=== PATIENT | female | born 1970 | race Caucasian/White ===

== ENCOUNTER 2019-06-10 09:57 | Emergency (ER) | payer OTHER, SELFPAY ==
[2019-06-10 10:10] VITALS: BP 113/77; PULSE 101; RESP 20; O2SAT 99
[2019-06-10 10:11] VITALS: BP 113/77; PULSE 92; RESP 18; TEMP 36.6; O2SAT 100; BMI 25.8
--- NOTE | 2019-06-10 10:29 | ED_ITS ---
HPI - Nausea/Vomiting/Diarrhea General: Chief complaint: Nausea/Vomiting/Diarrhea Stated complaint: Diabetic needs fluids Time Seen by Provider: 06/10/19 10:10 Source: patient Mode of arrival: ambulatory Limitations: no limitations History of Present Illness: HPI Narrative: 48-year-old female has a history of type I diabetic and states she has had a vomiting and diarrhea for last day starting roughly 8 hours ago. She had some abdominal cramping as well. She was concerned as her sugar was at 300 wanted to be seen to make sure she does not go into DKA. She denies any fevers. Patient is not tachycardic. MD elicited complaint: nausea and vomiting Onset (ago): hour(s) Description of vomiting: food contents Associated nausea: Yes Associated abdominal pain: Yes Location of pain: Diffuse Pain consistency: intermittent Severity: mild Quality: cramping Exacerbating factors: none Relieving factors: none Associated symtoms: Reports nausea; Denies change in vision, chest pain or headache(s) Review of Systems Const: Denies: fever or chills Eyes: Denies: change in vision ENMT: Denies: throat pain or mouth pain Card: Denies: chest pain Resp: Denies: shortness of breath GI: Reports: abdominal pain, nausea and vomiting; Denies: diarrhea : Denies: difficulty urinating Musc: Denies: back pain or joint pain Skin/Breast: Denies: rash Neuro: Denies: headache or behavioral changes Psych: Denies: depression Endo: Denies: excessive urination Murali/Lymph: Denies: easy bruising All/Imm: Denies: hives PFSH ED PFSH: Statuses (acute, chronic, etc) shown below reflect problem list status as previously entered and may not be historically accurate Social History Smoking and tobacco status: never smoked Physical Exam Const: COMMON NORMALS: no apparent distress and healthy appearing HENMT: COMMON NORMALS: normocephalic and external nose normal HEAD & SCALP: normocephalic NOSE: external nose normal and no nasal discharge (nasal dischage) Eye: COMMON NORMALS: PERRL PUPIL: Yes PERRL Neck/C-Spine: COMMON NORMALS: full ROM and no lymphadenopathy Chest: COMMONS NORMALS: inspection of chest normal Resp: COMMON NORMALS: normal respiratory effort and clear to auscultation bilaterally AUSCULTATION: clear to auscultation bilaterally Cardio: COMMON NORMALS: regular rate and regular rhythm RATE: regular rate RHYTHM: regular rhythm GI: COMMON NORMALS: soft to palpation PALPATION: Yes soft Extremity: COMMON NORMALS: normal to inspection, full ROM and normal capillary refill Psych: COMMON NORMALS: mental status grossly normal and cooperative Skin: COMMON NORMALS: no rashes or lesions noted GENERAL SKIN EXAM: no rashes or lesions noted Course Vital Signs: Vital signs: Vital Signs Temperature 97.8 F 06/10/19 10:11 Pulse Rate 82 06/10/19 12:50 Respiratory Rate 18 06/10/19 12:50 Blood Pressure 142/72 06/10/19 12:50 Pulse Oximetry 97 06/10/19 12:50 MDM - Nausea/Vomiting/Diarrhea MDM Narrative: Medical decision making narrative: Patient presents here with vomiting along with dehydration. Patient has hyperglycemia without DKA. Patient's blood sugars improving with IV fluids here and she feels improved. She does have Zofran at home and is stable for discharge. She is to follow-up with her primary care doctor in 2 to 5 days and return if worsening. Lab Data: Labs: Lab Results 06/10/19 06/10/19 06/10/19 Range/Units 10:37 10:37 11:11 WBC 6.6 (4.0-10.0) 10^3/ uL RBC 5.00 (4.1-5.3) 10^6/u L Hgb 13.7 (11.5-15.3) g/dL Hct 42.1 (37.0-47.0) % MCV 84.2 (81-99) fL MCH 27.4 L (28.0-34.0) pg MCHC 32.5 (30.0-36.0) g/dL RDW 13.3 (12.1-15.1) % Plt Count 236 (130-400) 10^3/c mm MPV 9.8 (7.4-10.4) fL Neut % (Auto) 83.2 % Lymph % (Auto) 12.7 % [place] % (Auto) 3.2 % Eos % (Auto) 0.3 % Baso % (Auto) 0.3 % Neut # (Auto) 5.5 (1.8-7.7) 10^3/u L Lymph # (Auto) 0.8 (0.8-4.8) 10^3/u L [place] # (Auto) 0.2 (0.2-0.9) 10^3/u L Eos # (Auto) 0.0 (0.0-0.8) 10^3/u L Baso # (Auto) 0.0 (0.0-0.1) 10^3/u L Nucleated RBC % (a uto) 0 % Nucleated RBCs # 0.0 /100WBC Sodium 137 (136-145) mmol/L Potassium 3.8 (3.5-5.1) mmol/L Chloride 99 (98-107) mmol/L Carbon Dioxide 24 (22-29) mmol/L Anion Gap 17.8 (5-19) BUN 18 (6-20) mg/dL Creatinine 0.6 (0.5-0.9) mg/dL GFR Calculation 107.6 (90-130) mL/min Glucose 324 H (74-109) mg/dL Calcium 10.0 (8.6-10.0) mg/Dl Total Bilirubin 0.4 (0.15-1.2) mg/dL AST 20 (0-32) U/L ALT 22 (0-33) U/L Alkaline Phosphata se 66 (35-105) IU/L Total Protein 7.1 (6.6-8.7) g/dL Albumin 5.1 (3.5-5.2) g/dL Globulin 2.0 (1.3-4.6) g/dL Lipase 10 L (13-60) U/L Urine Color Yellow (Yellow) Urine Appearance Clear (CLEAR) Urine pH 5 (5-7) Ur Specific Gravit y 1.020 (1.005-1.030) Urine Protein Neg (Negative) Urine Glucose (UA) 4+ H (Normal) Urine Ketones 2+ H (Negative) Urine Occult Blood Neg (Negative) Urine Nitrate Negative (Negative) Urine Bilirubin Neg (NEGATIVE) Urine Urobilinogen Norm (Negative) mg/dL Ur Leukocyte Qi ase Negative (Negative) Urine RBC None (0-2) /hpf Urine WBC Rare (0-5) /hpf Ur Squamous Epith Cells 0-4 H (0-5) Urine Bacteria None (NONE) Urine Mucus 1+ Urine Yeast Trace Discharge Plan Discharge Patient Disposition: Home, Self-Care Clinical Impression: Acute hyperglycemia Vomiting Qualifiers: Vomiting type: unspecified Vomiting Intractability: non-intractable Nausea presence: with nausea Qualified Code(s): R11.2 - Nausea with vomiting, unspecified Condition: Stable Prescriptions: No Action Novolog Mix 70-30 U-100 Insuln 100 unit/mL (70-30) Solution 0 sliding scale dose SUBCUT PRN RF: 0 Toujeo SoloStar U-300 Insulin 300 unit/mL (1.5 mL) Insulin Pen 30 unit SUBCUT DAILY RF: 0 gabapentin 100 mg Capsule 100 mg PO BID RF: 0 Discharge Orders: Discharge Order (Routine); Ordered 06/10/19 Ordered By: Dom Smith Referrals: Steve Lerma MD [Family Provider] - Discharge Diet: Advance as tolerated Discharge Activity: Resume usual activity Patient Instructions: Vomiting - Adult Discharge Date/Time: 06/10/19 12:55 Coding Level of Care Code ED Newborn Hearing Screener for Nabil Manzo Exam Problem Focused
[2019-06-10 10:43] LABS: Basophils % 0.3 %; Eosinophils % 0.3 %; Hematocrit 42.1 % (37.0-47.0); Hemoglobin 13.7 g/dL (11.5-15.3); Lymphocytes # 0.8 10^3/uL (0.8-4.8); Lymphocytes % 12.7 %; Mean Corpuscular HGB Conc 32.5 g/dL (30.0-36.0); Mean Corpuscular Hemoglobin 27.4 pg (28.0-34.0); Mean Corpuscular Volume 84.2 fL (81-99); Mean Platelet Volume 9.8 fL (7.4-10.4); Monocytes # 0.2 10^3/uL (0.2-0.9); Monocytes % 3.2 %; Neutrophils # 5.5 10^3/uL (1.8-7.7); Neutrophils % 83.2 %; Nucleated Red Blood Cells % 0 %; Platelet Count 236 10^3/cmm (130-400); Red Cell Distribution Width 13.3 % (12.1-15.1); White Blood Count 6.6 10^3/uL (4.0-10.0)
[2019-06-10 10:58] LABS: Alanine Aminotransferase 22 U/L (0-33); Albumin Level 5.1 g/dL (3.5-5.2); Alkaline Phosphatase 66 IU/L (35-105); Anion Gap 17.8 (5-19); Aspartate Amino Transferase 20 U/L (0-32); Blood Urea Nitrogen 18 mg/dL (6-20); Carbon Dioxide 24 mmol/L (22-29); Chloride 99 mmol/L (98-107); Glomerular Filtration Rate 107.6 mL/min (90-130); Glucose 324 mg/dL (74-109); Lipase 10 U/L (13-60); Potassium 3.8 mmol/L (3.5-5.1); Sodium 137 mmol/L (136-145); Total Bilirubin 0.4 mg/dL (0.15-1.2); Total Protein 7.1 g/dL (6.6-8.7)
[2019-06-10 11:00] VITALS: BP 113/79; PULSE 87; RESP 15; O2SAT 98
[2019-06-10] MEDS: sodium chloride 0.9% 1,000 ML 999 ML IV (11:00)
[2019-06-10] MEDS: ondansetron 2 mg/ML SDV 2 mL 4 MG IVP (11:00)
[2019-06-10 11:30] VITALS: BP 108/70; PULSE 84; RESP 15; O2SAT 100
[2019-06-10 11:40] LABS: Glucose Urine UA 4+ (Normal); Protein Urine Neg (Negative); Urine Appearance Clear (CLEAR); Urine Color Yellow (Yellow); pH Urine 5 (5-7)
[2019-06-10 11:41] LABS: Bilirubin Urine Neg (NEGATIVE); Blood Urine Neg (Negative); Ketones Urine 2+ (Negative); Leukocyte Esterase Urine Negative (Negative); Nitrate Urine Negative (Negative); Urobilinogen Urine Norm (Negative)
[2019-06-10 11:43] LABS: Add Urine Culture? No; Squamous Epithelial Cell Urine 0-4 (0-5)
[2019-06-10 11:44] LABS: Mucus Urine 1+; WBC Urine RARE /hpf (0-5)
[2019-06-10 11:55] VITALS: BP 114/69; PULSE 91; RESP 21; O2SAT 99
--- NOTE | 2019-06-10 11:55 | PC.NURSE ---
doctor in room
[2019-06-10] MEDS: ketorolac 30 mg/mL INJ IVP (12:29)
[2019-06-10 12:50] VITALS: BP 142/72; PULSE 82; RESP 18; O2SAT 97
== END 2019-06-10 12:55 | disposition home or self-care (01) ==
PROVIDERS: Emergency Provider Emergency Medicine; Family Provider Internal Medicine
DX: R73.9 Hyperglycemia, unspecified (principal); Z79.4 Long term (current) use of insulin
CPT/HCPCS: 36415; 80053; 81001; 83690; 85025; 96360; 96361; 96374; 99282; J1885; J2405; J7030

== ENCOUNTER → 2020-03-12 16:09 | Outpatient (BNVA) | payer OTHER, SELFPAY | PROVIDERS: Family Provider Internal Medicine; Visit Provider Internal Medicine | DX: E10.21 Type 1 diabetes mellitus with diabetic nephropathy (principal); E10.40 Type 1 diabetes mellitus with diabetic neuropathy, unspecified; Z79.4 Long term (current) use of insulin; E78.5 Hyperlipidemia, unspecified | CPT/HCPCS: 99204 ==

== ENCOUNTER → 2020-04-08 09:22 | Outpatient (BNVA) | payer OTHER, SELFPAY | PROVIDERS: Family Provider Internal Medicine; Visit Provider Internal Medicine | DX: E10.21 Type 1 diabetes mellitus with diabetic nephropathy (principal); E10.40 Type 1 diabetes mellitus with diabetic neuropathy, unspecified; Z79.4 Long term (current) use of insulin; E78.5 Hyperlipidemia, unspecified | CPT/HCPCS: 99214 ==

== ENCOUNTER → 2020-06-30 16:00 | Outpatient (BNVA) | payer OTHER, SELFPAY | PROVIDERS: Family Provider Internal Medicine; Visit Provider Nurse Practitioner Family | DX: Z20.828 Contact with and (suspected) exposure to other viral communicable diseases (principal); J06.9 Acute upper respiratory infection, unspecified | CPT/HCPCS: 87635 ==

== ENCOUNTER 2020-07-03 08:45 | Outpatient (CLI) | payer OTHER, SELFPAY ==
--- NOTE | 2020-07-03 09:08 | A.OFFVIS_ITS ---
Patient Information [facility] COVID test results: Nasal/Oral Coronavirus 2019 PCR Detected H 06/30/20 16:00 06/30/20 Criteria/Plan Inclusion/Exclusion Criteria weight >/= 40kg has diabetes not requiring hospitalization and not requiring oxygen (if not chronically on oxygen) Patient education patient/caregiver received/reviewed fact sheet, Emergency Use Authorization/unapproved drug status discussed with patient/caregiver, alternatives to this treatment discussed with patient/caregiver, risks and benefits of medication reviewed with patient/caregiver, patient/caregiver given opportunity for questions, which were answered and patient/caregiver consents to receiving Monoclonal Antibody Treatment Plan for treatment Meets criteria for Monoclonal Antibody infusion Ordering Monoclonal Antibody infusion for today
[2020-07-03 09:09] VITALS: BP 106/68; PULSE 78; RESP 17; O2SAT 99
[2020-07-03 09:19] VITALS: BMI 27.4
[2020-07-03 09:20] VITALS: BP 119/76; PULSE 89; RESP 17; O2SAT 99
[2020-07-03 10:21] VITALS: BP 100/77; PULSE 79; RESP 16; O2SAT 99
[2020-07-03 10:48] VITALS: BP 103/76; PULSE 79; RESP 18; O2SAT 99
[2020-07-03 11:35] VITALS: BP 106/73; PULSE 77; RESP 17; O2SAT 98
[2020-07-03 11:42] VITALS: BP 106/73; PULSE 77; RESP 17; O2SAT 98
--- NOTE | 2020-07-10 16:05 | DCPLANNER ---
Addendum entered by Julia Bryant 07/17/20 16:15: manager strategic marketing called to check on patient after getting the BAM infusion. manager strategic marketing spoke with patient, she stated that she was doing really good, she is having a hard time getting rid of a cough that she has but other than that feeling really good. Patient also stated that she has not been admitted to hospital anywhere. Original Note: manager strategic marketing had message that patient received the BAM infusion. manager strategic marketing called to check on patient after getting the infusion. Patient stated that before the infusion she had every symptom, she had a fever, body aches, her bones hurt, she had a sore throat, she felt exhausted. Patient stated that after the infusion she is feeling much better, she still has a sore throat, and cough.
== END 2020-07-03 11:43 | disposition home or self-care (01) ==
LOC: OPS 08:46
PROVIDERS: Referring Provider Nurse Practitioner Family; Visit Provider Internal Medicine
DX: U07.1 COVID-19 (principal)

== ENCOUNTER 2021-01-12 11:49 | Inpatient (IN) | payer OTHER, SELFPAY ==
--- NOTE | 2021-01-12 12:03 | ECG_ITS ---
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 Measurements Intervals [place] Rate: 107 P: 76 ME: 136 QRS: 93 QRSD: 89 T: 46 QT: 323 QTc: 432 Interpretive Statements SINUS TACHYCARDIA BORDERLINE RIGHT AXIS DEVIATION [QRS AXIS > 90] ABNORMAL RHYTHM ECG Compared to ECG 01/07/2018 10:08:46 Short [place] interval no longer present Electronically Signed On 01-15-2021 7:46:08 CDT by Divya Woodward M.D. [id number]
[2021-01-12 13:03] VITALS: BP 105/71; PULSE 108; RESP 19; TEMP 36.9; O2SAT 98
--- NOTE | 2021-01-12 13:24 | XRR_ITS ---
PROCEDURE INFORMATION: Exam: XR Right Toe(s) Exam date and time: 01/12/2021 1:24 PM Age: 50 years old Clinical indication: Condition or disease; Other: Infection; Additional info: Great toe infection TECHNIQUE: Imaging protocol: XR Right toes. Views: Minimum 2 views. COMPARISON: No relevant prior studies available. FINDINGS: Bones/joints: There is no evidence for acute fracture or malalignment. No radiographic evidence for osteomyelitis. The joint space is intact. Soft tissues: There is soft tissue swelling of the right 1st digit. XR/XR toe RT min 2V 38006 IMPRESSION: No radiographic evidence for osteomyelitis.
[2021-01-12 14:02] LABS: Basophils # 0.1 10^3/uL (0.0-0.1); Basophils % 0.5 %; Eosinophils % 0.3 %; Hematocrit 45.6 % (37.0-47.0); Hemoglobin 14.6 g/dL (11.5-15.3); Lymphocytes # 1.1 10^3/uL (0.8-4.8); Lymphocytes % 10.5 %; Mean Corpuscular Hemoglobin 27.8 pg (28.0-34.0); Mean Corpuscular Volume 86.7 fL (81-99); Mean Platelet Volume 10.1 fL (7.4-10.4); Monocytes # 0.4 10^3/uL (0.2-0.9); Monocytes % 3.8 %; Neutrophils # 8.79 10^3/uL (1.8-7.7); Neutrophils % 84.4 %; Nucleated Red Blood Cells % 0 %; Platelet Count 221 10^3/cmm (130-400); Red Blood Count 5.26 10^6/uL (4.1-5.3); Red Cell Distribution Width 12.9 % (12.1-15.1); White Blood Count 10.4 10^3/uL (4.0-10.0)
--- NOTE | 2021-01-12 14:03 | ECG_ITS ---
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 Measurements Intervals [place] Rate: 120 P: 72 KS: 112 QRS: 67 QRSD: 90 T: 46 QT: 316 QTc: 448 Interpretive Statements SINUS TACHYCARDIA WITH SHORT [place] INTERVAL ABNORMAL RHYTHM ECG Compared to ECG 01/12/2021 20:54:33 Short [place] interval now present Electronically Signed On 01-15-2021 10:05:29 CDT by Divya Woodward M.D. [id number]
[2021-01-12 14:32] LABS: Troponin(5th) Baseline 8 ng/L (0-10)
[2021-01-12 14:33] LABS: Ketone (Acetest) Serum Positive (Negative)
[2021-01-12 15:19] LABS: Alanine Aminotransferase 54 U/L (0-33); Albumin Level 4.7 g/dL (3.5-5.2); Alkaline Phosphatase 93 IU/L (35-105); Anion Gap 29.8 (5-19); Aspartate Amino Transferase 29 U/L (0-32); Blood Urea Nitrogen 16 mg/dL (6-20); C Reactive Protein 12.7 mg/L (0.0-4.9); Calcium 9.6 mg/dL (8.5-10.5); Carbon Dioxide 14 mmol/L (22-29); Chloride 96 mmol/L (98-107); Globulin 3.5 g/dL (1.3-4.6); Glomerular Filtration Rate 89.3 mL/min (90-130); Glucose 349 mg/dL (65-115); Osmolality Calculated 295 mOsm/kg (285-295); Potassium 4.8 mmol/L (3.5-5.1); Sodium 135 mmol/L (136-145); Total Bilirubin 0.4 mg/dL (0.15-1.2); Total Protein 8.2 g/dL (6.6-8.7)
--- NOTE | 2021-01-12 18:03 | ECG_ITS ---
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 Measurements Intervals [place] Rate: 121 P: 66 VA: 118 QRS: 68 QRSD: 89 T: 56 QT: 351 QTc: 499 Interpretive Statements SINUS TACHYCARDIA WITH SHORT [place] INTERVAL NONSPECIFIC T-WAVE ABNORMALITY ABNORMAL RHYTHM ECG Compared to ECG 01/12/2021 23:40:23 T-wave abnormality now present Electronically Signed On 01-15-2021 10:04:55 CDT by Divya Woodward M.D. [id number]
[2021-01-12 18:04] LABS: Lactic Sepsis W/Reflex 1.7 mmol/L (0.5-2.2)
[2021-01-12 18:22] LABS: Glucose Point of Care 380 mg/dL (70-110)
[2021-01-12 20:02] LABS: ABG PCO2 21.3 mmHg (35-45); Arterial Blood Gas Hematocrit 43.6 % (37-47); Base Excess ABG -18.4 mmol/L (-2.0-2.0); Blood Gas Allen Test Pos; Blood Gas Sample Site Radial, left; Blood Gas Sample Type Arterial; Oxygen Device ROOM AIR
[2021-01-12 20:03] LABS: ABG PH Result 7.18 (7.35-7.45)
[2021-01-12 20:46] LABS: Troponin 5 6HR 6.95 ng/L (0-10)
[2021-01-12 20:47] LABS: Troponin 5 6HR Delta -1.05 ng/L (0-12)
--- NOTE | 2021-01-12 21:02 | ED_ITS ---
HPI - General Adult General: Chief complaint: General Medical Stated complaint: DIARRHEA/WEAKNESS/BURNING IN CHEST Time Seen by Provider: 01/12/21 20:52 Source: patient Mode of arrival: ambulatory Limitations: no limitations History of Present Illness: HPI narrative: 42-year-old female has history of type 1 diabetes. States that she thinks she may be in DKA she been feeling sick all day and tachycardic. Her blood sugars been running in the 3 and 400s as well. She states she has had slight redness to her right great toe. Denies any vomiting or diarrhea. Denies any fevers. Associated symptoms: Deny chest pain, dyspnea, headache(s), nausea, rash or vomiting Review of Systems Const: Denies: fever(s), chills, body aches or change in appetite Eyes: Denies: blurry vision or eye discomfort ENMT: Denies: throat pain or dental pain Card: Denies: chest pain Resp: Denies: dyspnea GI: Denies: abdominal pain, nausea, vomiting or diarrhea : Denies: dysuria Musc: Denies: neck pain or back pain Skin/Breast: Denies: rash Neuro: Denies: headache(s) Psych: Denies: depression Murali/Lymph: Denies: easy bruising All/Imm: Denies: urticaria PFSH ED PFSH: Medical History (Updated 01/13/21 @ 02:07 by Dom Smith MD) FH: cholecystectomy Type 1 diabetes Surgical History History of partial hysterectomy Social History Smoking and tobacco status: never smoked Alcohol intake: never Physical Exam Const: COMMON NORMALS: no acute distress, patient oriented x3 and healthy appearing HENMT: COMMON NORMALS: normocephalic and atraumatic HEAD & SCALP: normocephalic and atraumatic Eye: COMMON NORMALS: Equal, round and reactive pupils present and EOMs intact bilaterally PUPIL: Yes Equal, round and reactive pupils present Neck/C-Spine: COMMON NORMALS: full ROM and supple Chest: COMMONS NORMALS: normal inspection of the chest and normal palpation of entire chest wall Resp: COMMON NORMALS: normal respiratory effort, No retractions, No use of accessory muscles and clear to auscultation bilaterally AUSCULTATION: clear to auscultation bilaterally Cardio: COMMON NORMALS: regular rhythm and No murmurs present (Cardio) RATE: tachycardic RHYTHM: regular rhythm GI: COMMON NORMALS: Normal to inspection, nondistended, normoactive bowel sounds present, Soft to palpation, non-tender and no masses PALPATION: Yes Soft to palpation Extremity: COMMON NORMALS: normal to inspection and full ROM Neuro: COMMON NORMALS: patient oriented x3, moves all extremities and no focal motor deficits Psych: COMMON NORMALS: mental status grossly normal, Normal thought process present and cooperative THOUGHT PROCESS: Normal thought process present Skin: COMMON NORMALS: no rashes or lesions noted and no wounds GENERAL SKIN EXAM: no rashes or lesions noted Course Vital Signs: Vital signs: Vital Signs Temperature 98.4 F 01/12/21 13:03 Pulse Rate 119 H 01/13/21 01:08 Respiratory Rate 16 01/13/21 01:08 Blood Pressure 97/48 01/13/21 01:08 Pulse Oximetry 100 01/13/21 01:08 MDM - General Adult MDM Narrative: Medical decision making narrative: Patient presents here in DKA. I spoke to Dr. Chavez at 2100 and she placed orders in and will plan on being an ICU admission and hold in the ER till an ICU bed is available. Lab Data: Labs: Lab Results 01/12/21 01/12/21 01/12/21 Range/Units 13:02 13:48 13:48 WBC 10.4 H (4.0-10.0) 10^3/ uL RBC 5.26 (4.1-5.3) 10^6/u L Hgb 14.6 (11.5-15.3) g/dL Hct 45.6 (37.0-47.0) % MCV 86.7 (81-99) fL MCH 27.8 L (28.0-34.0) pg MCHC 32.0 (30.0-36.0) g/dL RDW 12.9 (12.1-15.1) % Plt Count 221 (130-400) 10^3/c mm MPV 10.1 (7.4-10.4) fL Neut % (Auto) 84.4 % Lymph % (Auto) 10.5 % [place] % (Auto) 3.8 % Eos % (Auto) 0.3 % Baso % (Auto) 0.5 % Neut # (Auto) 8.79 H (1.8-7.7) 10^3/u L Lymph # (Auto) 1.1 (0.8-4.8) 10^3/u L [place] # (Auto) 0.4 (0.2-0.9) 10^3/u L Eos # (Auto) 0.0 (0.0-0.8) 10^3/u L Baso # (Auto) 0.1 (0.0-0.1) 10^3/u L Nucleated RBC % (a uto) 0 % Nucleated RBCs # 0.0 /100WBC Specimen Type Sample Site ABG pH (7.35-7.45) ABG pCO2 (35-45) mmHg ABG pO2 (80.0-100.0) mmH g ABG HCO3 (22-26) mmol/L ABG Base Excess (-2.0-2.0) mmol/ L Genaro Test Hematocrit (37-47) % O2 Delivery Device Map Clerk ID Sodium 135 L (136-145) mmol/L Potassium 4.8 (3.5-5.1) mmol/L Chloride 96 L (98-107) mmol/L Carbon Dioxide 14 L (22-29) mmol/L Anion Gap 29.8 H (5-19) BUN 16 (6-20) mg/dL Creatinine 0.7 (0.5-0.9) mg/dL GFR Calculation 89.3 L (90-130) mL/min Glucose 349 H (65-115) mg/dL POC Glucose 380 H (70-110) mg/dL Calculated Osmolal ity 295 (285-295) mOsm/k g Lactic Acid (0.5-2.2) mmol/L Calcium 9.6 (8.5-10.5) mg/dL Total Bilirubin 0.4 (0.15-1.2) mg/dL AST 29 (0-32) U/L ALT 54 H (0-33) U/L Alkaline Phosphata se 93 (35-105) IU/L Troponin T Baselin e (0-10) ng/L Troponin T 120 Min [place] (0-10) ng/L Delta Troponin T (0-10) ABS# Troponin T Hi Sens 6Hr (0-10) ng/L Troponin T Hi Sens 6Hr Delta (0-12) ng/L C-Reactive Protein 12.7 H (0.0-4.9) mg/L Total Protein 8.2 (6.6-8.7) g/dL Albumin 4.7 (3.5-5.2) g/dL Globulin 3.5 (1.3-4.6) g/dL Urine Color (Yellow) Urine Appearance (CLEAR) Urine pH (5-7) Ur Specific Gravit y (1.005-1.030) Urine Protein (Negative) Urine Glucose (UA) (Normal) Urine Ketones (Negative) Urine Blood (Negative) Urine Nitrate (Negative) Urine Bilirubin (Negative) Urine Urobilinogen (Negative) mg/dL Ur Leukocyte Qi ase (Negative) Serum Ketones (Negative) 01/12/21 01/12/21 01/12/21 Range/Units 13:48 13:48 17:20 WBC (4.0-10.0) 10^3/ uL RBC (4.1-5.3) 10^6/u L Hgb (11.5-15.3) g/dL Hct (37.0-47.0) % MCV (81-99) fL MCH (28.0-34.0) pg MCHC (30.0-36.0) g/dL RDW (12.1-15.1) % Plt Count (130-400) 10^3/c mm MPV (7.4-10.4) fL Neut % (Auto) % Lymph % (Auto) % [place] % (Auto) % Eos % (Auto) % Baso % (Auto) % Neut # (Auto) (1.8-7.7) 10^3/u L Lymph # (Auto) (0.8-4.8) 10^3/u L [place] # (Auto) (0.2-0.9) 10^3/u L Eos # (Auto) (0.0-0.8) 10^3/u L Baso # (Auto) (0.0-0.1) 10^3/u L Nucleated RBC % (a uto) % Nucleated RBCs # /100WBC Specimen Type Sample Site ABG pH (7.35-7.45) ABG pCO2 (35-45) mmHg ABG pO2 (80.0-100.0) mmH g ABG HCO3 (22-26) mmol/L ABG Base Excess (-2.0-2.0) mmol/ L Genaro Test Hematocrit (37-47) % O2 Delivery Device Map Clerk ID Sodium (136-145) mmol/L Potassium (3.5-5.1) mmol/L Chloride (98-107) mmol/L Carbon Dioxide (22-29) mmol/L Anion Gap (5-19) BUN (6-20) mg/dL Creatinine (0.5-0.9) mg/dL GFR Calculation (90-130) mL/min Glucose (65-115) mg/dL POC Glucose (70-110) mg/dL Calculated Osmolal ity (285-295) mOsm/k g Lactic Acid (0.5-2.2) mmol/L Calcium (8.5-10.5) mg/dL Total Bilirubin (0.15-1.2) mg/dL AST (0-32) U/L ALT (0-33) U/L Alkaline Phosphata se (35-105) IU/L Troponin T Baselin e 8 (0-10) ng/L Troponin T 120 Min [place] 8.50 (0-10) ng/L Delta Troponin T 0.50 (0-10) ABS# Troponin T Hi Sens 6Hr (0-10) ng/L Troponin T Hi Sens 6Hr Delta (0-12) ng/L C-Reactive Protein (0.0-4.9) mg/L Total Protein (6.6-8.7) g/dL Albumin (3.5-5.2) g/dL Globulin (1.3-4.6) g/dL Urine Color (Yellow) Urine Appearance (CLEAR) Urine pH (5-7) Ur Specific Gravit y (1.005-1.030) Urine Protein (Negative) Urine Glucose (UA) (Normal) Urine Ketones (Negative) Urine Blood (Negative) Urine Nitrate (Negative) Urine Bilirubin (Negative) Urine Urobilinogen (Negative) mg/dL Ur Leukocyte Qi ase (Negative) Serum Ketones Positive H (Negative) 01/12/21 01/12/21 01/12/21 Range/Units 17:20 19:55 20:05 WBC (4.0-10.0) 10^3/ uL RBC (4.1-5.3) 10^6/u L Hgb (11.5-15.3) g/dL Hct (37.0-47.0) % MCV (81-99) fL MCH (28.0-34.0) pg MCHC (30.0-36.0) g/dL RDW (12.1-15.1) % Plt Count (130-400) 10^3/c mm MPV (7.4-10.4) fL Neut % (Auto) % Lymph % (Auto) % [place] % (Auto) % Eos % (Auto) % Baso % (Auto) % Neut # (Auto) (1.8-7.7) 10^3/u L Lymph # (Auto) (0.8-4.8) 10^3/u L [place] # (Auto) (0.2-0.9) 10^3/u L Eos # (Auto) (0.0-0.8) 10^3/u L Baso # (Auto) (0.0-0.1) 10^3/u L Nucleated RBC % (a uto) % Nucleated RBCs # /100WBC Specimen Type Arterial Sample Site Radial, left ABG pH 7.18 L* (7.35-7.45) ABG pCO2 21.3 L (35-45) mmHg ABG pO2 113.0 H (80.0-100.0) mmH g ABG HCO3 8.0 L (22-26) mmol/L ABG Base Excess -18.4 L (-2.0-2.0) mmol/ L Genaro Test Pos Hematocrit 43.6 (37-47) % O2 Delivery Device Room air Map Clerk ID ellpe Sodium (136-145) mmol/L Potassium (3.5-5.1) mmol/L Chloride (98-107) mmol/L Carbon Dioxide (22-29) mmol/L Anion Gap (5-19) BUN (6-20) mg/dL Creatinine (0.5-0.9) mg/dL GFR Calculation (90-130) mL/min Glucose (65-115) mg/dL POC Glucose (70-110) mg/dL Calculated Osmolal ity (285-295) mOsm/k g Lactic Acid 1.7 (0.5-2.2) mmol/L Calcium (8.5-10.5) mg/dL Total Bilirubin (0.15-1.2) mg/dL AST (0-32) U/L ALT (0-33) U/L Alkaline Phosphata se (35-105) IU/L Troponin T Baselin e (0-10) ng/L Troponin T 120 Min [place] (0-10) ng/L Delta Troponin T (0-10) ABS# Troponin T Hi Sens 6Hr 6.95 (0-10) ng/L Troponin T Hi Sens 6Hr Delta -1.05 L (0-12) ng/L C-Reactive Protein (0.0-4.9) mg/L Total Protein (6.6-8.7) g/dL Albumin (3.5-5.2) g/dL Globulin (1.3-4.6) g/dL Urine Color (Yellow) Urine Appearance (CLEAR) Urine pH (5-7) Ur Specific Gravit y (1.005-1.030) Urine Protein (Negative) Urine Glucose (UA) (Normal) Urine Ketones (Negative) Urine Blood (Negative) Urine Nitrate (Negative) Urine Bilirubin (Negative) Urine Urobilinogen (Negative) mg/dL Ur Leukocyte Qi ase (Negative) Serum Ketones (Negative) 01/12/21 01/12/21 01/12/21 Range/Units 20:54 21:05 21:38 WBC (4.0-10.0) 10^3/ uL RBC (4.1-5.3) 10^6/u L Hgb (11.5-15.3) g/dL Hct (37.0-47.0) % MCV (81-99) fL MCH (28.0-34.0) pg MCHC (30.0-36.0) g/dL RDW (12.1-15.1) % Plt Count (130-400) 10^3/c mm MPV (7.4-10.4) fL Neut % (Auto) % Lymph % (Auto) % [place] % (Auto) % Eos % (Auto) % Baso % (Auto) % Neut # (Auto) (1.8-7.7) 10^3/u L Lymph # (Auto) (0.8-4.8) 10^3/u L [place] # (Auto) (0.2-0.9) 10^3/u L Eos # (Auto) (0.0-0.8) 10^3/u L Baso # (Auto) (0.0-0.1) 10^3/u L Nucleated RBC % (a uto) % Nucleated RBCs # /100WBC Specimen Type Sample Site ABG pH (7.35-7.45) ABG pCO2 (35-45) mmHg ABG pO2 (80.0-100.0) mmH g ABG HCO3 (22-26) mmol/L ABG Base Excess (-2.0-2.0) mmol/ L Genaro Test Hematocrit (37-47) % O2 Delivery Device Map Clerk ID Sodium 131 L (136-145) mmol/L Potassium 5.1 (3.5-5.1) mmol/L Chloride 88 L (98-107) mmol/L Carbon Dioxide 10 L (22-29) mmol/L Anion Gap 38.1 H (5-19) BUN 22 H (6-20) mg/dL Creatinine 0.9 (0.5-0.9) mg/dL GFR Calculation 66.8 L (90-130) mL/min Glucose 485 H (65-115) mg/dL POC Glucose 469 H (70-110) mg/dL Calculated Osmolal ity 297 H (285-295) mOsm/k g Lactic Acid (0.5-2.2) mmol/L Calcium 9.4 (8.5-10.5) mg/dL Total Bilirubin (0.15-1.2) mg/dL AST (0-32) U/L ALT (0-33) U/L Alkaline Phosphata se (35-105) IU/L Troponin T Baselin e (0-10) ng/L Troponin T 120 Min [place] (0-10) ng/L Delta Troponin T (0-10) ABS# Troponin T Hi Sens 6Hr (0-10) ng/L Troponin T Hi Sens 6Hr Delta (0-12) ng/L C-Reactive Protein (0.0-4.9) mg/L Total Protein (6.6-8.7) g/dL Albumin (3.5-5.2) g/dL Globulin (1.3-4.6) g/dL Urine Color Yellow (Yellow) Urine Appearance Clear (CLEAR) Urine pH 5 (5-7) Ur Specific Gravit y 1.020 (1.005-1.030) Urine Protein Neg (Negative) Urine Glucose (UA) 4+ H (Normal) Urine Ketones 3+ H (Negative) Urine Blood Neg (Negative) Urine Nitrate Negative (Negative) Urine Bilirubin Neg (Negative) Urine Urobilinogen Norm (Negative) mg/dL Ur Leukocyte Qi ase Negative (Negative) Serum Ketones (Negative) 01/12/21 01/12/21 01/13/21 Range/Units 22:35 23:46 00:45 WBC (4.0-10.0) 10^3/ uL RBC (4.1-5.3) 10^6/u L Hgb (11.5-15.3) g/dL Hct (37.0-47.0) % MCV (81-99) fL MCH (28.0-34.0) pg MCHC (30.0-36.0) g/dL RDW (12.1-15.1) % Plt Count (130-400) 10^3/c mm MPV (7.4-10.4) fL Neut % (Auto) % Lymph % (Auto) % [place] % (Auto) % Eos % (Auto) % Baso % (Auto) % Neut # (Auto) (1.8-7.7) 10^3/u L Lymph # (Auto) (0.8-4.8) 10^3/u L [place] # (Auto) (0.2-0.9) 10^3/u L Eos # (Auto) (0.0-0.8) 10^3/u L Baso # (Auto) (0.0-0.1) 10^3/u L Nucleated RBC % (a uto) % Nucleated RBCs # /100WBC Specimen Type Sample Site ABG pH (7.35-7.45) ABG pCO2 (35-45) mmHg ABG pO2 (80.0-100.0) mmH g ABG HCO3 (22-26) mmol/L ABG Base Excess (-2.0-2.0) mmol/ L Genaro Test Hematocrit (37-47) % O2 Delivery Device Map Clerk ID Sodium 136 (136-145) mmol/L Potassium 4.2 (3.5-5.1) mmol/L Chloride 98 (98-107) mmol/L Carbon Dioxide 7 L* (22-29) mmol/L Anion Gap 35.2 H (5-19) BUN 24 H (6-20) mg/dL Creatinine 0.9 (0.5-0.9) mg/dL GFR Calculation 66.8 L (90-130) mL/min Glucose 410 H (65-115) mg/dL POC Glucose 484 H 452 H (70-110) mg/dL Calculated Osmolal ity 303 H (285-295) mOsm/k g Lactic Acid (0.5-2.2) mmol/L Calcium 8.3 L (8.5-10.5) mg/dL Total Bilirubin (0.15-1.2) mg/dL AST (0-32) U/L ALT (0-33) U/L Alkaline Phosphata se (35-105) IU/L Troponin T Baselin e (0-10) ng/L Troponin T 120 Min [place] (0-10) ng/L Delta Troponin T (0-10) ABS# Troponin T Hi Sens 6Hr (0-10) ng/L Troponin T Hi Sens 6Hr Delta (0-12) ng/L C-Reactive Protein (0.0-4.9) mg/L Total Protein (6.6-8.7) g/dL Albumin (3.5-5.2) g/dL Globulin (1.3-4.6) g/dL Urine Color (Yellow) Urine Appearance (CLEAR) Urine pH (5-7) Ur Specific Gravit y (1.005-1.030) Urine Protein (Negative) Urine Glucose (UA) (Normal) Urine Ketones (Negative) Urine Blood (Negative) Urine Nitrate (Negative) Urine Bilirubin (Negative) Urine Urobilinogen (Negative) mg/dL Ur Leukocyte Qi ase (Negative) Serum Ketones (Negative) 01/13/21 01/13/21 01/13/21 Range/Units 00:45 01:23 01:50 WBC (4.0-10.0) 10^3/ uL RBC (4.1-5.3) 10^6/u L Hgb (11.5-15.3) g/dL Hct (37.0-47.0) % MCV (81-99) fL MCH (28.0-34.0) pg MCHC (30.0-36.0) g/dL RDW (12.1-15.1) % Plt Count (130-400) 10^3/c mm MPV (7.4-10.4) fL Neut % (Auto) % Lymph % (Auto) % [place] % (Auto) % Eos % (Auto) % Baso % (Auto) % Neut # (Auto) (1.8-7.7) 10^3/u L Lymph # (Auto) (0.8-4.8) 10^3/u L [place] # (Auto) (0.2-0.9) 10^3/u L Eos # (Auto) (0.0-0.8) 10^3/u L Baso # (Auto) (0.0-0.1) 10^3/u L Nucleated RBC % (a uto) % Nucleated RBCs # /100WBC Specimen Type Arterial Sample Site Radial, left ABG pH 7.14 L* (7.35-7.45) ABG pCO2 18.0 L* (35-45) mmHg ABG pO2 110.0 H (80.0-100.0) mmH g ABG HCO3 6.1 L (22-26) mmol/L ABG Base Excess -20.9 L (-2.0-2.0) mmol/ L Genaro Test Pos Hematocrit 38.1 (37-47) % O2 Delivery Device Room air Map Clerk ID ellpe Sodium (136-145) mmol/L Potassium (3.5-5.1) mmol/L Chloride (98-107) mmol/L Carbon Dioxide (22-29) mmol/L Anion Gap (5-19) BUN (6-20) mg/dL Creatinine (0.5-0.9) mg/dL GFR Calculation (90-130) mL/min Glucose (65-115) mg/dL POC Glucose 382 H 398 H (70-110) mg/dL Calculated Osmolal ity (285-295) mOsm/k g Lactic Acid (0.5-2.2) mmol/L Calcium (8.5-10.5) mg/dL Total Bilirubin (0.15-1.2) mg/dL AST (0-32) U/L ALT (0-33) U/L Alkaline Phosphata se (35-105) IU/L Troponin T Baselin e (0-10) ng/L Troponin T 120 Min [place] (0-10) ng/L Delta Troponin T (0-10) ABS# Troponin T Hi Sens 6Hr (0-10) ng/L Troponin T Hi Sens 6Hr Delta (0-12) ng/L C-Reactive Protein (0.0-4.9) mg/L Total Protein (6.6-8.7) g/dL Albumin (3.5-5.2) g/dL Globulin (1.3-4.6) g/dL Urine Color (Yellow) Urine Appearance (CLEAR) Urine pH (5-7) Ur Specific Gravit y (1.005-1.030) Urine Protein (Negative) Urine Glucose (UA) (Normal) Urine Ketones (Negative) Urine Blood (Negative) Urine Nitrate (Negative) Urine Bilirubin (Negative) Urine Urobilinogen (Negative) mg/dL Ur Leukocyte Qi ase (Negative) Serum Ketones (Negative) 01/13/21 Range/Units 01:53 WBC (4.0-10.0) 10^3/ uL RBC (4.1-5.3) 10^6/u L Hgb (11.5-15.3) g/dL Hct (37.0-47.0) % MCV (81-99) fL MCH (28.0-34.0) pg MCHC (30.0-36.0) g/dL RDW (12.1-15.1) % Plt Count (130-400) 10^3/c mm MPV (7.4-10.4) fL Neut % (Auto) % Lymph % (Auto) % [place] % (Auto) % Eos % (Auto) % Baso % (Auto) % Neut # (Auto) (1.8-7.7) 10^3/u L Lymph # (Auto) (0.8-4.8) 10^3/u L [place] # (Auto) (0.2-0.9) 10^3/u L Eos # (Auto) (0.0-0.8) 10^3/u L Baso # (Auto) (0.0-0.1) 10^3/u L Nucleated RBC % (a uto) % Nucleated RBCs # /100WBC Specimen Type Sample Site ABG pH (7.35-7.45) ABG pCO2 (35-45) mmHg ABG pO2 (80.0-100.0) mmH g ABG HCO3 (22-26) mmol/L ABG Base Excess (-2.0-2.0) mmol/ L Genaro Test Hematocrit (37-47) % O2 Delivery Device Map Clerk ID Sodium (136-145) mmol/L Potassium (3.5-5.1) mmol/L Chloride (98-107) mmol/L Carbon Dioxide (22-29) mmol/L Anion Gap (5-19) BUN (6-20) mg/dL Creatinine (0.5-0.9) mg/dL GFR Calculation (90-130) mL/min Glucose (65-115) mg/dL POC Glucose 330 H (70-110) mg/dL Calculated Osmolal ity (285-295) mOsm/k g Lactic Acid (0.5-2.2) mmol/L Calcium (8.5-10.5) mg/dL Total Bilirubin (0.15-1.2) mg/dL AST (0-32) U/L ALT (0-33) U/L Alkaline Phosphata se (35-105) IU/L Troponin T Baselin e (0-10) ng/L Troponin T 120 Min [place] (0-10) ng/L Delta Troponin T (0-10) ABS# Troponin T Hi Sens 6Hr (0-10) ng/L Troponin T Hi Sens 6Hr Delta (0-12) ng/L C-Reactive Protein (0.0-4.9) mg/L Total Protein (6.6-8.7) g/dL Albumin (3.5-5.2) g/dL Globulin (1.3-4.6) g/dL Urine Color (Yellow) Urine Appearance (CLEAR) Urine pH (5-7) Ur Specific Gravit y (1.005-1.030) Urine Protein (Negative) Urine Glucose (UA) (Normal) Urine Ketones (Negative) Urine Blood (Negative) Urine Nitrate (Negative) Urine Bilirubin (Negative) Urine Urobilinogen (Negative) mg/dL Ur Leukocyte Qi ase (Negative) Serum Ketones (Negative) EKG Data^: EKG 1: Attestation: I personally reviewed and interpreted this EKG as follows: EKG interpretation date: 01/12/21 EKG interpretation time: 20:54 Interpretation: Sinus tach heart rate [address] or T wave abnormalities QRS 89 Q Tc 3 6 Computer generated interpretation: Toe X-Ray 01/12/21 13:24 IMPRESSION: No radiographic evidence for osteomyelitis. Critical Care Time Critical Care Time: Critical Care Time: Yes Total Critical Care Time: 36 Attestation: This case had a high probability of a clinically significant, sudden, or life threatening deterioration of this patient's condition which required my full and direct attention, intervention and personal management. Discharge Plan Discharge Patient Disposition: Admitted As Inpatient Clinical Impression: DKA (diabetic ketoacidoses) Qualifiers: Diabetes mellitus type: type 1 Diabetes mellitus complication detail: without coma Qualified Code(s): E10.10 - Type 1 diabetes mellitus with ketoacidosis without coma Condition: Stable Coding Level of Care Code ED [employer] Systems Specialist for g Fwd Exam Comprehensive
[2021-01-12] MEDS: sodium chloride 0.9% 1,000 ML 999 ML IV ×2 (21:25→23:12)
[2021-01-12 21:32] LABS: Blood Urea Nitrogen 22 mg/dL (6-20); Calcium 9.4 mg/dL (8.5-10.5); Carbon Dioxide 10 mmol/L (22-29); Chloride 88 mmol/L (98-107); Glomerular Filtration Rate 66.8 mL/min (90-130); Glucose 485 mg/dL (65-115); Osmolality Calculated 297 mOsm/kg (285-295); Sodium 131 mmol/L (136-145)
[2021-01-12 21:35] LABS: Anion Gap 38.1 (5-19); Potassium 5.1 mmol/L (3.5-5.1)
[2021-01-12 21:38] VITALS: BP 106/61; PULSE 108; RESP 18; O2SAT 100
[2021-01-12 21:42] LABS: Glucose Point of Care 469 mg/dL (70-110)
[2021-01-12 21:46] LABS: Add Urine Microscopic? NO; Charge for UA Resulting for Rev
[2021-01-12 21:53] LABS: Glucose Urine UA 4+ (Normal); Protein Urine Neg (Negative); Urine Appearance Clear (CLEAR); Urine Color Yellow (Yellow); pH Urine 5 (5-7)
[2021-01-12 21:54] LABS: Bilirubin Urine Neg (Negative); Blood Urine Neg (Negative); Ketones Urine 3+ (Negative); Leukocyte Esterase Urine Negative (Negative); Nitrate Urine Negative (Negative); Urobilinogen Urine Norm (Negative)
--- NOTE | 2021-01-12 22:24 | P.HP_ITS ---
Providers/Chief Complaint Admitting Physician: Alba Chavez MD Chief Complaint: DIARRHEA/WEAKNESS/BURNING IN CHEST History of Present Illness Latosha Hammonds is a 50 year old female with type 1 DM, recently switched to insulin pump, unclear if being used correctly or adequate insulin being delivered. Presenting today with weakness, nausea, vomiting and burning sensation in chest. Labs consistent with DKA with blood suhar ~400, metabolic acidosis, + serum ketones and increased anion gap. She has a right great toe cellulitis currently from cutting around her nail. Has chronic diarrhea, increased frequency over the last 2 months, currently at >3-4 episodes per day for several days of the week Review of Systems General: Reports: 10 or more systems reviewed and unremarkable except in HPI and below Const: Denies: fever(s), chills or body aches Eyes: Denies: change in vision, blurry vision or photophobia ENMT: Reports: hoarseness; Denies: throat pain, enlarged tonsils, odynophagia or nasal congestion Card: Denies: chest pain, palpitations, irregular heart rhythm, edema, swellin g of feet/ankles, lightheadedness, pre-syncope, dyspnea on exertion or orthopnea Resp: Denies: dyspnea, productive cough, non-productive cough, wheezing, stridor, pain on inspiration, change in phlegm color, hemoptysis or chest congestion GI: Denies: abdominal pain, nausea, vomiting, hematemesis, coffee ground emesis, dysphagia, heartburn, diarrhea, constipation, GI cramping, change in s tool character, hematochezia or melena : Denies: flank pain, difficulty voiding, dysuria, urinary frequency, urinary urgency, urinary hesitancy or hematuria Musc: Denies: neck pain, back pain, extremity pain, joint swelling, joint warmth or deformity Neuro: Denies: headache(s), numbness in extremities, weakness in extremities, sensory changes, difficulty walking, frequent falls, dizziness, vertigo, behavioral changes, Slurred speech present or seizure-like activity Psych: Denies: anxiety, depression, suicidal ideation or homicidal ideation Endo: Denies: polyuria, polydipsia, tired all the time, cold intolerance or h ot flashes Murali/Lymph: Denies: easy bruising or easy bleeding Medications/Allergies Home Medications Medication Instructions Recorded Confirmed Last Taken Type 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 sensor #9 ea 05/21/20 01/12/21 Unknown Rx gabapentin 100 mg capsule 100 mg PO BID 90 Days #180 cap NS 08/15/20 01/12/21 01/11/21 Rx 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 transmitter #3 ea 09/15/20 01/12/21 Unknown Rx 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 meter,continuous #1 ea 11/24/20 01/12/21 Unknown Rx insulin aspart U-100 100 unit/mL 15 unit SUBCUT TID #15 ml 01/08/21 01/12/21 01/12/21 Rx (3 mL) subcutaneous pen insulin glargine U-300 conc 300 42 unit SUBCUT DAILY 90 Days #12.6 01/08/21 01/12/21 Unknown Rx unit/mL (1.5 mL) subcutaneous pen ml Allergies Allergy/AdvReac Type Severity Reaction Status Date / Time morphine Allergy ALGY-Hives Verified 04/08/20 09:30 PFSH Acute PFSH: Medical History (Updated 01/13/21 @ 02:57 by Alba Chavez MD) COVID-24 Jun 2020 FH: cholecystectomy Type 1 diabetes Surgical History History of partial hysterectomy Social History Smoking and tobacco status: never smoked Alcohol intake: never Vitals/I&O/Wt Last Vital Signs Temp 98.4 F 01/12/21 13:03 Pulse 108 H 01/12/21 21:38 Resp 18 01/12/21 21:38 BP 106/61 01/12/21 21:38 Pulse Ox 100 01/12/21 21:38 Weight last 48 hrs Weight 83.915 kg Physical Exam Narrative: EXAM NARRATIVE: General: No acute distress, AO x3 HEENT: PERRLA, pupils bilaterally equal and reactive, pallors not present Chest: Normal vesicular breath sounds, no added sounds, equal good air entry bilaterally CVS: S1-S2 regular, no murmurs, no tachycardia, no gallops, no rubs Abdomen: Soft, nontender, no organomegaly, bowel sounds present Neuro: No focal deficits, no facial deformity, AO x3, power 5/5 in all limbs Extremities: small area of cellulitis around medial great toe R side Data : 01/12/21 13:48 01/13/21 00:45 A&P Assessment and plan (1) DKA (diabetic ketoacidoses): Admit to ICU Start insulin infusion per ICU DKA/HHS protocol IVF NS @ 125 cc/hr Once blood glucose less than 250, change fluids to d5NS Supplement K to keep level between 3.5-5 NPO until anion gap closes Status: Acute Qualifiers: Diabetes mellitus complication detail: without coma Diabetes mellitus type: type 1 Qualified Code(s): E10.10 - Type 1 diabetes mellitus with ketoacidosis without coma (2) Type 1 diabetes: Status: Acute (3) Cellulitis: Start cefazolin for empiric treatment, likely transition to oral once able to take po intake Status: Acute Attestations Medical Necessity Statement*: >2midnight anticipated for management of diabetic ketoacisosis, needs ICU level care, insulin infusion, IVF Critical Care Time: The high probability of a clinically significant, sudden or life threatening deterioration of the patient's [endocrine] system(s) required my full and direct attention, intervention and personal management. The critical care time is as shown. This time is in addition to time spent performing any reported procedures but includes the following: [x] Data and vital sign review and interpretation [x] Patient assessment, examination and intervention [x] Documentation [x] Medication orders and management Critical Care Time (min): 40 Coding Level of Care Code Acute Pantry [facility] for [facility] Fwd Diagnoses DKA (diabetic ketoacidoses) E10.10 Diabetes mellitus complication detail: without coma Diabetes mellitus type: type 1 Type 1 diabetes E10.9 Cellulitis L03.90
[2021-01-12 22:39] LABS: Glucose Point of Care 484 mg/dL (70-110)
[2021-01-12] MEDS: insulin regular-human 250 UNIT in sodium chloride 0.9% 250 ML IV (23:06)
[2021-01-12 23:08] VITALS: BP 98/39; PULSE 106; O2SAT 100
[2021-01-12] MEDS: enoxaparin 40 mg/0.4 mL Syringe SUBCUT (23:12)
[2021-01-12] MEDS: ondansetron 2 mg/ML SDV 2 mL 4 MG IVP (23:12)
[2021-01-12 23:49] LABS: Glucose Point of Care 452 mg/dL (70-110)
[2021-01-13] VITALS (16 sets, daily range): BP systolic 95–126; BP diastolic 45–76; PULSE 11–130; RESP 12–20; TEMP 36.4–37.4; O2SAT 95–100
[2021-01-13 00:50] LABS: Glucose Point of Care 382 mg/dL (70-110)
[2021-01-13 01:14] LABS: Blood Urea Nitrogen 24 mg/dL (6-20); Calcium 8.3 mg/dL (8.5-10.5); Chloride 98 mmol/L (98-107); Glomerular Filtration Rate 66.8 mL/min (90-130); Glucose 410 mg/dL (65-115); Osmolality Calculated 303 mOsm/kg (285-295); Sodium 136 mmol/L (136-145)
[2021-01-13 01:15] LABS: Anion Gap 35.2 (5-19); Potassium 4.2 mmol/L (3.5-5.1)
[2021-01-13 01:16] LABS: Carbon Dioxide 7 mmol/L (22-29)
[2021-01-13 01:25] LABS: Glucose Point of Care 398 mg/dL (70-110)
[2021-01-13] MEDS: sodium chloride 0.9% 1,000 ML 75 ML IV (01:26)
--- NOTE | 2021-01-13 01:49 | PC.NURSE ---
pt line good at this time
[2021-01-13 01:56] LABS: Glucose Point of Care 330 mg/dL (70-110)
[2021-01-13 01:57] LABS: Arterial Blood Gas Hematocrit 38.1 % (37-47); Base Excess ABG -20.9 mmol/L (-2.0-2.0); Blood Gas Allen Test Pos; Blood Gas Sample Site Radial, left; Blood Gas Sample Type Arterial; HCO3 ABG 6.1 mmol/L (22-26); Oxygen Device ROOM AIR
[2021-01-13 01:58] LABS: ABG PH Result 7.14 (7.35-7.45)
--- NOTE | 2021-01-13 02:00 | PC.NURSE ---
this is a series
[2021-01-13 02:23] LABS: Glucose Point of Care 326 mg/dL (70-110)
[2021-01-13 02:34] LABS: Glucose Point of Care 405 mg/dL (70-110)
--- NOTE | 2021-01-13 02:39 | PC.NURSE ---
verbal order to increase sodium chloride 0.9% to 125 mL/hr.
[2021-01-13] MEDS: cefTRIAXone 1,000 MG in sodium chloride 0.9% (plus) 50 ML 100 MG IV (03:14)
[2021-01-13] MEDS: cetylpyridinium Lozenge 1 EACH MUCOUS MEM (03:14)
[2021-01-13] MEDS: insulin regular-human 100 units/1 mL 10 UNIT IVP (03:17)
--- NOTE | 2021-01-13 03:21 | PC.NURSE ---
fluids and insulin going in left forearm. antibiotic going in right arm
[2021-01-13 03:30] LABS: Lipase 12 U/L (13-60)
--- NOTE | 2021-01-13 04:10 | PC.NURSE ---
received verbal order from Dr. Chavez to titrate insulin drip to 4 units/hr
[2021-01-13 04:19] LABS: Estmated Average Glucose 309; Hemoglobin A1C 12.4 % (4.0-6.0)
[2021-01-13] MEDS: ondansetron 2 mg/ML SDV 2 mL 4 MG IVP ×2 (04:24→13:54)
[2021-01-13 04:25] LABS: Alanine Aminotransferase 39 U/L (0-33); Albumin Level 3.8 g/dL (3.5-5.2); Alkaline Phosphatase 79 IU/L (35-105); Anion Gap 28.6 (5-19); Aspartate Amino Transferase 18 U/L (0-32); Blood Urea Nitrogen 22 mg/dL (6-20); Calcium 8.1 mg/dL (8.5-10.5); Carbon Dioxide 10 mmol/L (22-29); Chloride 102 mmol/L (98-107); Globulin 2.7 g/dL (1.3-4.6); Glomerular Filtration Rate 66.8 mL/min (90-130); Glucose 247 mg/dL (65-115); Osmolality Calculated 296 mOsm/kg (285-295); Potassium 3.6 mmol/L (3.5-5.1); Sodium 137 mmol/L (136-145); Total Bilirubin 0.2 mg/dL (0.15-1.2); Total Protein 6.5 g/dL (6.6-8.7)
[2021-01-13] MEDS: dextrose 5%-sod chloride 0.9% 1,000 ML 100 ML IV (04:30)
[2021-01-13 05:06] LABS: Glucose Point of Care 228 mg/dL (70-110)
[2021-01-13 05:06] LABS: Glucose Point of Care 202 mg/dL (70-110)
[2021-01-13 06:05] LABS: Glucose Point of Care 197 mg/dL (70-110)
[2021-01-13] MEDS: metoclopramide 5 mg/mL SDV 2 mL IVP (06:31)
[2021-01-13] MEDS: lidocaine 1% 5 ML in potassium chloride premix 100 ML 25 ML IV (06:47)
--- NOTE | 2021-01-13 07:03 | PC.NURSE ---
Received report assumed care. No changes noted from report. Resting with lights dimmed. Fluids and meds infusing, BS- 191. Continue to monitor.
[2021-01-13 07:06] LABS: Glucose Point of Care 191 mg/dL (70-110)
[2021-01-13 07:18] LABS: Alanine Aminotransferase 37 U/L (0-33); Albumin Level 3.8 g/dL (3.5-5.2); Alkaline Phosphatase 70 IU/L (35-105); Aspartate Amino Transferase 17 U/L (0-32); Blood Urea Nitrogen 22 mg/dL (6-20); Calcium 8.4 mg/dL (8.5-10.5); Carbon Dioxide 15 mmol/L (22-29); Chloride 106 mmol/L (98-107); Globulin 2.6 g/dL (1.3-4.6); Glomerular Filtration Rate 76.6 mL/min (90-130); Glucose 210 mg/dL (65-115); Osmolality Calculated 294 mOsm/kg (285-295); Sodium 137 mmol/L (136-145); Total Bilirubin 0.2 mg/dL (0.15-1.2); Total Protein 6.4 g/dL (6.6-8.7)
[2021-01-13 08:02] LABS: Glucose Point of Care 199 mg/dL (70-110)
--- NOTE | 2021-01-13 08:43 | PC.NURSE ---
Lights off, fluids and meds infusing. NO acute distress
[2021-01-13] MEDS: gabapentin 100 mg Capsule PO ×2 (08:59→17:42)
[2021-01-13] MEDS: pantoprazole DR 40 mg Tablet PO (08:59)
[2021-01-13 09:02] LABS: Glucose Point of Care 183 mg/dL (70-110)
[2021-01-13 09:42] LABS: Alanine Aminotransferase 38 U/L (0-33); Albumin Level 3.9 g/dL (3.5-5.2); Alkaline Phosphatase 71 IU/L (35-105); Aspartate Amino Transferase 18 U/L (0-32); Blood Urea Nitrogen 22 mg/dL (6-20); Calcium 8.3 mg/dL (8.5-10.5); Carbon Dioxide 14 mmol/L (22-29); Chloride 107 mmol/L (98-107); Chol HDL Ratio 3.31 mg/dL (0.0-4.40); Cholesterol 149 mg/dL (0-200); Globulin 2.6 g/dL (1.3-4.6); Glomerular Filtration Rate 76.6 mL/min (90-130); Glucose 212 mg/dL (65-115); HDL Cholesterol 45 mg/dL (60-100); LDL Cholesterol Calculated 83 mg/dL (50-129); Osmolality Calculated 298 mOsm/kg (285-295); Sodium 139 mmol/L (136-145); Total Bilirubin 0.2 mg/dL (0.15-1.2); Total Protein 6.5 g/dL (6.6-8.7); Triglycerides 106 mg/dL (0-150); VLDL Cholestrol Calculation 21 mg/dL (0-30)
[2021-01-13 10:05] LABS: Glucose Point of Care 206 mg/dL (70-110)
[2021-01-13 10:43] LABS: Anion Gap 16.8 (5-19); Blood Urea Nitrogen 21 mg/dL (6-20); Calcium 8.1 mg/dL (8.5-10.5); Carbon Dioxide 18 mmol/L (22-29); Chloride 108 mmol/L (98-107); Glomerular Filtration Rate 89.3 mL/min (90-130); Glucose 199 mg/dL (65-115); Osmolality Calculated 295 mOsm/kg (285-295); Potassium 4.8 mmol/L (3.5-5.1); Sodium 138 mmol/L (136-145)
[2021-01-13] MEDS: insulin glargine 100 units/1 mL 40 UNIT SUBCUT (12:00)
[2021-01-13 12:04] LABS: Glucose Point of Care 170 mg/dL (70-110)
[2021-01-13 16:59] LABS: Glucose Point of Care 118 mg/dL (70-110)
[2021-01-13 17:19] LABS: Anion Gap 13.7 (5-19); Blood Urea Nitrogen 18 mg/dL (6-20); Calcium 8.4 mg/dL (8.5-10.5); Carbon Dioxide 19 mmol/L (22-29); Chloride 110 mmol/L (98-107); Glomerular Filtration Rate 89.3 mL/min (90-130); Glucose 127 mg/dL (65-115); Osmolality Calculated 291 mOsm/kg (285-295); Potassium 3.7 mmol/L (3.5-5.1); Sodium 139 mmol/L (136-145)
--- NOTE | 2021-01-13 18:19 | PM.DCS ---
Discharge Providers Date of Admission: 01/13/21 02:22 Date of Discharge: January 13, 2021 Attending Provider at Admission: Alba Chavez MD Attending Provider at Discharge: Thom Romo MD Diagnoses at Discharge Discharge Diagnosis (1) DKA (diabetic ketoacidoses): Status: Acute Qualifiers: Diabetes mellitus complication detail: without coma Diabetes mellitus type: type 1 Qualified Code(s): E10.10 - Type 1 diabetes mellitus with ketoacidosis without coma (2) Type 1 diabetes: Status: Acute (3) Cellulitis: Status: Acute Reason for Visit Reason for Visit: DIARRHEA/WEAKNESS/BURNING IN CHEST Hospital Course Hospital Course Latosha Hammonds is a 50 year old female with type 1 DM, recently switched to insulin pump, unclear if being used correctly or adequate insulin being delivered. Presenting today with weakness, nausea, vomiting and burning sensation in chest. Labs consistent with DKA with blood suhar ~400, metabolic acidosis, + serum ketones and increased anion gap. She has a right great toe cellulitis currently from cutting around her nail. Has chronic diarrhea, increased frequency over the last 2 months, currently at >3-4 episodes per day for several days of the week. She was found to be in DKA with Ph of 7.14 and Co2 of 9. She was started on insulin drip as per DKA protocol. She responded well to the treatment and her gap closed by next morning. A1c was found to be more than 12. She is being discharged in hemodynamically stable condition with following advices. She was found to have cellulitis in her great right toe for which she was started on PO Augmnetin for next 5 days and follow up with Dr. Aguero in next 2 weeks. Osteomyelitis was ruled out. Follow up with your PCP in 7 days. Follow up with Dr. Aleman in 1 month. Take 40 units glargine daily in AM, novolog 20 units premeals. Check BS 1 hr after meal and take insulin as per slifing scale. Follow up with podiatry/Dr. Aguero in 2 weeks. Physical Exam Narrative: EXAM NARRATIVE: General: No acute distress, AO x3 HEENT: PERRLA, pupils bilaterally equal and reactive, pallors not present Chest: Normal vesicular breath sounds, no added sounds, equal good air entry bilaterally CVS: S1-S2 regular, no murmurs, no tachycardia, no gallops, no rubs Abdomen: Soft, nontender, no organomegaly, bowel sounds present Neuro: No focal deficits, no facial deformity, AO x3, power 5/5 in all limbs Extremities: small area of cellulitis around medial great toe R side Discharge Data Data Completed and Pending: Completed Studies During Hospitalization Category Date Time Status XR toe RT min 2V [id number] Urgent Exams 01/12/21 13:24 Completed Labs from last 24 hours 01/13/21 01/13/21 01/13/21 16:43 16:40 12:00 Specimen Type Sample Site ABG pH ABG pCO2 ABG pO2 ABG HCO3 ABG Base Excess Genaro Test Hematocrit O2 Delivery Device Pattern And Chain Maker ID Sodium 139 Potassium 3.7 Chloride 110 H Carbon Dioxide 19 L Anion Gap 13.7 BUN 18 Creatinine 0.7 GFR Calculation 89.3 L Glucose 127 H POC Glucose 118 H 170 H Estimat Average Gl ucose Hemoglobin A1c Calculated Osmolal ity 291 Calcium 8.4 L Total Bilirubin AST ALT Alkaline Phosphata se Troponin T Hi Sens 6Hr Troponin T Hi Sens 6Hr Delta Total Protein Albumin Globulin Triglycerides Cholesterol LDL Cholesterol, C alc Total VLDL Cholest mihai HDL Cholesterol Cholesterol/HDL Ra mary Lipase Urine Color Urine Appearance Urine pH Ur Specific Gravit y Urine Protein Urine Glucose (UA) Urine Ketones Urine Blood Urine Nitrate Urine Bilirubin Urine Urobilinogen Ur Leukocyte Qi ase 01/13/21 01/13/21 01/13/21 10:03 10:02 09:00 Specimen Type Sample Site ABG pH ABG pCO2 ABG pO2 ABG HCO3 ABG Base Excess Genaro Test Hematocrit O2 Delivery Device Pattern And Chain Maker ID Sodium 138 Potassium 4.8 Chloride 108 H Carbon Dioxide 18 L Anion Gap 16.8 BUN 21 H Creatinine 0.7 GFR Calculation 89.3 L Glucose 199 H POC Glucose 206 H 183 H Estimat Average Gl ucose Hemoglobin A1c Calculated Osmolal ity 295 Calcium 8.1 L Total Bilirubin AST ALT Alkaline Phosphata se Troponin T Hi Sens 6Hr Troponin T Hi Sens 6Hr Delta Total Protein Albumin Globulin Triglycerides Cholesterol LDL Cholesterol, C alc Total VLDL Cholest mihai HDL Cholesterol Cholesterol/HDL Ra mary Lipase Urine Color Urine Appearance Urine pH Ur Specific Gravit y Urine Protein Urine Glucose (UA) Urine Ketones Urine Blood Urine Nitrate Urine Bilirubin Urine Urobilinogen Ur Leukocyte Qi ase 01/13/21 01/13/21 01/13/21 07:58 06:59 06:40 Specimen Type Sample Site ABG pH ABG pCO2 ABG pO2 ABG HCO3 ABG Base Excess Genaro Test Hematocrit O2 Delivery Device Pattern And Chain Maker ID Sodium 139 Potassium 4.0 Chloride 107 Carbon Dioxide 14 L Anion Gap 22.0 H BUN 22 H Creatinine 0.8 GFR Calculation 76.6 L Glucose 212 H POC Glucose 199 H 191 H Estimat Average Gl ucose Hemoglobin A1c Calculated Osmolal ity 298 H Calcium 8.3 L Total Bilirubin 0.2 AST 18 ALT 38 H Alkaline Phosphata se 71 Troponin T Hi Sens 6Hr Troponin T Hi Sens 6Hr Delta Total Protein 6.5 L Albumin 3.9 Globulin 2.6 Triglycerides 106 Cholesterol 149 LDL Cholesterol, C alc 83 Total VLDL Cholest mihai 21 HDL Cholesterol 45 L Cholesterol/HDL Ra mary 3.31 Lipase Urine Color Urine Appearance Urine pH Ur Specific Gravit y Urine Protein Urine Glucose (UA) Urine Ketones Urine Blood Urine Nitrate Urine Bilirubin Urine Urobilinogen Ur Leukocyte Qi ase 01/13/21 01/13/21 01/13/21 06:40 06:02 05:03 Specimen Type Sample Site ABG pH ABG pCO2 ABG pO2 ABG HCO3 ABG Base Excess Genaro Test Hematocrit O2 Delivery Device Pattern And Chain Maker ID Sodium 137 Potassium 4.0 Chloride 106 Carbon Dioxide 15 L Anion Gap 20.0 H BUN 22 H Creatinine 0.8 GFR Calculation 76.6 L Glucose 210 H POC Glucose 197 H 202 H Estimat Average Gl ucose Hemoglobin A1c Calculated Osmolal ity 294 Calcium 8.4 L Total Bilirubin 0.2 AST 17 ALT 37 H Alkaline Phosphata se 70 Troponin T Hi Sens 6Hr Troponin T Hi Sens 6Hr Delta Total Protein 6.4 L Albumin 3.8 Globulin 2.6 Triglycerides Cholesterol LDL Cholesterol, C alc Total VLDL Cholest mihai HDL Cholesterol Cholesterol/HDL Ra mary Lipase Urine Color Urine Appearance Urine pH Ur Specific Gravit y Urine Protein Urine Glucose (UA) Urine Ketones Urine Blood Urine Nitrate Urine Bilirubin Urine Urobilinogen Ur Leukocyte Qi ase 01/13/21 01/13/21 01/13/21 03:53 03:51 03:51 Specimen Type Sample Site ABG pH ABG pCO2 ABG pO2 ABG HCO3 ABG Base Excess Genaro Test Hematocrit O2 Delivery Device Pattern And Chain Maker ID Sodium 137 Potassium 3.6 Chloride 102 Carbon Dioxide 10 L Anion Gap 28.6 H BUN 22 H Creatinine 0.9 GFR Calculation 66.8 L Glucose 247 H POC Glucose 228 H Estimat Average Gl ucose 309 Hemoglobin A1c 12.4 H Calculated Osmolal ity 296 H Calcium 8.1 L Total Bilirubin 0.2 AST 18 ALT 39 H Alkaline Phosphata se 79 Troponin T Hi Sens 6Hr Troponin T Hi Sens 6Hr Delta Total Protein 6.5 L D Albumin 3.8 Globulin 2.7 Triglycerides Cholesterol LDL Cholesterol, C alc Total VLDL Cholest mihai HDL Cholesterol Cholesterol/HDL Ra mary Lipase Urine Color Urine Appearance Urine pH Ur Specific Gravit y Urine Protein Urine Glucose (UA) Urine Ketones Urine Blood Urine Nitrate Urine Bilirubin Urine Urobilinogen Ur Leukocyte Qi ase 01/13/21 01/13/21 01/13/21 02:31 02:17 01:53 Specimen Type Sample Site ABG pH ABG pCO2 ABG pO2 ABG HCO3 ABG Base Excess Genaro Test Hematocrit O2 Delivery Device Pattern And Chain Maker ID Sodium Potassium Chloride Carbon Dioxide Anion Gap BUN Creatinine GFR Calculation Glucose POC Glucose 405 H 326 H 330 H Estimat Average Gl ucose Hemoglobin A1c Calculated Osmolal ity Calcium Total Bilirubin AST ALT Alkaline Phosphata se Troponin T Hi Sens 6Hr Troponin T Hi Sens 6Hr Delta Total Protein Albumin Globulin Triglycerides Cholesterol LDL Cholesterol, C alc Total VLDL Cholest mihai HDL Cholesterol Cholesterol/HDL Ra mary Lipase Urine Color Urine Appearance Urine pH Ur Specific Gravit y Urine Protein Urine Glucose (UA) Urine Ketones Urine Blood Urine Nitrate Urine Bilirubin Urine Urobilinogen Ur Leukocyte Qi ase 01/13/21 01/13/21 01/13/21 01:50 01:23 00:45 Specimen Type Arterial Sample Site Radial, left ABG pH 7.14 L* ABG pCO2 18.0 L* ABG pO2 110.0 H ABG HCO3 6.1 L ABG Base Excess -20.9 L Genaro Test Pos Hematocrit 38.1 O2 Delivery Device Room air Pattern And Chain Maker ID [email or web address] Sodium Potassium Chloride Carbon Dioxide Anion Gap BUN Creatinine GFR Calculation Glucose POC Glucose 398 H Estimat Average Gl ucose Hemoglobin A1c Calculated Osmolal ity Calcium Total Bilirubin AST ALT Alkaline Phosphata se Troponin T Hi Sens 6Hr Troponin T Hi Sens 6Hr Delta Total Protein Albumin Globulin Triglycerides Cholesterol LDL Cholesterol, C alc Total VLDL Cholest mihai HDL Cholesterol Cholesterol/HDL Ra mary Lipase 12 L Urine Color Urine Appearance Urine pH Ur Specific Gravit y Urine Protein Urine Glucose (UA) Urine Ketones Urine Blood Urine Nitrate Urine Bilirubin Urine Urobilinogen Ur Leukocyte Qi ase 08/03/2601/13/21 01/12/21 00:45 00:45 23:46 Specimen Type Sample Site ABG pH ABG pCO2 ABG pO2 ABG HCO3 ABG Base Excess Genaro Test Hematocrit O2 Delivery Device Pattern And Chain Maker ID Sodium 136 Potassium 4.2 Chloride 98 Carbon Dioxide 7 L* Anion Gap 35.2 H BUN 24 H Creatinine 0.9 GFR Calculation 66.8 L Glucose 410 H POC Glucose 382 H 452 H Estimat Average Gl ucose Hemoglobin A1c Calculated Osmolal ity 303 H Calcium 8.3 L Total Bilirubin AST ALT Alkaline Phosphata se Troponin T Hi Sens 6Hr Troponin T Hi Sens 6Hr Delta Total Protein Albumin Globulin Triglycerides Cholesterol LDL Cholesterol, C alc Total VLDL Cholest mihai HDL Cholesterol Cholesterol/HDL Ra mary Lipase Urine Color Urine Appearance Urine pH Ur Specific Gravit y Urine Protein Urine Glucose (UA) Urine Ketones Urine Blood Urine Nitrate Urine Bilirubin Urine Urobilinogen Ur Leukocyte Qi ase 01/12/21 01/12/21 01/12/21 22:35 21:38 21:05 Specimen Type Sample Site ABG pH ABG pCO2 ABG pO2 ABG HCO3 ABG Base Excess Genaro Test Hematocrit O2 Delivery Device Pattern And Chain Maker ID Sodium 131 L Potassium 5.1 Chloride 88 L Carbon Dioxide 10 L Anion Gap 38.1 H BUN 22 H Creatinine 0.9 GFR Calculation 66.8 L Glucose 485 H POC Glucose 484 H Estimat Average Gl ucose Hemoglobin A1c Calculated Osmolal ity 297 H Calcium 9.4 Total Bilirubin AST ALT Alkaline Phosphata se Troponin T Hi Sens 6Hr Troponin T Hi Sens 6Hr Delta Total Protein Albumin Globulin Triglycerides Cholesterol LDL Cholesterol, C alc Total VLDL Cholest mihai HDL Cholesterol Cholesterol/HDL Ra mary Lipase Urine Color Yellow Urine Appearance Clear Urine pH 5 Ur Specific Gravit y 1.020 Urine Protein Neg Urine Glucose (UA) 4+ H Urine Ketones 3+ H Urine Blood Neg Urine Nitrate Negative Urine Bilirubin Neg Urine Urobilinogen Norm Ur Leukocyte Qi ase Negative 01/12/21 01/12/21 01/12/21 20:54 20:05 19:55 Specimen Type Arterial Sample Site Radial, left ABG pH 7.18 L* ABG pCO2 21.3 L ABG pO2 113.0 H ABG HCO3 8.0 L ABG Base Excess -18.4 L Genaro Test Pos Hematocrit 43.6 O2 Delivery Device Room air Pattern And Chain Maker ID [email or web address] Sodium Potassium Chloride Carbon Dioxide Anion Gap BUN Creatinine GFR Calculation Glucose POC Glucose 469 H Estimat Average Gl ucose Hemoglobin A1c Calculated Osmolal ity Calcium Total Bilirubin AST ALT Alkaline Phosphata se Troponin T Hi Sens 6Hr 6.95 Troponin T Hi Sens 6Hr Delta -1.05 L Total Protein Albumin Globulin Triglycerides Cholesterol LDL Cholesterol, C alc Total VLDL Cholest mihai HDL Cholesterol Cholesterol/HDL Ra mary Lipase Urine Color Urine Appearance Urine pH Ur Specific Gravit y Urine Protein Urine Glucose (UA) Urine Ketones Urine Blood Urine Nitrate Urine Bilirubin Urine Urobilinogen Ur Leukocyte Qi ase 01/12/21 13:02 Specimen Type Sample Site ABG pH ABG pCO2 ABG pO2 ABG HCO3 ABG Base Excess Genaro Test Hematocrit O2 Delivery Device Pattern And Chain Maker ID Sodium Potassium Chloride Carbon Dioxide Anion Gap BUN Creatinine GFR Calculation Glucose POC Glucose 380 H Estimat Average Gl ucose Hemoglobin A1c Calculated Osmolal ity Calcium Total Bilirubin AST ALT Alkaline Phosphata se Troponin T Hi Sens 6Hr Troponin T Hi Sens 6Hr Delta Total Protein Albumin Globulin Triglycerides Cholesterol LDL Cholesterol, C alc Total VLDL Cholest mihai HDL Cholesterol Cholesterol/HDL Ra mary Lipase Urine Color Urine Appearance Urine pH Ur Specific Gravit y Urine Protein Urine Glucose (UA) Urine Ketones Urine Blood Urine Nitrate Urine Bilirubin Urine Urobilinogen Ur Leukocyte Qi ase Addt'l Data from Hospital Stay: Laboratory Results WBC 10.4 10^3/uL (4.0 -10.0) H 01/12/21 13:48 RBC 5.26 10^6/uL (4.1 -5.3) 01/12/21 13:48 Hgb 14.6 g/dL (11.5-1 5.3) 01/12/21 13:48 Hct 45.6 % (37.0-47.0 ) 01/12/21 13:48 MCV 86.7 fL (81-99) 01/12/21 13:48 MCH 27.8 pg (28.0-34. 0) L 01/12/21 13:48 MCHC 32.0 g/dL (30.0-3 6.0) 01/12/21 13:48 RDW 12.9 % (12.1-15.1 ) 01/12/21 13:48 Plt Count 221 10^3/cmm (130 -400) 01/12/21 13:48 MPV 10.1 fL (7.4-10.4 ) 01/12/21 13:48 Neut % (Auto) 84.4 % 01/12/21 13:48 Lymph % (Auto) 10.5 % 01/12/21 13:48 [place] % (Auto) 3.8 % 01/12/21 13:48 Eos % (Auto) 0.3 % 01/12/21 13:48 Baso % (Auto) 0.5 % 01/12/21 13:48 Neut # (Auto) 8.79 10^3/uL (1.8 -7.7) H 01/12/21 13:48 Lymph # (Auto) 1.1 10^3/uL (0.8- 4.8) 01/12/21 13:48 [place] # (Auto) 0.4 10^3/uL (0.2- 0.9) 01/12/21 13:48 Eos # (Auto) 0.0 10^3/uL (0.0- 0.8) 01/12/21 13:48 Baso # (Auto) 0.1 10^3/uL (0.0- 0.1) 01/12/21 13:48 Nucleated RBC % (a uto) 0 % 01/12/21 13:48 Nucleated RBCs # 0.0 /100WBC 01/12/21 13:48 Specimen Type Arterial 01/13/21 01:50 Sample Site Radial, left 01/13/21 01:50 ABG pH 7.14 (7.35-7.45) L* 01/13/21 01:50 ABG pCO2 18.0 mmHg (35-45) L* 01/13/21 01:50 ABG pO2 110.0 mmHg (80.0- 100.0) H 01/13/21 01:50 ABG HCO3 6.1 mmol/L (22-26 ) L 01/13/21 01:50 ABG Base Excess -20.9 mmol/L (-2. 0-2.0) L 01/13/21 01:50 Genaro Test Pos 01/13/21 01:50 Hematocrit 38.1 % (37-47) 01/13/21 01:50 O2 Delivery Device Room air 01/13/21 01:50 Pattern And Chain Maker ID ellpe 01/13/21 01:50 Sodium 139 mmol/L (136-1 45) 01/13/21 16:40 Potassium 3.7 mmol/L (3.5-5 .1) 01/13/21 16:40 Chloride 110 mmol/L (98-10 7) H 01/13/21 16:40 Carbon Dioxide 19 mmol/L (22-29) L 01/13/21 16:40 Anion Gap 13.7 (5-19) 01/13/21 16:40 BUN 18 mg/dL (6-20) 01/13/21 16:40 Creatinine 0.7 mg/dL (0.5-0. 9) 01/13/21 16:40 GFR Calculation 89.3 mL/min (90-1 30) L 01/13/21 16:40 Glucose 127 mg/dL (65-115 ) H 01/13/21 16:40 POC Glucose 118 mg/dL (70-110 ) H 01/13/21 16:43 Estimat Average Gl ucose 309 01/13/21 03:51 Hemoglobin A1c 12.4 % (4.0-6.0) H 01/13/21 03:51 Calculated Osmolal ity 291 mOsm/kg (285- 295) 01/13/21 16:40 Lactic Acid 1.7 mmol/L (0.5-2 .2) 01/12/21 17:20 Calcium 8.4 mg/dL (8.5-10 .5) L 01/13/21 16:40 Total Bilirubin 0.2 mg/dL (0.15-1 .2) 01/13/21 06:40 Total Bilirubin 0.2 mg/dL (0.15-1 .2) 01/13/21 06:40 AST 17 U/L (0-32) 01/13/21 06:40 AST 18 U/L (0-32) 01/13/21 06:40 ALT 37 U/L (0-33) H 01/13/21 06:40 ALT 38 U/L (0-33) H 01/13/21 06:40 Alkaline Phosphata se 70 IU/L (35-105) 01/13/21 06:40 Alkaline Phosphata se 71 IU/L (35-105) 01/13/21 06:40 Troponin T Baselin e 8 ng/L (0-10) 01/12/21 13:48 Troponin T 120 Min [place] 8.50 ng/L (0-10) 01/12/21 17:20 Delta Troponin T 0.50 ABS# (0-10) 01/12/21 17:20 Troponin T Hi Sens 6Hr 6.95 ng/L (0-10) 01/12/21 20:05 Troponin T Hi Sens 6Hr Delta -1.05 ng/L (0-12) L 01/12/21 20:05 C-Reactive Protein 12.7 mg/L (0.0-4. 9) H 01/12/21 13:48 Total Protein 6.4 g/dL (6.6-8.7 ) L 01/13/21 06:40 Total Protein 6.5 g/dL (6.6-8.7 ) L 01/13/21 06:40 Albumin 3.8 g/dL (3.5-5.2 ) 01/13/21 06:40 Albumin 3.9 g/dL (3.5-5.2 ) 01/13/21 06:40 Globulin 2.6 g/dL (1.3-4.6 ) 01/13/21 06:40 Globulin 2.6 g/dL (1.3-4.6 ) 01/13/21 06:40 Triglycerides 106 mg/dL (0-150) 01/13/21 06:40 Cholesterol 149 mg/dL (0-200) 01/13/21 06:40 LDL Cholesterol, C alc 83 mg/dL (50-129) 01/13/21 06:40 Total VLDL Cholest mihai 21 mg/dL (0-30) 01/13/21 06:40 HDL Cholesterol 45 mg/dL (60-100) L 01/13/21 06:40 Cholesterol/HDL Ra mary 3.31 mg/dL (0.0-4 .40) 01/13/21 06:40 Lipase 12 U/L (13-60) L 01/13/21 00:45 Urine Color Yellow (Yellow) 01/12/21 21:38 Urine Appearance Clear (CLEAR) 01/12/21 21:38 Urine pH 5 (5-7) 01/12/21 21:38 Ur Specific Gravit y 1.020 (1.005-1.0 30) 01/12/21 21:38 Urine Protein Neg (Negative) 01/12/21 21:38 Urine Glucose (UA) 4+ (Normal) H 01/12/21 21:38 Urine Ketones 3+ (Negative) H 01/12/21 21:38 Urine Blood Neg (Negative) 01/12/21 21:38 Urine Nitrate Negative (Negati ve) 01/12/21 21:38 Urine Bilirubin Neg (Negative) 01/12/21 21:38 Urine Urobilinogen Norm mg/dL (Negat gato) 01/12/21 21:38 Ur Leukocyte Qi ase Negative (Negati ve) 01/12/21 21:38 Serum Ketones Positive (Negati ve) H 01/12/21 13:48 Impressions Toe X-Ray 01/12/21 13:24 IMPRESSION: No radiographic evidence for osteomyelitis. Vitals: Last Vital Signs Temp 97.5 F L 01/13/21 16:00 Pulse 95 01/13/21 16:00 Resp 16 01/13/21 16:00 BP 112/68 01/13/21 16:00 Pulse Ox 100 01/13/21 16:00 Discharge Plan Discharge Patient Disposition: Home Condition: Stable Prescriptions: New Novolog Flexpen U-100 Insulin 100 unit/mL (3 mL) insulin pen 20 unit SUBCUT TID Qty: 15 RF: 0 Novolog Flexpen U-100 Insulin 100 unit/mL (3 mL) insulin pen See Protocol unit SUBCUT TID Qty: 3 RF: 0 Augmentin 500-125 mg tablet 1 tab PO BID 5 Days Qty: 10 RF: 0 Zofran 4 mg tablet 4 mg PO Q8H PRN (Reason: nausea and vomiting) 4 Days Qty: 10 RF: 0 ondansetron 8 mg tablet,disintegrating 8 mg PO Q12H 5 Days Qty: 10 RF: 0 Continued gabapentin 100 mg capsule 100 mg PO BID 90 Days Qty: 180 RF: 3 Changed Toujeo SoloStar U-300 Insulin 300 unit/mL (1.5 mL) insulin pen 42 unit SUBCUT QAM 90 Days Qty: 12.6 RF: 3 Discontinued insulin aspart U-100 [Novolog Flexpen U-100 Insulin] 100 unit/mL (3 mL) insulin pen 15 unit SUBCUT TID Qty: 15 RF: 3 No Action (DME) Dexcom G6 Sensor Device See Rx Instructions .ROUTE .MEDSUPPLY Qty: 9 RF: 3 (DME) Dexcom G6 Transmitter Device See Rx Instructions .ROUTE .MEDSUPPLY Qty: 3 RF: 3 (DME) Dexcom G6 Airport Representative Misc See Rx Instructions .Route Qty: 1 RF: 3 Discharge Orders: Discharge Order (Routine); Ordered 01/13/21 Ordered By: Thom Romo Referrals: Chaparro Aguero DPM [Physician] - 1 month (please call Dr Office tomorrow [phone] and make followup appointment for 1 month.) Jesus Aleman MD [Physician] - 2 weeks (DKA, insulin pump Please call office at [phone] tomorrow to make appointment for 2 week followup.) Discharge Diet: Diabetic Discharge Activity: Resume usual activity and Increase activity as tolerated Patient Instructions: Amoxicillin/Clavulanate Potassium (By mouth), Ondansetron (Injection), Insulin Aspart Protamine/Insulin Aspart (Injection), Diabetic Ketoacidosis (DC), Opioid Safety Activity Restrictions/Additional Instructions: Follow up with your PCP in 7 days. Follow up with Dr. Aelman in 1 month. Take 40 units glargine daily in AM, novolog 20 units premeals. Check BS 1 hr after meal and take insulin as per slifing scale. Follow up with podiatry/Dr. Aguero in 2 weeks. Discharge Attestations Time Spent in Discharge Care*: greater than 30 min Specific Discharge Activities: educating patient, educating and/or supporting family/caregiver, discussing with director of casework/social workers/dc planners, documenting/other paperwork and evaluating patient/reviewing data Status at Discharge: Cognitive status at discharge: cognitively intact, Behavioral status at discharge: cooperative, Functional status at discharge: independent ambulation Overall status at discharge: patient is back to baseline Quality Metrics Clinical Quality Measures During this hospital stay, did patient experience: None Coding Level of Care Code Acute Chg FW DC note Diagnoses DKA (diabetic ketoacidoses) E10.10 Diabetes mellitus complication detail: without coma Diabetes mellitus type: type 1 Type 1 diabetes E10.9 Cellulitis L03.90
--- NOTE | 2021-01-13 18:39 | PC.NURSE ---
patient given discharge instructions and patient verbalized understanding. IVs discontinued and covered with 2x2 and coban. patient taken to private vehicle via wheelchair by staff.
== END 2021-01-13 18:47 | disposition home or self-care (01) | DRG 639 ==
LOC: ER 01-13 02:07 → ER IP 01-13 06:33 → MEDSURG 01-13 11:51
PROVIDERS: Physician Assistant; Admitting Provider Student in an Organized Health Care Education/Training Program; Emergency Provider Emergency Medicine; Visit Provider Student in an Organized Health Care Education/Training Program
DX: E10.10 Type 1 diabetes mellitus with ketoacidosis without coma (principal); L03.031 Cellulitis of right toe; K52.9 Noninfective gastroenteritis and colitis, unspecified; Z96.41 Presence of insulin pump (external) (internal); Z90.49 Acquired absence of other specified parts of digestive tract; Z86.16 Personal history of COVID-19; Z90.710 Acquired absence of both cervix and uterus; Z88.8 Allergy status to other drugs, medicaments and biological substances
CPT/HCPCS: 36415; 36416; 36600; 73660; 80048; 80053; 80061; 81003; 82009; 82803; 82962; 83036; 83605; 83690; 84484; 85025; 86140; 93005; 96365; 96366; 96367; 96372; 96375; 99285; J0696; J1650; J1815 ×2; J2405; J2765; J3480; J7030; J7050

== ENCOUNTER → 2021-03-27 11:03 | Outpatient (BNVA) | payer OTHER, SELFPAY | PROVIDERS: Visit Provider Internal Medicine | DX: E10.649 Type 1 diabetes mellitus with hypoglycemia without coma (principal); E10.40 Type 1 diabetes mellitus with diabetic neuropathy, unspecified; E10.21 Type 1 diabetes mellitus with diabetic nephropathy; E78.5 Hyperlipidemia, unspecified; Z79.4 Long term (current) use of insulin | CPT/HCPCS: 99215 ==

== ENCOUNTER → 2021-04-20 09:00 | Outpatient (BNVA) | payer OTHER, SELFPAY | PROVIDERS: Visit Provider Internal Medicine | DX: E10.649 Type 1 diabetes mellitus with hypoglycemia without coma (principal); E10.21 Type 1 diabetes mellitus with diabetic nephropathy; E10.40 Type 1 diabetes mellitus with diabetic neuropathy, unspecified; E78.5 Hyperlipidemia, unspecified; Z79.4 Long term (current) use of insulin; E10.65 Type 1 diabetes mellitus with hyperglycemia | CPT/HCPCS: 99213 ==

== ENCOUNTER 2021-10-09 22:25 | Emergency (ER) | payer OTHER, SELFPAY ==
[2021-10-09 22:33] VITALS: BP 125/81; PULSE 100; RESP 18; TEMP 36.6; O2SAT 98; BMI 29.5
--- NOTE | 2021-10-09 23:45 | ED_ITS ---
Documented by User: MG Rosario 10/10/21 02:02 HPI - Nausea/Vomiting/Diarrhea General: Chief complaint: Nausea/Vomiting/Diarrhea Stated complaint: N/V Time Seen by Provider: 10/09/21 23:45 History of Present Illness: 50-year-old female comes in today with complaints of nausea vomiting. Patient states that she woke up, nauseous but did not start throwing up until about 1130. Since then she has not been able to eat or hold any liquids down. Patient appears mildly unwell. Patient does have a history of type 1 diabetes and diabetic ketoacidosis. Patient's insulin pump with glucose monitoring notes a 180 test result. Patient reports no instances above 200. She denies any fever. Patient denies any significant abdominal pain. Patient appears nontoxic. Patient appears in no pain. Associated nausea: Yes Associated symtoms: Reports nausea; Denies chest pain Review of Systems General: Reports: 10 or more systems reviewed and unremarkable except in HPI and below Const: Denies: fever(s) ENMT: Denies: throat pain Card: Denies: chest pain Resp: Denies: dyspnea GI: Reports: nausea and vomiting; Denies: abdominal pain, diarrhea or constipation : Denies: difficulty voiding Skin/Breast: Denies: rash All/Imm: Denies: urticaria PFSH ED PFSH: Medical History COVID-24 Jun 2020 FH: cholecystectomy Surgical History History of partial hysterectomy Family History Father Stroke Mother Diabetes Social History Second hand smoke exposure: No Smoking risk assessment/counseling performed?: No Alcohol intake: never Desire information about alcohol rehabilitation?: No Counseling given: No Desire information about substance/drug rehabilitation?: No Counseling given: No Adopted: No Caregiver/support person: No Lives independently: Yes Household members: spouse Housing: House Marital status: Number of children: 3 Highest education level completed: Associate Degree: Occupational, Technical, Vocational Program service: No Current occupational status: employed Pets and animals: Yes History of recent travel: No Sexually active: Yes Current gender identity: Female Physical Exam Const: COMMON NORMALS: alert HENMT: COMMON NORMALS: normocephalic HEAD & SCALP: normocephalic Neck/C-Spine: COMMON NORMALS: full ROM and no meningeal signs Resp: COMMON NORMALS: normal respiratory effort and clear to auscultation bilaterally AUSCULTATION: clear to auscultation bilaterally Cardio: COMMON NORMALS: regular rate and regular rhythm RATE: regular rate RHYTHM: regular rhythm GI: COMMON NORMALS: Soft to palpation and non-tender PALPATION: Yes Soft to palpation Extremity: COMMON NORMALS: normal to inspection Neuro: SENSORIUM/ORIENTATION: Yes alert MENINGEAL SIGNS: Yes no meningeal signs Skin: COMMON NORMALS: no rashes or lesions noted GENERAL SKIN EXAM: no rashes or lesions noted Course Vital Signs: Vital signs: Vital Signs Temperature 98 F 10/09/21 22:33 Pulse Rate 100 10/09/21 22:33 Respiratory Rate 18 10/09/21 22:33 Blood Pressure 137/68 10/10/21 00:25 Pulse Oximetry 100 10/10/21 00:25 MDM - Nausea/Vomiting/Diarrhea Medical Decision Making 50-year-old female comes in today with persistent nausea and vomiting throughout the day. Patient denies any diarrhea. On exam abdomen soft nontender. Bowel sounds were normoactive. Skin was warm and dry. Oral mucosa was moist. Patient does have type 1 diabetes. Vital signs are normal. Differential diagnosis includes but not limited to gastroparesis, diabetic ketoacidosis, gastritis, gastroenteritis, pancreatitis. Laboratory values were unremarkable. Patient was treated with IV fluids and antiemetics. Patient felt improved and was released to home with Zofran. Patient was recommended to follow-up with primary care for further instruction or return to the ER for worsening symptoms or new concerns. Lab Data : 10/10/21 00:15 10/10/21 00:15 Laboratory Results WBC 10.5 10^3/uL (4.0-10.0) H 10/10/21 00:15 RBC 5.30 10^6/uL (4.1-5.3) 10/10/21 00:15 Hgb 14.3 g/dL (11.5-15.3) 10/10/21 00:15 Hct 44.3 % (37.0-47.0) 10/10/21 00:15 MCV 83.6 fl (81-99) 10/10/21 00:15 MCH 27.0 pg (28.0-34.0) L 10/10/21 00:15 MCHC 32.3 g/dL (30.0-36.0) 10/10/21 00:15 RDW 13.7 % (12.1-15.1) 10/10/21 00:15 Plt Count 255 10^3/cmm (130-400) 10/10/21 00:15 MPV 9.5 fL (7.4-10.4) 10/10/21 00:15 Neut % (Auto) 85.8 % 10/10/21 00:15 Lymph % (Auto) 9.0 % 10/10/21 00:15 Angelina % (Auto) 4.3 % 10/10/21 00:15 Eos % (Auto) 0.3 % 10/10/21 00:15 Baso % (Auto) 0.2 % 10/10/21 00:15 Neut # (Auto) 9.01 10^3/uL (1.8-7.7) H 10/10/21 00:15 Lymph # (Auto) 0.9 10^3/uL (0.8-4.8) 10/10/21 00:15 Angelina # (Auto) 0.5 10^3/uL (0.2-0.9) 10/10/21 00:15 Eos # (Auto) 0.0 10^3/uL (0.0-0.8) 10/10/21 00:15 Baso # (Auto) 0.0 10^3/uL (0.0-0.1) 10/10/21 00:15 Nucleated RBC % (auto) 0 % 10/10/21 00:15 Nucleated RBCs # 0.0 /100WBC 10/10/21 00:15 Specimen Type Arterial 10/09/21 00:17 Sample Site Radial, left 10/09/21 00:17 ABG pH 7.41 (7.35-7.45) 10/09/21 00:17 ABG pCO2 43.3 mmHg (35-45) 10/09/21 00:17 ABG pO2 76.7 mmHg (80.0-100.0) L 10/09/21 00:17 ABG HCO3 27.3 mmol/L (22-26) H 10/09/21 00:17 ABG Base Excess 2.2 mmol/L (-2.0-2.0) H 10/09/21 00:17 Genaro Test Pos 10/09/21 00:17 Hematocrit 42.1 % (37-47) 10/09/21 00:17 O2 Delivery Device Room air 10/09/21 00:17 Photography Teacher ID Buttr 10/09/21 00:17 Sodium 135 mmol/L (136-145) L 10/10/21 00:15 Potassium 3.8 mmol/L (3.5-5.1) 10/10/21 00:15 Chloride 96 mmol/L (98-107) L 10/10/21 00:15 Carbon Dioxide 28 mmol/L (22-29) 10/10/21 00:15 Anion Gap 14.8 (5-19) 10/10/21 00:15 BUN 16 mg/dL (6-20) 10/10/21 00:15 Creatinine 0.5 mg/dL (0.5-0.9) 10/10/21 00:15 GFR Calculation 131.7 mL/min (90-130) H 10/10/21 00:15 Glucose 193 mg/dL (65-115) H 10/10/21 00:15 Calculated Osmolality 286 mOsm/kg (285-295) 10/10/21 00:15 Calcium 10.2 mg/dL (8.5-10.5) 10/10/21 00:15 Total Bilirubin 0.5 mg/dL (0.15-1.2) 10/10/21 00:15 AST 15 U/L (0-32) 10/10/21 00:15 ALT 22 U/L (0-33) 10/10/21 00:15 Alkaline Phosphatase 79 IU/L (35-105) 10/10/21 00:15 Total Protein 7.5 g/dL (6.6-8.7) 10/10/21 00:15 Albumin 4.6 g/dL (3.5-5.2) 10/10/21 00:15 Globulin 2.9 g/dL (1.3-4.6) 10/10/21 00:15 Lipase 9 U/L (13-60) L 10/10/21 00:15 HCG, Qual Negative (Negative) 10/10/21 01:00 Urine Color Yellow (Yellow) 10/10/21 00:50 Urine Appearance Clear (CLEAR) 10/10/21 00:50 Urine pH 5 (5-7) 10/10/21 00:50 Ur Specific Monette 1.015 (1.005-1.030) 10/10/21 00:50 Urine Protein Neg (Negative) 10/10/21 00:50 Urine Glucose (UA) Norm (Normal) 10/10/21 00:50 Urine Ketones 1+ (Negative) H 10/10/21 00:50 Urine Blood Neg (Negative) 10/10/21 00:50 Urine Nitrate Negative (Negative) 10/10/21 00:50 Urine Bilirubin Neg (Negative) 10/10/21 00:50 Urine Urobilinogen Norm mg/dL (Negative) 10/10/21 00:50 Ur Leukocyte Esterase Negative (Negative) 10/10/21 00:50 Serum Ketones Negative (Negative) 10/10/21 01:00 Discharge Plan Discharge Patient Disposition: Home Clinical Impression: Nausea & vomiting Qualifiers: Vomiting type: unspecified Qualified Code(s): R11.2 - Nausea with vomiting, unspecified Headache Qualifiers: Headache type: unspecified Headache chronicity pattern: acute headache Intractability: not intractable Qualified Code(s): R51.9 - Headache, unspecified Diabetes mellitus Qualifiers: Diabetes mellitus type: type 1 Diabetes mellitus complication status: with other specified complication Qualified Code(s): E10.69 - Type 1 diabetes mellitus with other specified complication Condition: Stable Prescriptions: New ondansetron 4 mg tablet,disintegrating 4 mg PO Q8H PRN (Reason: nausea and vomiting) Qty: 10 0RF No Action (DME) Dexcom G6 Transmitter Device See Rx Instructions .ROUTE .MEDSUPPLY Qty: 3 3RF Rx Instructions: use every 90 days (DME) Dexcom G6 Sensor Device See Rx Instructions .ROUTE .MEDSUPPLY Qty: 3 3RF Rx Instructions: As directed gabapentin 300 mg capsule 300 mg PO .at bed Qty: 90 3RF Rx Instructions: take 1 capsule daily at bedtime. Touerik SoloStar U-300 Insulin 300 unit/mL (1.5 mL) insulin pen 42 unit SUBCUT QAM 90 Days Qty: 12.6 3RF terbinafine HCl 250 mg tablet 250 mg PO DAILY 90 Days Qty: 30 2RF (DME) Dexcom G6 Caustic Cresylate Shift Superintendent Misc See Rx Instructions .Route Qty: 1 3RF Rx Instructions: check blood sugar insulin lispro [Humalog U-100 Insulin] 100 unit/mL solution See Rx Instructions SUBCUT .COMPLEX Qty: 140 3RF Rx Instructions: SUBCUT; Max dose is 150 units per day. Via pump. Discharge Orders: Discharge ED (Routine); Ordered 10/10/21 Ordered By: Obey Aguilar Discharge Diet: Advance as tolerated Discharge Activity: Increase activity as tolerated Patient Instructions: Acute Nausea and Vomiting (ED) Activity Restrictions/Additional Instructions: Home and rest. Continue with routine care. Drinks frequent sips of fluid to maintain hydration. Use ondansetron tablets as needed for nausea. Monitor blood sugar. Follow-up with primary care as needed. Return to ER for high fever, blood in vomit or stool, or new concerns. Coding Level of Care Code ED Printed Circuit Board Preassembler for Chg Fwd Exam Comprehensive Documented by User: Kofi Noble DO 10/10/21 15:58 HPI - Nausea/Vomiting/Diarrhea General: Chief complaint: Nausea/Vomiting/Diarrhea Stated complaint: N/V Time Seen by Provider: 10/09/21 23:45 PFSH ED PFSH: Medical History COVID-24 Jun 2020 FH: cholecystectomy Surgical History History of partial hysterectomy Family History Father Stroke Mother Diabetes Social History Second hand smoke exposure: No Smoking risk assessment/counseling performed?: No Alcohol intake: never Desire information about alcohol rehabilitation?: No Counseling given: No Desire information about substance/drug rehabilitation?: No Counseling given: No Adopted: No Caregiver/support person: No Lives independently: Yes Household members: spouse Housing: House Marital status: Number of children: 3 Highest education level completed: Associate Degree: Occupational, Technical, Vocational Program service: No Current occupational status: employed Pets and animals: Yes History of recent travel: No Sexually active: Yes Current gender identity: Female Course Vital Signs: Vital signs: Vital Signs Temperature 98 F 10/09/21 22:33 Pulse Rate 100 10/09/21 22:33 Respiratory Rate 18 10/09/21 22:33 Blood Pressure 137/68 10/10/21 00:25 Pulse Oximetry 100 10/10/21 00:25 MDM - Nausea/Vomiting/Diarrhea Medical Decision Making 50-year-old female comes in today with persistent nausea and vomiting throughout the day. Patient denies any diarrhea. On exam abdomen soft nontender. Bowel sounds were normoactive. Skin was warm and dry. Oral mucosa was moist. Patient does have type 1 diabetes. Vital signs are normal. Differential diagnosis includes but not limited to gastroparesis, diabetic ketoacidosis, gastritis, gastroenteritis, pancreatitis. Laboratory values were unremarkable. Patient was treated with IV fluids and antiemetics. Patient felt improved and was released to home with Zofran. Patient was recommended to follow-up with primary care for further instruction or return to the ER for worsening symptoms or new concerns. This patient was originally seen by MG Lindo. I agree with his history, evaluation, and treatment. Lab Data : 10/10/21 00:15 10/10/21 00:15 Laboratory Results WBC 10.5 10^3/uL (4.0-10.0) H 10/10/21 00:15 RBC 5.30 10^6/uL (4.1-5.3) 10/10/21 00:15 Hgb 14.3 g/dL (11.5-15.3) 10/10/21 00:15 Hct 44.3 % (37.0-47.0) 10/10/21 00:15 MCV 83.6 fl (81-99) 10/10/21 00:15 MCH 27.0 pg (28.0-34.0) L 10/10/21 00:15 MCHC 32.3 g/dL (30.0-36.0) 10/10/21 00:15 RDW 13.7 % (12.1-15.1) 10/10/21 00:15 Plt Count 255 10^3/cmm (130-400) 10/10/21 00:15 MPV 9.5 fL (7.4-10.4) 10/10/21 00:15 Neut % (Auto) 85.8 % 10/10/21 00:15 Lymph % (Auto) 9.0 % 10/10/21 00:15 Angelina % (Auto) 4.3 % 10/10/21 00:15 Eos % (Auto) 0.3 % 10/10/21 00:15 Baso % (Auto) 0.2 % 10/10/21 00:15 Neut # (Auto) 9.01 10^3/uL (1.8-7.7) H 10/10/21 00:15 Lymph # (Auto) 0.9 10^3/uL (0.8-4.8) 10/10/21 00:15 Angelina # (Auto) 0.5 10^3/uL (0.2-0.9) 10/10/21 00:15 Eos # (Auto) 0.0 10^3/uL (0.0-0.8) 10/10/21 00:15 Baso # (Auto) 0.0 10^3/uL (0.0-0.1) 10/10/21 00:15 Nucleated RBC % (auto) 0 % 10/10/21 00:15 Nucleated RBCs # 0.0 /100WBC 10/10/21 00:15 Specimen Type Arterial 10/09/21 00:17 Sample Site Radial, left 10/09/21 00:17 ABG pH 7.41 (7.35-7.45) 10/09/21 00:17 ABG pCO2 43.3 mmHg (35-45) 10/09/21 00:17 ABG pO2 76.7 mmHg (80.0-100.0) L 10/09/21 00:17 ABG HCO3 27.3 mmol/L (22-26) H 10/09/21 00:17 ABG Base Excess 2.2 mmol/L (-2.0-2.0) H 10/09/21 00:17 Genaro Test Pos 10/09/21 00:17 Hematocrit 42.1 % (37-47) 10/09/21 00:17 O2 Delivery Device Room air 10/09/21 00:17 Photography Teacher ID Buttr 10/09/21 00:17 Sodium 135 mmol/L (136-145) L 10/10/21 00:15 Potassium 3.8 mmol/L (3.5-5.1) 10/10/21 00:15 Chloride 96 mmol/L (98-107) L 10/10/21 00:15 Carbon Dioxide 28 mmol/L (22-29) 10/10/21 00:15 Anion Gap 14.8 (5-19) 10/10/21 00:15 BUN 16 mg/dL (6-20) 10/10/21 00:15 Creatinine 0.5 mg/dL (0.5-0.9) 10/10/21 00:15 GFR Calculation 131.7 mL/min (90-130) H 10/10/21 00:15 Glucose 193 mg/dL (65-115) H 10/10/21 00:15 Calculated Osmolality 286 mOsm/kg (285-295) 10/10/21 00:15 Calcium 10.2 mg/dL (8.5-10.5) 10/10/21 00:15 Total Bilirubin 0.5 mg/dL (0.15-1.2) 10/10/21 00:15 AST 15 U/L (0-32) 10/10/21 00:15 ALT 22 U/L (0-33) 10/10/21 00:15 Alkaline Phosphatase 79 IU/L (35-105) 10/10/21 00:15 Total Protein 7.5 g/dL (6.6-8.7) 10/10/21 00:15 Albumin 4.6 g/dL (3.5-5.2) 10/10/21 00:15 Globulin 2.9 g/dL (1.3-4.6) 10/10/21 00:15 Lipase 9 U/L (13-60) L 10/10/21 00:15 HCG, Qual Negative (Negative) 10/10/21 01:00 Urine Color Yellow (Yellow) 10/10/21 00:50 Urine Appearance Clear (CLEAR) 10/10/21 00:50 Urine pH 5 (5-7) 10/10/21 00:50 Ur Specific Monette 1.015 (1.005-1.030) 10/10/21 00:50 Urine Protein Neg (Negative) 10/10/21 00:50 Urine Glucose (UA) Norm (Normal) 10/10/21 00:50 Urine Ketones 1+ (Negative) H 10/10/21 00:50 Urine Blood Neg (Negative) 10/10/21 00:50 Urine Nitrate Negative (Negative) 10/10/21 00:50 Urine Bilirubin Neg (Negative) 10/10/21 00:50 Urine Urobilinogen Norm mg/dL (Negative) 10/10/21 00:50 Ur Leukocyte Esterase Negative (Negative) 10/10/21 00:50 Serum Ketones Negative (Negative) 10/10/21 01:00 Discharge Plan Discharge Patient Disposition: Home Clinical Impression: Nausea & vomiting Qualifiers: Vomiting type: unspecified Qualified Code(s): R11.2 - Nausea with vomiting, unspecified Headache Qualifiers: Headache type: unspecified Headache chronicity pattern: acute headache Intractability: not intractable Qualified Code(s): R51.9 - Headache, unspecified Diabetes mellitus Qualifiers: Diabetes mellitus type: type 1 Diabetes mellitus complication status: with other specified complication Qualified Code(s): E10.69 - Type 1 diabetes mellitus with other specified complication Condition: Stable Prescriptions: New ondansetron 4 mg tablet,disintegrating 4 mg PO Q8H PRN (Reason: nausea and vomiting) Qty: 10 0RF No Action (DME) Dexcom G6 Transmitter Device See Rx Instructions .ROUTE .MEDSUPPLY Qty: 3 3RF Rx Instructions: use every 90 days (DME) Dexcom G6 Sensor Device See Rx Instructions .ROUTE .MEDSUPPLY Qty: 3 3RF Rx Instructions: As directed gabapentin 300 mg capsule 300 mg PO .at bed Qty: 90 3RF Rx Instructions: take 1 capsule daily at bedtime. Toujeo SoloStar U-300 Insulin 300 unit/mL (1.5 mL) insulin pen 42 unit SUBCUT QAM 90 Days Qty: 12.6 3RF terbinafine HCl 250 mg tablet 250 mg PO DAILY 90 Days Qty: 30 2RF (DME) Dexcom G6 Caustic Cresylate Shift Superintendent Misc See Rx Instructions .Route Qty: 1 3RF Rx Instructions: check blood sugar insulin lispro [Humalog U-100 Insulin] 100 unit/mL solution See Rx Instructions SUBCUT .COMPLEX Qty: 140 3RF Rx Instructions: SUBCUT; Max dose is 150 units per day. Via pump. Discharge Orders: Discharge ED (Routine); Ordered 10/10/21 Ordered By: Obey Aguilar Discharge Diet: Advance as tolerated Discharge Activity: Increase activity as tolerated Patient Instructions: Acute Nausea and Vomiting (ED) Activity Restrictions/Additional Instructions: Home and rest. Continue with routine care. Drinks frequent sips of fluid to maintain hydration. Use ondansetron tablets as needed for nausea. Monitor blood sugar. Follow-up with primary care as needed. Return to ER for high fever, blood in vomit or stool, or new concerns. Coding Level of Care Code ED Printed Circuit Board Preassembler for Nabil Fwd Exam Comprehensive
[2021-10-10 00:25] VITALS: BP 137/68; O2SAT 100
[2021-10-10 00:27] LABS: Basophils % 0.2 %; Eosinophils % 0.3 %; Hematocrit 44.3 % (37.0-47.0); Hemoglobin 14.3 g/dL (11.5-15.3); Lymphocytes # 0.9 10^3/uL (0.8-4.8); Mean Corpuscular HGB Conc 32.3 g/dL (30.0-36.0); Mean Corpuscular Volume 83.6 fl (81-99); Mean Platelet Volume 9.5 fL (7.4-10.4); Monocytes # 0.5 10^3/uL (0.2-0.9); Monocytes % 4.3 %; Neutrophils # 9.01 10^3/uL (1.8-7.7); Neutrophils % 85.8 %; Nucleated Red Blood Cells % 0 %; Platelet Count 255 10^3/cmm (130-400); Red Cell Distribution Width 13.7 % (12.1-15.1); White Blood Count 10.5 10^3/uL (4.0-10.0)
--- NOTE | 2021-10-10 00:27 | PC.NURSE ---
blood glucose pt blood glucose 180 per perri downey from pt self monitor
[2021-10-10 00:28] LABS: ABG PCO2 43.3 mmHg (35-45); ABG PH Result 7.41 (7.35-7.45); Arterial Blood Gas Hematocrit 42.1 % (37-47); Base Excess ABG 2.2 mmol/L (-2.0-2.0); Blood Gas Allen Test Pos; Blood Gas Sample Site Radial, left; Blood Gas Sample Type Arterial; HCO3 ABG 27.3 mmol/L (22-26); Oxygen Device ROOM AIR; PO2 ABG 76.7 mmHg (80.0-100.0)
[2021-10-10] MEDS: sodium chloride 0.9% 1,000 ML 999 ML IV (00:33)
[2021-10-10] MEDS: ondansetron 2 mg/ML SDV 2 mL 4 MG IVP (00:33)
[2021-10-10 00:44] LABS: Alanine Aminotransferase 22 U/L (0-33); Albumin Level 4.6 g/dL (3.5-5.2); Alkaline Phosphatase 79 IU/L (35-105); Anion Gap 14.8 (5-19); Aspartate Amino Transferase 15 U/L (0-32); Blood Urea Nitrogen 16 mg/dL (6-20); Calcium 10.2 mg/dL (8.5-10.5); Carbon Dioxide 28 mmol/L (22-29); Chloride 96 mmol/L (98-107); Globulin 2.9 g/dL (1.3-4.6); Glomerular Filtration Rate 131.7 mL/min (90-130); Glucose 193 mg/dL (65-115); Lipase 9 U/L (13-60); Osmolality Calculated 286 mOsm/kg (285-295); Potassium 3.8 mmol/L (3.5-5.1); Sodium 135 mmol/L (136-145); Total Bilirubin 0.5 mg/dL (0.15-1.2); Total Protein 7.5 g/dL (6.6-8.7)
[2021-10-10 00:57] LABS: Add Urine Microscopic? NO; Charge for UA Resulting for Rev
[2021-10-10 01:01] LABS: Bilirubin Urine Neg (Negative); Blood Urine Neg (Negative); Glucose Urine UA Norm (Normal); Ketones Urine 1+ (Negative); Leukocyte Esterase Urine Negative (Negative); Nitrate Urine Negative (Negative); Protein Urine Neg (Negative); Specific Gravity, Urine 1.015 (1.005-1.030); Urine Appearance Clear (CLEAR); Urine Color Yellow (Yellow); Urobilinogen Urine Norm (Negative); pH Urine 5 (5-7)
[2021-10-10] MEDS: diphenhydrAMINE 50 mg/mL SDV 1mL 25 MG IVP (01:27)
[2021-10-10] MEDS: metoclopramide 5 mg/mL SDV 2 mL 10 MG IVP (01:27)
[2021-10-10 01:29] LABS: Ketone (Acetest) Serum Negative (Negative)
[2021-10-10 01:31] LABS: HCG, Serum Qual Negative (Negative)
[2021-10-10] MEDS: sodium chloride 0.9% 500 ML 999 ML IV (02:03)
== END 2021-10-10 02:44 | disposition home or self-care (01) ==
PROVIDERS: Emergency Provider Nurse Practitioner Family
DX: R11.2 Nausea with vomiting, unspecified (principal); R51.9 Headache, unspecified; E10.9 Type 1 diabetes mellitus without complications; Z86.16 Personal history of COVID-19
CPT/HCPCS: 36600; 80053; 81003; 82009; 82803; 83690; 84703; 85025; 96361; 96374; 96375; 99284; J1200; J2405; J2765; J7030; J7040

== ENCOUNTER → 2022-01-13 09:41 | Outpatient (BNVA) | payer OTHER, SELFPAY | PROVIDERS: Visit Provider Clinical Nurse Specialist Adult Health | DX: E10.65 Type 1 diabetes mellitus with hyperglycemia (principal) | CPT/HCPCS: 80053; 83036 ==

== ENCOUNTER → 2022-12-31 11:18 | Outpatient (BNVA) | payer OTHER, SELFPAY | PROVIDERS: PCP Clinical Nurse Specialist Adult Health; Visit Provider Podiatrist Foot & Ankle Surgery | DX: E10.65 Type 1 diabetes mellitus with hyperglycemia; S93.324A Dislocation of tarsometatarsal joint of right foot, initial encounter; X58.XXXA Exposure to other specified factors, initial encounter; Z79.4 Long term (current) use of insulin | CPT/HCPCS: 73630 ==

== ENCOUNTER 2023-01-07 07:41 | Day surgery (SDC) | payer OTHER, SELFPAY ==
[2023-01-06 11:51] VITALS: BMI 31.0
[2023-01-07] VITALS (8 sets, daily range): BP systolic 116–153; BP diastolic 65–94; PULSE 84–95; RESP 16–18; TEMP 36.3–36.8; O2SAT 99–100
--- NOTE | 2023-01-07 | XR_ITS ---
WS: [id number] Right foot, C-arm fluoroscopy views, 01/07/2023 Clinical Data: Right 1st meta tarsal fusion Comparison: Right foot, 12/31/2022 Findings: Dr. Aguero performed internal fixation of the Lisfranc fracture with plate and screws at the bases o f the first and second metatarsals and orthopedic pins in the bases of the third and fourth metatarsa ls. XR/XR foot RT 2V [id number] Impression: Internal fixation of Lisfranc fracture of the right foot.
[2023-01-07] MEDS: midazolam 1 mg/mL INJ 2 mL 2 MG IVP (08:16)
[2023-01-07] MEDS: sodium chloride 0.9% 1,000 ML 30 ML IV (08:17)
--- NOTE | 2023-01-07 08:19 | W.PM.OPSUD ---
Surgery/Procedure H&P Update DATE OF PROCEDURE: January 07, 2023 DATE H&P PERFORMED: 12/31/22 CHANGES TO PREVIOUS DOCUMENTATION: None PREOP DIAGNOSIS: Right Lisfranc fracture dislocation PLANNED PROCEDURE: Operation Date: 01/07/23 07:00 Proposed Procedures p Right 1st Tarsometatarsal Joint Fusion [id number], [id number], [id number](Right) - Chaparro Aguero DPM s Percuatneous Pinning Rt 3rd/4th Metatarsal, right foot bone autograft(Right) - Chaparro Aguero DPM
--- NOTE | 2023-01-07 08:19 | PM.OP ---
Operative Report Date of procedure: January 07, 2023 Pre-op diagnosis: Right Lisfranc fracture dislocation at first, second, third, fourth tarsometatarsal joints. Post-op diagnosis: same Procedure done: Right first and second tarsometatarsal joint fusion CPT code 37818 Percutaneous pinning of right third tarsometatarsal joint. CPT code 67251 Percutaneous pinning right fourth tarsometatarsal joint. CPT code 31444 Implants: [place] Lapidus plate, [place] 3.5 mm locking screws and 4 mm homerun screw, [place] sign and straight Lisfranc plate with 2.7 mm locking and nonlocking screws. 0.062 K wire x2. 3-0 Vicryl, 4-0 Vicryl, 4-0 nylon. Specimens removed/disposition: N/A Pathology: N/A Surgeon: Chaparro Aguero D.P.M. [place] Rug Setter: Vandana Estimated blood loss: 5 See intraoperative documentation IV fluids: 0 Urine output: 0 Complications: None Findings: Gross instability at right first tarsometatarsal joint. Dislocation with fracture of the right second tarsometatarsal joint. Instability at right third and fourth tarsometatarsal joint. Brief History: Patient examined and evaluated, findings and treatment options discussed with patient at length.? She has a Lisfranc fracture dislocation with a homolateral dislocation involving second, third, fourth, fifth tarsometatarsal joints.? Positive cely sign with greater than 5 mm of displacement of the second metatarsal base laterally.? Discussed radiographic and clinical findings with the patient.? She relates to having a injury to her right foot in October 2022 where she was walking and felt a pop and had a abrupt onset of pain that was debilitating.? Since that time she has had lingering pain and instability of the right foot with difficulty loading weight on the forefoot.? She is essentially putting weight on the heel.? Discussed implications of a Lisfranc injury.? In her case she has gross instability at the tarsometatarsal joint.? Discussed surgical treatment options and patient wishes to proceed with a right tarsometatarsal joint arthrodesis likely involving first and second along with percutaneous pinning of third and fourth tarsometatarsal joints.? Patient will require extensive time off of work.? 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 I reviewed at length with the patient, the risks, potential complications, benefits, alternatives, expectations, and typical outcomes associated with the surgery. The risks and potential complications were explained in detail, including but not limited to infection, wound dehiscence or soft tissue complications, bleeding and hematoma, chronic edema, neuritis or nerve damage producing numbness or chronic pain, CRPS, failure to relieve pain or worsening pain, thick / painful / unsightly scar, limited motion / stiffness, malposition, delayed union, malunion, or nonunion, fracture, reaction to implants, anesthetic complications, venous thromboembolism, and deformity recurrence.? I discussed the notion of no regrets with the patient as it pertains to complications and outcomes. The patient seemed to understand the nature of the proposed care and required convalescence. They asked appropriate questions, answered to their satisfaction. They are aware no guarantees can be made as to a satisfactory outcome and they understand there may be other possible unforeseen complications or outcomes not listed here that will be treated accordingly if they arise. There were no written or implied guarantees given to the patient. They gave informed consent to proceed. Procedure: Under mild sedation the patient was brought to the operating room and placed on the operating table in supine position. A timeout was performed. Anesthesia was then administered by the anesthesia service. Local anesthesia injected by myself consisting of 30 cc of one-to-one mixture 1% lidocaine and 0.5% Marcaine plain in a ring block right ankle. Well-padded pneumatic tourniquet was applied to the right calf. The right lower extremity was scrubbed, prepped and draped utilizing normal aseptic technique. Right foot was then exanguinated with an Esmarch bandage and tourniquet inflated to 250 mmHg. Attention was directed to the dorsal medial aspect of the right first tarsometatarsal joint, utilizing intraoperative fluoroscopy loading the first ray there was gross instability articulation of the right first metatarsal base and medial cuneiform. Was also able to visualize a laterally displaced second metatarsal on the intermediate cuneiform and instability with subluxation of the third and fourth tarsometatarsal joints. Utilizing a dual incision the first and second tarsometatarsal joints were fused. A dorsal medial incision was performed medial and parallel to the extensor hallucis longus tendon of the right foot through skin with #15 blade with dissection carried down through subcutaneous tissue to the layer of periosteum. Care was taken to retract and preserve neurovascular and tendinous structures. All bleeders were ligated and cauterized as necessary. The first metatarsal base and medial cuneiform were distracted and all articular surface was denuded followed by subchondral drilling, irrigation and fixation utilizing a 4 mm [place] homerun screw from dorsal distal to proximal plantar with excellent bony apposition and compression noted with the first ray held in rectus this was confirmed with intraoperative fluoroscopy in all 3 standard views. It was further fixated utilizing a [place] primary Lapidus plate with 3.5 mm locking and nonlocking screws with excellent bony apposition and compression noted. The cuneiform screws captured the intermediate and lateral cuneiforms for additional stability. Attention was then directed to the second metatarsal, 15 blade was utilized to perform a linear incision directly over the second metatarsal and intermediate cuneiform through skin with dissection carried down through subcutaneous tissue with blunt and sharp technique. Care was taken to retract and preserve neurovascular and tendinous structures. All bleeders were ligated and cauterized as necessary. Second metatarsal base joint was prepped both at the base of the second metatarsal and distal aspect of the intermediate cuneiform second metatarsal was reduced anatomically utilizing a forcep and fixated with a [place] straight slanted tarsometatarsal joint/Lisfranc joint plate dorsally with 2.7 millimeter screws with excellent bony apposition and compression noted. Both incisions were irrigated with copious amounts of Staticin solution and closed in a layered fashion. Periosteum and deep fascia closed with 3-0 Vicryl. Subcutaneous tissue reapproximated 4-0 Vicryl and skin with 4-0 nylon. Anatomic reduction of the first and second tarsometatarsal joints with excellent arthrodesis sites with robust internal fixation was appreciated intraoperatively. Manipulating the third and fourth tarsometatarsal joints showed instability and subluxation. Attention was directed to the third metatarsal where percutaneously a 0.062 K wire was utilized and advanced from dorsal distal to proximal plantar across the third tarsometatarsal joint with anatomic reduction being maintained, K wire was bent at 90 degrees, trimmed and covered with a Jeremy ball. Manipulating fourth tarsometatarsal joint showed instability and subluxation. Attention was directed to the fourth metatarsal where percutaneously a 0.062 K wire was utilized and advanced from dorsal distal to proximal plantar across the 4 tarsometatarsal joint with anatomic reduction being maintained, K wire was bent at 90 degrees, trimmed and covered with a Jeremy ball. Standard AP, oblique and lateral views confirmed excellent placement of hardware and reduction of the tarsometatarsal joint. Incisions were dressed with Unna boot, sterile 4 x 4's, Kerlix followed by 4 inch Leland wrap and cam boot to the right lower extremity. The right lower extremity tourniquet was then deflated and a prompt hyperemic response was noted to the distal digits of the right foot. Patient tolerated the procedure and anesthesia well and was transferred to the PACU with vital signs stable and vascular status intact. Following a period of postoperative monitoring she will be discharged home. She was advised to remain strict nonweightbearing to the right foot. She is to elevate her right foot while resting. She was advised to begin taking a baby aspirin 81 mg once daily starting the morning after surgery to help potentially reduce the risks of deep vein thrombosis. Plans to discontinue aspirin when she is weightbearing in approximately 6 to 8 weeks. She was given at home care instructions, scheduled follow-up and my cell phone number to contact with any postoperative questions or concerns. Hydrocodone 10/325 mg was also prescribed to be taken judiciously as needed for pain.
[2023-01-07] MEDS: ceFAZolin 2,000 MG in sodium chloride 0.9% (plus) 50 ML 100 MG IV (08:23)
--- NOTE | 2023-01-07 08:42 | P.ANESASSM_ITS ---
Pre-Anesthetic Assessment Height/Weight: Height 1.75 m Weight 95.254 kg Temp Pulse Resp BP Pulse Ox O2 Del Method 97.9 F 95 17 130/85 100 Room Air 01/07/23 07:59 01/07/23 07:59 01/07/23 07:59 01/07/23 07:59 01/07/23 07:59 01/07/23 08:01 Preop Diagnosis: Right Lisfranc fracture dislocation Operation Date: 01/07/23 07:00 Proposed Procedures p Right 1st Tarsometatarsal Joint Fusion 41796, [id number], S93.324A(Right) - Chaparro Aguero DPM s Percuatneous Pinning Rt 3rd/4th Metatarsal, right foot bone autograft(Right) - Chaparro Aguero DPM Last intake: Intake Last Liquid Date 01/06/23 Last Liquid Time 18:30 Last Solid Date 01/06/23 Last Solid Time 18:30 Social No alcohol and No tobacco Airway Submandibular: within normal limits Cervical ROM: within normal limits Mallampati: Class I Metabolic Diabetes Mellitus Anesthetic Plan ASA status: 3 Anesthesia: General Medications/Allergies Home Medications Medication Instructions Recorded Confirmed Last Taken Type 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 meter,continuous #1 ea 11/24/20 12/31/22 Unknown Rx (Dexcom G6 Admitting Officer) insulin lispro 100 unit/mL See Rx Instructions SUBCUT 06/24/22 01/06/23 01/06/23 Rx subcutaneous solution (Humalog .COMPLEX #140 mL U-100 Insulin) venlafaxine 50 mg tablet 50 mg PO DAILY #30 tabs 07/14/22 01/06/23 01/06/23 Rx gabapentin 300 mg capsule 300 mg PO BID #180 caps 07/19/22 01/06/23 01/06/23 Rx 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 sensor (Dexcom G6 #3 ea 12/10/22 12/31/22 Unknown Rx Sensor device) 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 transmitter (Dexcom #1 ea 12/10/22 12/31/22 Unknown Rx G6 Transmitter device) Cam boot to right #1 ea 12/31/22 12/31/22 Unknown Rx Wheelchair with elevated right #1 ea 12/31/22 12/31/22 Unknown Rx foot rest hydrocodone 10 mg-acetaminophen 1 tab PO Q6H PRN pain 7 days #28 01/06/23 Unknown Rx 325 mg tablet tabs rizatriptan 10 mg tablet See Rx Instructions PO .COMPLEX 01/06/23 01/06/23 Rx #14 tabs Allergies Allergy/AdvReac Type Severity Reaction Status Date / Time morphine Allergy ALGY-Hives Verified 12/31/22 11:37 Current Medications Generic Name Dose Route Start Last Admin Trade Name Freq PRN Reason Stop Dose Admin Sodium Chloride 1,000 mls @ 30 mls/hr 01/07/23 08:00 01/07/23 08:17 Sodium Chloride 0.9% IV 01/08/23 07:59 30 mls/hr .Q24H ANETA Administration Midazolam HCl 2 mg 01/07/23 07:46 01/07/23 08:16 Midazolam 1 Mg/Ml Inj 2 Ml IVP 2 mg ONCE PRN Administration Preop Anxiety PFSH Anesthesia Medical History COVID-24 Jun 2020 FH: cholecystectomy Frequent headaches Hyperlipidemia 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 Major depression Uncontrolled type 1 diabetes mellitus Surgical History History of partial hysterectomy Family History Father Stroke Mother Diabetes Social History Second hand smoke exposure: No Smoking risk assessment/counseling performed?: No Alcohol intake: never Desire information about alcohol rehabilitation?: No Counseling given: No Substance/Drug Use: never Desire information about substance/drug rehabilitation?: No Counseling given: No Adopted: No Caregiver/support person: No Lives independently: Yes Household members: spouse Housing: House Marital status: Number of children: 3 Highest education level completed: Associate Degree: Occupational, Technical, Vocational Program service: No Current occupational status: employed Pets and animals: Yes Sexually active: Yes Do you think of yourself as: Straight/Heterosexual Current gender identity: Female Data Anesthesia Cardiac Studies: No Data to Display
[2023-01-07 08:54] LABS: Glucose Point of Care 174 mg/dL (70-110)
[2023-01-07] MEDS: lidocaine 2% INJ 20 mL 15 ML INJECTION (08:57)
[2023-01-07] MEDS: BUPivacaine 0.5% INJ 30 mL 15 ML INJECTION (08:58)
--- NOTE | 2023-01-07 10:00 | PC.NURSE ---
Pt arrived to PACU, resting comfortably. Dressing and boot to right foot C/D/I, right toes p/w/d, cap refill < 3 seconds. FOB elevated.
[2023-01-07 10:17] LABS: Glucose Point of Care 168 mg/dL (70-110)
--- NOTE | 2023-01-07 17:17 | ANE.PACU2 ---
Inpatient post-anesthesia follow up: Vital signs: Temperature 98.2 F Pulse Rate 93 Respiratory Rate 16 Blood Pressure 153/83 Pulse Oximetry 99 Oxygen Delivery Me thod Room Air Oxygen Flow Rate Fraction of Inspir ed Oxygen Hydration adequate: Yes Nausea and vomiting: No Pain level: 3 Mental status: Baseline
== END 2023-01-07 11:15 | disposition home or self-care (01) ==
PROVIDERS: PCP Internal Medicine; Visit Provider Podiatrist Foot & Ankle Surgery
PROC: (CPT 28740; principal; 2023-01-07 07:00)
PROC: (CPT 28606; 2023-01-07 07:00)
DX: X58.XXXA Exposure to other specified factors, initial encounter; S93.324A Dislocation of tarsometatarsal joint of right foot, initial encounter; E11.9 Type 2 diabetes mellitus without complications; Z79.4 Long term (current) use of insulin; Z79.891 Long term (current) use of opiate analgesic
CPT/HCPCS: 28606 ×2; 28730; 36416; 73620; 76000; 82962; C1713; J0690; J1100; J1200; J1885; J2250; J2405; J2704; J3490; J7030

== ENCOUNTER → 2023-01-20 14:06 | Outpatient (BNVA) | payer OTHER, SELFPAY | PROVIDERS: PCP Internal Medicine; Visit Provider Podiatrist Foot & Ankle Surgery | DX: Z98.890 Other specified postprocedural states; S92.901A Unspecified fracture of right foot, initial encounter for closed fracture; X58.XXXA Exposure to other specified factors, initial encounter | CPT/HCPCS: 73630 ==

== ENCOUNTER → 2023-02-09 08:01 | Outpatient (BNVA) | payer OTHER, SELFPAY | PROVIDERS: PCP Internal Medicine; Visit Provider Podiatrist Foot & Ankle Surgery | DX: Z98.890 Other specified postprocedural states (principal) | CPT/HCPCS: 73630 ==

== ENCOUNTER 2023-02-25 12:50 | Outpatient (CLI) | payer OTHER, SELFPAY ==
--- NOTE | 2023-02-25 13:30 | XR_ITS ---
WS: [id number] DEXA (DUAL ENERGY X-RAY ABSORPTIOMETRY) Bone mineral density was performed using a [employer] machine. HISTORY: Foot Fracture COMPARISON: None available. Lumbar spine BMD (L1-L4): 1.214 g/cm2 T score: 0.3 Z score: -0.2 Total hip BMD: Left: 0.798 g/cm2. T score: -1.7 Z score: -1.8 Right: 0.813 g/cm2. T score: -1.5 Z score: -1.7 10 year probability of a major osteoporotic fracture is 9.6%. IMPRESSION: OSTEOPENIA based upon the WHO classification for females.
== END 2023-02-25 12:51 | disposition home or self-care (01) ==
PROVIDERS: PCP Internal Medicine; Visit Provider Internal Medicine
DX: S92.909A Unspecified fracture of unspecified foot, initial encounter for closed fracture (principal); X58.XXXA Exposure to other specified factors, initial encounter; M85.80 Other specified disorders of bone density and structure, unspecified site
CPT/HCPCS: 77080

== ENCOUNTER → 2023-03-01 07:41 | Outpatient (BNVA) | payer OTHER, SELFPAY | PROVIDERS: PCP Internal Medicine; Visit Provider Podiatrist Foot & Ankle Surgery | DX: Z98.890 Other specified postprocedural states (principal) | CPT/HCPCS: 73630 ==

== ENCOUNTER → 2023-03-17 07:33 | Outpatient (BNVA) | payer OTHER, SELFPAY | PROVIDERS: PCP Internal Medicine; Visit Provider Podiatrist Foot & Ankle Surgery | DX: Z98.890 Other specified postprocedural states (principal) | CPT/HCPCS: 73630 ==

== ENCOUNTER 2023-03-20 13:21 | Emergency (ER) | payer OTHER, SELFPAY ==
[2023-03-20 13:27] VITALS: BP 127/80; PULSE 88; RESP 16; TEMP 36.6; O2SAT 99; BMI 31.0
--- NOTE | 2023-03-20 13:40 | W.ED.HA ---
HPI - Headache General: Chief Complaint: Headache Stated Complaint: migraine Time Seen by Provider: 03/20/23 13:36 History of Present Illness: patient presents to the ER with a migraine headache. Patient has a history of chronic migraines. Patient has tried Maxalt Tylenol hot and cold therapy with no relief. Patient states that headache is been going on for about 3 days with nausea and vomiting. Patient states it is a bandlike around the front of her head and behind her left eye. It is her normal headache except just worse and the fact that she cannot get rid of it. Patient has had to come to the ER previously for headache like this. 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 Major depression Uncontrolled type 1 diabetes mellitus Surgical History History of partial hysterectomy Family History Father Stroke Mother Diabetes Social History Second hand smoke exposure: No Alcohol intake: never Substance/Drug Use: never Adopted: No Caregiver/support person: No Lives independently: Yes Household members: spouse Housing: House Marital status: Number of children: 3 Highest education level completed: Associate Degree: Occupational, Technical, Vocational Program service: No Current occupational status: employed Pets and animals: Yes Sexually active: Yes Do you think of yourself as: Straight/Heterosexual Current gender identity: Female Physical Exam Const: COMMON NORMALS: no acute distress, average body habitus, patient oriented x3, no limitations, healthy appearing, alert and well nourished HENMT: COMMON NORMALS: normocephalic, atraumatic, hearing grossly normal bilaterally, external ears normal, Normal external nose present, moist oral mucous membranes and oropharynx normal HEAD & SCALP: normocephalic and atraumatic NOSE: Normal external nose present EXTERNAL EAR: Yes external ears normal Eye: COMMON NORMALS: Equal, round and reactive pupils present, EOMs intact bilaterally, conjunctivae normal and no scleral icterus CONJUNCTIVA: Yes conjunctivae normal PUPIL: Yes Equal, round and reactive pupils present Neck/C-Spine: COMMON NORMALS: full ROM, no lymphadenopathy, supple, no meningeal signs, no JVD and Thyroid normal THYROID: Thyroid normal Lymph: LYMPHATIC: no lymphadenopathy noted and no lymphedema noted Chest: COMMONS NORMALS: normal inspection of the chest and normal palpation of entire chest wall Resp: COMMON NORMALS: normal respiratory effort, No retractions, No use of accessory muscles and clear to auscultation bilaterally AUSCULTATION: clear to auscultation bilaterally Cardio: COMMON NORMALS: no JVD, regular rate, regular rhythm, S1 normal heart sound present, S2 normal heart sound present, No gallops present (Cardio), No clicks present (Cardio), No murmurs present (Cardio) and No rub (Cardio) RATE: regular rate RHYTHM: regular rhythm HEART SOUNDS: S1 normal heart sound present and S2 normal heart sound present GI: COMMON NORMALS: Normal to inspection, nondistended, normoactive bowel sounds present, Soft to palpation, non-tender, No hepatosplenomegaly present and no masses PALPATION: Yes Soft to palpation and Yes No hepatosplenomegaly present : COMMON NORMALS: Yes no CVA tenderness BLADDER/KIDNEY EXAM: Yes no CVA tenderness Back/Pelvis: COMMON NORMALS: no CVA tenderness Neuro: COMMON NORMALS: patient oriented x3 SENSORIUM/ORIENTATION: Yes alert MENINGEAL SIGNS: Yes no meningeal signs Course Vital Signs: Vital signs: Vital Signs Temperature 97.8 F 03/20/23 13:27 Pulse Rate 88 03/20/23 13:27 Respiratory Rate 16 03/20/23 13:27 Blood Pressure 127/80 03/20/23 13:27 Pulse Oximetry 99 03/20/23 13:27 Oxygen Delivery Me thod Room Air 03/20/23 13:27 MDM - Headache Medical Decision Making Patient presents to the ER with complaint of a migraine that is not resolving with her standard migraine medications. Patient was given 1 L sodium chloride bolus, Reglan 10 mg, Benadryl 50 mg, Toradol 30 mg, upon recheck patient is sleeping soundly. Patient be discharged home to follow-up with her PCP Differential Diagnosis Likely migraine and headache; Unlikely tension headache, subarachnoid hemorrhage, meningitis, sinusitis or postconcussion syndrome Medical Records I reviewed the patient's medical records. Lab Data I reviewed the patient's lab results. No radiology studies performed this visit Discharge Plan Discharge Patient Disposition: Home Clinical Impression: Migraine Qualifiers: Migraine type: unspecified Status migrainosus presence: without status migrainosus Intractability: not intractable Qualified Code(s): G43.909 - Migraine, unspecified, not intractable, without status migrainosus Condition: Stable Prescriptions: No Action (DME) Cam boot to right See Rx Instructions .Route .MEDSUPPLY Qty: 1 0RF Rx Instructions: As directed (DME) Wheelchair with elevated right foot rest See Rx Instructions .Route .MEDSUPPLY Qty: 1 0RF Rx Instructions: As directed by HOME (DME) Dexcom G6 Marketing Database Analyst Misc See Rx Instructions .Route Qty: 1 3RF Rx Instructions: check blood sugar venlafaxine 50 mg tablet 50 mg PO DAILY Qty: 30 11RF gabapentin 300 mg capsule 300 mg PO BID Qty: 180 2RF (DME) Dexcom G6 Sensor Device See Rx Instructions .ROUTE .COMPLEX Qty: 3 3RF Dose Instruction: USE DIRECTED Rx Instructions: USE DIRECTED (DME) Dexcom G6 Transmitter Device See Rx Instructions .ROUTE .MEDSUPPLY Qty: 1 0RF Rx Instructions: use every 90 days rizatriptan 10 mg tablet See Rx Instructions PO .COMPLEX Qty: 14 2RF Rx Instructions: take 1 tablet at onset of headache; if no relief, may repeat 1 tablet after at least 2 hrs insulin lispro [Humalog U-100 Insulin] 100 unit/mL solution See Rx Instructions .ROUTE .COMPLEX Qty: 140 0RF Dose Instruction: INJECT INSULIN SUB-Q PER PUMP DIRECTED, MAX DOSE IS 150 UNITS PER DAY. Rx Instructions: INJECT INSULIN SUB-Q PER PUMP DIRECTED, MAX DOSE IS 150 UNITS PER DAY. Discharge Orders: Discharge ED (Routine); Ordered 03/20/23 Ordered By: Jose Luis Chinchilla Referrals: Jesus Aleman MD [Primary Care Provider] - Patient Instructions: Headache - Migraine (Adult) Activity Restrictions/Additional Instructions: please follow-up with your PCP within the next 7 days or sooner as needed for further evaluation and treatment of your migraines. Coding Level of Care Code ED Habitat Conservation Planner for Nabil Manzo
[2023-03-20] MEDS: metoclopramide 5 mg/mL SDV 2 mL 10 MG IVP (14:05)
[2023-03-20] MEDS: ketorolac 30 mg/mL INJ IVP (14:05)
[2023-03-20] MEDS: diphenhydrAMINE 50 mg/mL SDV 1mL IVP (14:05)
[2023-03-20] MEDS: sodium chloride 0.9% 1,000 ML 999 ML IV (14:06)
[2023-03-20 15:21] VITALS: BP 112/76; PULSE 88; RESP 18; TEMP 36.6; O2SAT 100
== END 2023-03-20 15:21 | disposition home or self-care (01) ==
PROVIDERS: Emergency Provider Emergency Medicine; PCP Internal Medicine
DX: G43.909 Migraine, unspecified, not intractable, without status migrainosus (principal); Z79.4 Long term (current) use of insulin; E78.5 Hyperlipidemia, unspecified; E10.9 Type 1 diabetes mellitus without complications
CPT/HCPCS: 96374; 96375; 99284; J1200; J1885; J2765; J7030

== ENCOUNTER → 2023-03-24 08:25 | Outpatient (BNVA) | payer OTHER, SELFPAY | PROVIDERS: PCP Internal Medicine; Visit Provider Podiatrist Foot & Ankle Surgery | DX: Z98.890 Other specified postprocedural states (principal); M79.671 Pain in right foot | CPT/HCPCS: 73630 ==

== ENCOUNTER 2023-03-24 10:43 | Outpatient (CLI) | payer OTHER, SELFPAY ==
--- NOTE | 2023-03-24 11:15 | USCV_ITS ---
Latosha Hammonds Age: 52 Gender: F : 1970 Exam Date: 03/24/2023 11:05 Ordering Phys: Chaparro Aguero DPM Technologist: LARISSA Exam Location: [facility] – [place] Indication: SWELLING PAIN HISTORY: Lower extremity pain. Lower extremity swelling. PROCEDURES: Venous duplex imaging was performed in only the right lower extremity. The following venous structures were evaluated: common femoral vein, profunda vein, proximal portion of the greater saphenous vein, superficial femoral vein, and the popliteal vein. In addition, the posterior tibial and peroneal trunk were evaluated. Serial compression, augmentation maneuvers, and spectral Doppler flow evaluation were performed. FINDINGS: No evidence of DVT seen in any vessel visualized at this time. CONCLUSIONS No evidence of right lower extremity DVT. Massimo Lopez MD (Electronically Signed) Final Date: 24 March 2023 11:54 S
== END 2023-03-24 10:44 | disposition home or self-care (01) ==
LOC: RAD 10:44
PROVIDERS: PCP Internal Medicine; Visit Provider Podiatrist Foot & Ankle Surgery
DX: M79.661 Pain in right lower leg (principal); M79.89 Other specified soft tissue disorders
CPT/HCPCS: 36415; 80053; 85025; 85378; 93971

== ENCOUNTER 2023-03-30 09:52 | Outpatient (CLI) | payer OTHER, SELFPAY ==
--- NOTE | 2023-03-30 10:15 | USCV_ITS ---
Latosha Hammonds Age: 52 Gender: F : 1970 Exam Date: 03/30/2023 10:05 Ordering Phys: Chaparro Aguero DPM Technologist: LARISSA Exam Location: [facility] – [place] Indication: Rescan LE Rt for elevated D-Dimer HISTORY: Elevated D-dimer PROCEDURES: Venous duplex imaging was performed in only the right lower extremity. The following venous structures were evaluated: common femoral vein, profunda vein, proximal portion of the greater saphenous vein, superficial femoral vein, and the popliteal vein. Serial compression, augmentation maneuvers, and spectral Doppler flow evaluation were performed. FINDINGS: Normal 2-D Doppler and augmentation and compressibility throughout the lower extremity venous structures. Additional imaging through the proximal calf veins also reveals no thrombus. Limited evaluation of the greater saphenous vein is patent with no thrombus. CONCLUSIONS No DVT right lower extremity. Dr. Lanette Cunningham DO (Electronically Signed) Final Date: 30 March 2023 11:40 S
== END 2023-03-30 09:53 | disposition home or self-care (01) ==
LOC: RAD 09:54
PROVIDERS: PCP Clinical Nurse Specialist Adult Health; Visit Provider Podiatrist Foot & Ankle Surgery
DX: M79.661 Pain in right lower leg (principal); R79.1 Abnormal coagulation profile
CPT/HCPCS: 93971

== ENCOUNTER → 2023-03-31 07:11 | Outpatient (BNVA) | payer OTHER, SELFPAY | PROVIDERS: PCP Clinical Nurse Specialist Adult Health; Visit Provider Podiatrist Foot & Ankle Surgery | DX: Z98.890 Other specified postprocedural states (principal); M79.661 Pain in right lower leg | CPT/HCPCS: 73630 ==

== ENCOUNTER → 2023-04-25 07:54 | Outpatient (BNVA) | payer OTHER, SELFPAY | PROVIDERS: PCP Clinical Nurse Specialist Adult Health; Visit Provider Podiatrist Foot & Ankle Surgery | DX: Z98.890 Other specified postprocedural states (principal); E10.649 Type 1 diabetes mellitus with hypoglycemia without coma; L60.0 Ingrowing nail; M21.41 Flat foot [pes planus] (acquired), right foot | CPT/HCPCS: 73630 ==

== ENCOUNTER → 2023-05-04 15:25 | Outpatient (BNVA) | payer OTHER, SELFPAY | PROVIDERS: PCP Clinical Nurse Specialist Adult Health; Visit Provider Podiatrist Foot & Ankle Surgery | DX: Z98.890 Other specified postprocedural states (principal); E10.649 Type 1 diabetes mellitus with hypoglycemia without coma; M14.671 Charcot's joint, right ankle and foot; M21.41 Flat foot [pes planus] (acquired), right foot; Z79.4 Long term (current) use of insulin; E10.65 Type 1 diabetes mellitus with hyperglycemia | CPT/HCPCS: 36415; 73630; 80053; 85025; 85651; 86140 ==

== ENCOUNTER 2023-05-10 15:03 | Outpatient (CLI) | payer OTHER, SELFPAY ==
--- NOTE | 2023-05-10 15:15 | MR_ITS ---
WS: [id number] EXAMINATION: MR foot RT wo/w con [id number] ORDER DATE: 05/10/2023 4:24 PM COMPARISON: None. HISTORY: to rule out infection to right foot CONTRAST: None. TECHNIQUE: Sagittal T1, sagittal STIR, coronal PD, coronal T2, axial T1, axial T2, and axial PD imagi ng with fat saturation technique. Post gadolinium imaging includes axial T1, coronal T1, and sagittal T1 with fat saturation technique. FINDINGS: Images degraded due to susceptibility artifact from hardware. Postoperative changes plate a nd screw fixation at the first and second TMT joints. Osteopenia. Diffuse soft tissue edema with enha ncement compatible with cellulitis. Replacement of the normal fatty T1 bone marrow signal involving the cuboid and cuneiforms as well as the navicular with diffuse enhancement and edema suspicious for osteomyelitis. Nonspecific abnormal b one marrow signal extends into the base of the first second and third metatarsals some of which may b e reactive. Small ankle effusion. Nondisplaced fractures involving the calcaneus with edema. Additional suspected nondisplaced fracture involving the anterior talus at the neck. No flattening of the talar dome. Distal Achilles appears i ntact. No drainable abscess or fluid collection. IMPRESSION: Images limited due to susceptibility artifact from hardware 1. Diffuse edema and enhancement throughout the foot soft tissues compatible with cellulitis. 2. Replacement of normal T1 fatty bone marrow signal involving the cuneiforms, cuboid, and navicular suspicious for osteomyelitis. 3. Nondisplaced fractures involving the anterior calcaneus and talar neck without displacement. 4. Prior postoperative changes plate and screw fixation involving the first and second TMT joints.
== END 2023-05-10 15:04 | disposition home or self-care (01) ==
LOC: RAD 15:03
PROVIDERS: PCP Clinical Nurse Specialist Adult Health; Visit Provider Podiatrist Foot & Ankle Surgery
DX: E10.610 Type 1 diabetes mellitus with diabetic neuropathic arthropathy (principal); E10.649 Type 1 diabetes mellitus with hypoglycemia without coma; S92.024A Nondisplaced fracture of anterior process of right calcaneus, initial encounter for closed fracture; S92.114A Nondisplaced fracture of neck of right talus, initial encounter for closed fracture; X58.XXXA Exposure to other specified factors, initial encounter; Z98.890 Other specified postprocedural states
CPT/HCPCS: 73720; A9577

== ENCOUNTER → 2023-05-18 15:42 | Outpatient (BNVA) | payer OTHER, SELFPAY | PROVIDERS: PCP Clinical Nurse Specialist Adult Health; Visit Provider Podiatrist Foot & Ankle Surgery | DX: E10.610 Type 1 diabetes mellitus with diabetic neuropathic arthropathy; E10.649 Type 1 diabetes mellitus with hypoglycemia without coma; M21.41 Flat foot [pes planus] (acquired), right foot | CPT/HCPCS: 73630 ==

== ENCOUNTER → 2023-06-02 15:35 | Outpatient (BNVA) | payer OTHER, SELFPAY | PROVIDERS: PCP Clinical Nurse Specialist Adult Health; Visit Provider Podiatrist Foot & Ankle Surgery | DX: M14.671 Charcot's joint, right ankle and foot (principal); E10.649 Type 1 diabetes mellitus with hypoglycemia without coma; M21.41 Flat foot [pes planus] (acquired), right foot; Z79.4 Long term (current) use of insulin | CPT/HCPCS: 73630 ==

== ENCOUNTER → 2023-06-30 14:19 | Outpatient (BNVA) | payer OTHER, SELFPAY | PROVIDERS: PCP Internal Medicine; Visit Provider Podiatrist Foot & Ankle Surgery | DX: M14.671 Charcot's joint, right ankle and foot (principal); E10.649 Type 1 diabetes mellitus with hypoglycemia without coma; M21.41 Flat foot [pes planus] (acquired), right foot; Z79.4 Long term (current) use of insulin | CPT/HCPCS: 73630 ==

== ENCOUNTER → 2023-07-27 07:27 | Outpatient (BNVA) | payer OTHER, SELFPAY | PROVIDERS: PCP Internal Medicine; Visit Provider Podiatrist Foot & Ankle Surgery | DX: M14.671 Charcot's joint, right ankle and foot (principal); E10.649 Type 1 diabetes mellitus with hypoglycemia without coma; M21.41 Flat foot [pes planus] (acquired), right foot; M76.72 Peroneal tendinitis, left leg; Z79.4 Long term (current) use of insulin; M79.672 Pain in left foot | CPT/HCPCS: 73630 ==

== ENCOUNTER → 2023-09-07 07:24 | Outpatient (BNVA) | payer OTHER, SELFPAY | PROVIDERS: PCP Internal Medicine; Visit Provider Podiatrist Foot & Ankle Surgery | DX: M14.671 Charcot's joint, right ankle and foot (principal); E10.649 Type 1 diabetes mellitus with hypoglycemia without coma; M21.41 Flat foot [pes planus] (acquired), right foot; M76.72 Peroneal tendinitis, left leg; E10.65 Type 1 diabetes mellitus with hyperglycemia; Z79.4 Long term (current) use of insulin | CPT/HCPCS: 73630 ==

== ENCOUNTER → 2023-12-30 12:21 | Outpatient (BNVA) | payer OTHER, SELFPAY | PROVIDERS: PCP Internal Medicine; Visit Provider Podiatrist Foot & Ankle Surgery | DX: E10.610 Type 1 diabetes mellitus with diabetic neuropathic arthropathy; M76.72 Peroneal tendinitis, left leg; E10.649 Type 1 diabetes mellitus with hypoglycemia without coma; M21.41 Flat foot [pes planus] (acquired), right foot; E10.65 Type 1 diabetes mellitus with hyperglycemia; M25.372 Other instability, left ankle | CPT/HCPCS: 73630 ==

== ENCOUNTER → 2024-03-15 09:57 | Outpatient (BNVA) | payer OTHER, SELFPAY | PROVIDERS: PCP Internal Medicine; Visit Provider Podiatrist Foot & Ankle Surgery | DX: M14.671 Charcot's joint, right ankle and foot (principal); M76.72 Peroneal tendinitis, left leg; E10.649 Type 1 diabetes mellitus with hypoglycemia without coma; M21.41 Flat foot [pes planus] (acquired), right foot; E10.65 Type 1 diabetes mellitus with hyperglycemia; M25.372 Other instability, left ankle; Z79.4 Long term (current) use of insulin | CPT/HCPCS: 73630 ==

== ENCOUNTER → 2024-06-11 08:41 | Outpatient (BNVA) | payer OTHER, SELFPAY | PROVIDERS: PCP Internal Medicine; Visit Provider Podiatrist Foot & Ankle Surgery | DX: M14.671 Charcot's joint, right ankle and foot (principal); E10.649 Type 1 diabetes mellitus with hypoglycemia without coma; M21.41 Flat foot [pes planus] (acquired), right foot; M76.72 Peroneal tendinitis, left leg; M25.372 Other instability, left ankle; Z79.4 Long term (current) use of insulin | CPT/HCPCS: 73630 ==

== ENCOUNTER → 2024-08-01 09:17 | Outpatient (BNVA) | payer OTHER, SELFPAY | PROVIDERS: PCP Internal Medicine; Visit Provider Podiatrist Foot & Ankle Surgery | DX: M79.672 Pain in left foot (principal); E10.649 Type 1 diabetes mellitus with hypoglycemia without coma; M21.41 Flat foot [pes planus] (acquired), right foot; M76.72 Peroneal tendinitis, left leg; M25.372 Other instability, left ankle; E10.610 Type 1 diabetes mellitus with diabetic neuropathic arthropathy; Z79.4 Long term (current) use of insulin | CPT/HCPCS: 36415; 73630; 85025; 85651; 86140 ==

== ENCOUNTER 2025-05-05 10:23 | Inpatient (IN) | payer OTHER, SELFPAY ==
[2025-05-05] VITALS (17 sets, daily range): BP systolic 97–135; BP diastolic 44–71; PULSE 93–108; RESP 13–22; TEMP 36.3–36.6; O2SAT 90–100; BMI 33.2
--- OUTSIDE RECORDS SUMMARY | 2025-05-05 10:26 | XMS_ITS | Patient Health Record ---
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00-.10 NRBC# .00 .00-.20 X10'3 NRBC% .00 .00-.20 /100 int act WBC's Comprehensive Metabolic Pane l (CMP) 95653 Reviewed date:11/30/2024 09:53:12 AM Interpretation: Performing Lab: Notes/Report: Diagnosis Description: 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 Sonya Vega, [place]URA [address]. CLIA ID#: [id number] BUN 22 7-21 MG/DL HI Creat .67 .51-1.17 MG/DL H-xzsjqb-t-benzoquinone imine (NAPQI) is a metabolite of acetaminophen, NAPQI concentrations of apparoximately 10 mg/L correlation to toxic levels of acetaminophen demonstrates a greater than or equil to 10% change in results. NAPQI concentrations greater than this may lead to falsely depressed results for patient samples. Use of this assay is not recommended for patients undergoing treatment with phenindione, due to the potential for falsely depressed results. GFR 105.1 NA Calculation pe rformed from GFR calculator provided by the [employer]. Glomerular Filtration rate(GRF) is the best overall index of kidney function. Normal GFR varies according to age,sex, body size, and declines with age. The [employer] recommends using the CKD-EPI Creatinine Equation(2020) to estimate GFR. BUN/Creat Ratio 32.8 12.0-20.0 % HI Total Protein 7.1 5.8-8.0 G/DL Albumin 4.4 3.2-4.8 G/DL Globulin 2.7 2.3-3.5 G/DL Alb/Glob 1.6 0.8-2.2 Calcium 9.3 8.7-10.4 MG/DL Sodium 138 136-145 MMOL/L Potassium 4.3 3.5-5.1 MMOL/L Chloride 102 98-107 MMOL/L CO2 27.5 20.0-31.0 MMOL/L Anion Gap 13 5-15 Alk Phos 98 46-116 Bili Total .4 .3-1.2 MG/DL Use of this assay is not recommended for patients undergoing treatment with eltrombopag due to the potential for falsely elevated results. 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 >7.0 % diabetics. EAG 217 NA Estimated Aver age Glucose(EAG). 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 TSH 2.546 .358-3.740 MlU/ML Microalbumin (U) Random 8204 3 Reviewed date:11/30/2024 09:52:57 AM Interpretation: Performing Lab: Notes/Report: Ur Microalbumin 127.0 .0-30.0 MG/L HI Ur Creat 135.6 29.0-226.0 Mal/Crea/Ratio 93.7 .0-30.0 mg Alb/g Cr HI Reason For Referral No Information Medications Medication SIG (Take, Route, Frequency, Duration) Notes Start Date End Date Status Dexcom G7 Unit Control Worker - Device change every 10 days; Duration: 30 days 05/01/2025 Active CeleBREX 50 MG Capsule 1 capsule Orally Once a day Active Pregabalin 150 MG Capsule 1 capsule Orally twice a day; Duration: 60 days 11/13/2024 07/10/2025 Active Insulin Lispro 100 UNIT/ML Solution INJECT DIRECTED VIA PUMP, MAX DAILY DOSE OF 150 UNITS; Duration: 27 Active Rizatriptan Benzoate 10 MG Tablet 1 tablet Orally Once a day; Duration: 90 days Active HumaLOG 100 UNIT/ML Solution Cartridge as directed Subcutaneous Not-Taking Dexcom G6 Transmitter - Miscellaneous as directed in vitro apply once every 10 days 30 days; Duration: 30 days 08/15/2023 Active Celecoxib 200 mg Capsule take 1 capsule BY MOUTH TWICE DAILY with food Orally twice a day; Duration: 30 days Active Venlafaxine HCl 75 MG Tablet 2 tab Orally Once a day; Duration: 90 days Active Dexcom G6 Sensor - Miscellaneous as directed; Duration: 30 days 09/07/2023 Active Dexcom G7 Sensor - Miscellaneous change every 10 days; Duration: 30 days 05/01/2025 Active Dexcom G7 Sensor - Miscellaneous as directed; Duration: 30 days 04/29/2025 Active Social History Tobacco Use: Social History Observation Description Date Details (start date - stop date) Never Smoker NA - NA Social History Depression Screening Social Info Question Answer Notes depression screening findings Findings Negative (0 -4) 11/13/24 PHQ-9 Little interest or p jocelyne in doing things Not at all Feeling down, depressed, or hopeless Not at all Trouble falling or staying asleep, or sleeping t oo much Not at all Feeling tired or having little energy Not at all Poor appetite or overeating Not at all Feeling bad about yourself, or that you are a failure, or have let yourself or your family down Not at all Trouble concentrating on thi ngs, such as reading the newspaper or watching television Not at all Moving or speaking so slowly that other people could have noticed. Or the opposite ? being so fidgety or restless that you have been moving around a lot more than usual Not at all Thoughts that you would be b ced off , or of hurting yourself in some way Not at all Total Score 0 Drugs/Alcohol: Social Info Question Answer Notes Drugs Have you used drugs other than those for medical reasons in the past 12 months? No Drug/Alcohol: Social Info Question Answer Notes AUDIT-C (Standard) Did you have a drink containing alcohol in the past year? No Points 0 Interpretation Negative Tobacco Use: Social Info Question Answer Notes Tobacco Control (Standard) Tobacco use: Nonsmoker Section Notes: Tob: 05/08/24; Dep: 05/08/24 CIME Dep/Tob 11/13/24 Tob: 05/08/24; Dep: 05/08/24 Tob: 05/08/24; Dep: 05/08/24 Problems Problem Type SNOMED Code ICD Code Onset Dates Problem Status W/U Status Risk Notes Problem Information temporarily unavailable Infection of toe (L08.9) Active confirmed Problem Information temporarily unavailable Insulin pump in place (Z96.41) Active confirmed Problem Information temporarily unavailable Coccyx pain (M53.3) Active confirmed Problem Information temporarily unavailable History of anemia (Z86.2) Active confirmed Problem Information temporarily unavailable Episodic migraine (G43.909) Active confirmed Problem Information temporarily unavailable Type 1 diabetes mellitus with other neurologic complication (E10.49) Active confirmed Vital Signs Heart Rate 90 /min 11/13/2024 Temperature 97.7 degrees Fahrenheit 11/13/2024 Oximetry 98 % 11/13/2024 Blood pressure diastolic 86 mm Hg 11/13/2024 Height-cm 175.26 cm 11/13/2024 Weight-kg 114.76 kg 11/13/2024 Height 69 in 11/13/2024 Blood pressure systolic 132 mm Hg 11/13/2024 Weight 253 lbs 11/13/2024 BMI 37.36 kg/m2 11/13/2024 Encounters Encounter Location Date Provider Diagnosis [facility] [address] [place] [phone] 05/08/2024 Tyrese Lerma Episodic migraine G43.909 ; Type 1 diabetes mellitus with other neurologic complication E10.49 ; Insulin pump in place Z96.41 and Depression screen Z13.31 [facility] [address] [address] 07/10/2024 Tyrese Lerma Coccyx pain M53.3 ; Infection of toe L08.9 ; Type 1 diabetes mellitus with other neurologic complication E10.49 [address] Z96.41 [facility] [address] [place] [phone] 11/13/2024 Tyrese Lerma Type 1 diabetes mellitus with other neurologic complication E10.49 ; Insulin pump in place Z96.41 ; Coccyx pain M53.3 ; Episodic migraine G43.909 ; Microalbuminuria R80.9 and Depression screen Z13.31 [facility] [address] [address] 09/20/2024 Tyrese Lerma [facility] [address] [place] [phone] 12/06/2024 [facility] [address] [place] [address] 01/08/2025 [facility] [address] [place] [address] 04/25/2025 [facility] [address] [place] [address] 04/25/2025 [facility] [address] [place] [address] 04/29/2025 [facility] [address] [place] [address] 05/01/2025 [facility] Encounter Date Diagnosis (ICD Code) Assessment Notes Treatment Notes Treatment Clinical Notes Section Notes 11/13/[address] (ICD-10 - Z96.41) 11/13/2024 Type 1 diabetes mellitus with other neurologic complication (ICD-10 - E10.49) 07/10/2024 Infection of toe (ICD-10 - L08.9) 07/10/2024 Coccyx pain (ICD-10 - M53.3) 05/08/2024 Episodic migraine (ICD-10 - G43.909) 05/08/2024 Type 1 diabetes mellitus with other neurologic complication (ICD-10 - E10.49) 07/10/2024 Type 1 diabetes mellitus with other neurologic complication (ICD-10 - E10.49) 05/08/[address] (ICD-10 - Z96.41) 11/13/2024 Coccyx pain (ICD-10 - M53.3) 07/10/[address] (ICD-10 - Z96.41) 05/08/2024 Depression screen (ICD-10 - Z13.31) 11/13/2024 Episodic migraine (ICD-10 - G43.909) 11/13/2024 Microalbuminuria (ICD-10 - R80.9) 11/13/2024 Depression screen (ICD-10 - Z13.31) 11/13/2024 Other Venipuncture performed by Keisha [facility]. Left arm/hand. One attempt. Pt tolerated well, bleeding controlled with light dressing. Lab sent to [facility] via prosthodontist. 12/06/2024 Other Diabetic foot exam performed: -History obtained from patient/caregi chris -Physical examination completed while addressing skin breakdown, ulcer formation, and vascular perfusion (hair growth, pulses, and temperature changes) -Teaching given to patient/caregi chris regarding daily foot care/examinati on/footwear/he alth risk management. - Encouraged annual diabetic foot exams and daily self foot checks. Plan Of Treatment Next Appt Details Provider Name:Tyrese Lerma, 09/16/2025 10:20:00 AM, [address] [place] [address], [phone], Insurance Providers Payer Name Payer Address Payer Phone Subscriber Number Group Number Insured Name Patient Relationship to Insured Coverage Start Date Coverage End Date [facility] Medicaid Replacement [address] [facility] [place] [phone] [id number] MAKENNA HAMMONDS Self - patient is the insured Medical (General) History Medical History History ICD Code sharco R foot tendenitis L foot migraines type I diabetes anxiety Depression osteopenia Surgical History Surgery Date(Month/Year) hysterectomy R foot surgery gall bladder removal
--- NOTE | 2025-05-05 10:47 | W.ED.GENADLT ---
Documented by User: CHER Serrano 05/05/25 12:03 HPI - General Adult General: Chief complaint: General Medical Stated complaint: high BS Time Seen by Provider: 05/05/25 10:26 Source: patient Mode of arrival: ambulatory Limitations: no limitations History of Present Illness: . Patient is a 54-year-old female with history of type 1 diabetes who presents the emergency department complaining of high blood sugar at home. States that she thinks that she has DKA, history of similar states that her Dexcom has not been working recently. She notes that she has been nauseous all morning, vomiting, and feels weak. Her blood sugar monitor at home has just been reading high. She states that she has been without her transmitter and her Dexcom for over a week and thinks that this is how long her blood sugar has been running high for her. Blood sugar with triage is 531. She appears weak and tired at this time, minimally tachycardic but no respiratory distress. 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 ea 11/24/20 (Dexcom G6 Master Certified Rv Technician) Cam boot to right #1 ea 12/31/22 Wheelchair with elevated right #1 ea 12/31/22 foot rest rizatriptan 10 mg tablet See Rx Instructions PO .COMPLEX 01/06/23 #14 tabs ROSEBUD Boot to right #1 ea 05/04/23 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 transmitter (Dexcom #1 ea 05/04/23 G6 Transmitter device) Humalog U-100 Insulin 100 unit/mL See Rx Instructions .Route 05/16/23 subcutaneous solution (insulin .COMPLEX #140 mL lispro) 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 sensor (Dexcom G6 #6 ea 03/19/24 Sensor device) Articulating AFO to the left #1 ea 06/11/24 Custom insoles 1 to right #1 ea 06/11/24 Diabetic Shoes with Custom Molded #1 ea 06/29/24 Orthotics mupirocin 2 % topical ointment 1 applic topical TID #15 grams 09/10/24 Allergies Allergy/AdvReac Type Severity Reaction Status Date / Time morphine Allergy ALGY-Hives Verified 05/05/25 10:38 Review of Systems General: Reports: 10 or more systems reviewed and unremarkable except in HPI and below Const: Reports: fatigue, malaise and other (high BS); Denies: fever(s) or chills Eyes: Denies: change in vision ENMT: Denies: throat pain, ear or mastoid pain or nasal discharge Card: Denies: chest pain, palpitations, swelling of feet/ankles or lightheadedness Resp: Denies: dyspnea, productive cough or wheezing GI: Reports: nausea and vomiting; Denies: abdominal pain, diarrhea or constipation : Denies: flank pain, difficulty voiding, dysuria or urinary frequency Musc: Denies: neck pain, back pain or joint pain Skin/Breast: Denies: rash Neuro: Denies: headache(s), numbness in extremities or weakness in extremities PFSH ED PFSH: Medical History Major depression Frequent headaches Uncontrolled type 1 diabetes mellitus 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 COVID-24 Jun 2020 Hyperlipidemia FH: cholecystectomy Surgical History History of partial hysterectomy Family History Father Stroke Mother Diabetes Social History Smoking and tobacco/nicotine status: never used tobacco/nicotine Second hand smoke exposure: No Alcohol intake: never Substance/Drug Use: never Adopted: No Caregiver/support person: No Lives independently: Yes Household members: spouse Housing: House Marital status: Number of children: 3 Highest education level completed: Associate Degree: Occupational, Technical, Vocational Program service: No Current occupational status: employed Pets and animals: Yes Sexually active: Yes Do you think of yourself as: Straight/Heterosexual Current gender identity: Female Physical Exam Const: COMMON NORMALS: patient oriented x3 and no limitations GENERAL APPEARANCE: cooperative ORIENTATION/CONSCIOUSNESS: Yes awake, Yes oriented to person, Yes oriented to place and Yes oriented to time OTHER: Tired appearing HENMT: COMMON NORMALS: normocephalic, atraumatic and hearing grossly normal bilaterally HEAD & SCALP: normocephalic and atraumatic Eye: COMMON NORMALS: Equal, round and reactive pupils present, EOMs intact bilaterally and conjunctivae normal CONJUNCTIVA: Yes conjunctivae normal PUPIL: Yes Equal, round and reactive pupils present Neck/C-Spine: COMMON NORMALS: full ROM, supple and no JVD Resp: COMMON NORMALS: normal respiratory effort, No retractions, No use of accessory muscles and clear to auscultation bilaterally AUSCULTATION: clear to auscultation bilaterally Cardio: COMMON NORMALS: no JVD, regular rhythm, No clicks present (Cardio), No murmurs present (Cardio) and No rub (Cardio) RATE: tachycardic RHYTHM: regular rhythm GI: COMMON NORMALS: Normal to inspection, nondistended, normoactive bowel sounds present, Soft to palpation and non-tender AUSCULTATION: Yes normoactive bowel sounds PALPATION: Yes Soft to palpation RECTAL EXAM: deferred Extremity: COMMON NORMALS: normal to inspection, full ROM and capillary refill normal Neuro: COMMON NORMALS: patient oriented x3, moves all extremities, no focal motor deficits and no sensory deficits noted SENSORIUM/ORIENTATION: Yes oriented to person, Yes oriented to place and Yes oriented to time Skin: COMMON NORMALS: no rashes or lesions noted GENERAL SKIN EXAM: no rashes or lesions noted Course Vital Signs: Vital signs: Vital Signs Temperature 97.4 F L 05/05/25 10:29 Pulse Rate 107 H 05/05/25 10:29 Respiratory Rate 22 H 05/05/25 10:29 Blood Pressure 135/71 05/05/25 10:29 Pulse Oximetry 98 05/05/25 10:29 Oxygen Delivery Me thod Room Air 05/05/25 10:29 MDM - General Adult Medical Decision Making Patient presented with nausea vomiting, history of type 1 diabetes stating that she think she is in DKA. Her Dexcom has been malfunctioning for a week, states that she is currently trying to have a transmitter replaced but essentially thinks that she has not been getting insulin over this timeframe. Tachycardic here and tired appearing but otherwise nontoxic, appearing slightly dehydrated. ABG is showing that there is evidence of metabolic acidosis with anion gap of 29.7. Serum ketones are positive, leukocytosis with left shift and ketonuria all indicating that this patient is in DKA. Mild hyperkalemia as well with sodium of 128. Her EKG unable to be obtained as patient denied this due to cost purposes, she also denied chest x-ray. DKA protocol indicated and she is on insulin titratable drip after being given bolus of fluids. Spoke to hospitalist, Dr. Oh, who is accepting patient to the ICU. Patient also agrees with this plan. Dr. Smith had been briefed on this patient previously and agrees with disposition, will place admit orders. Lab Data 05/05/25 11:05 05/05/25 11:05 Laboratory Results WBC 16.51 10^3/uL (3.29-11.43) H 05/05/25 11:05 RBC 4.55 10^6/uL (3.85-5.65) 05/05/25 11:05 Hgb 12.20 g/dL (11.27-16.99) 05/05/25 11:05 Hct 38.7 % (36-47) 05/05/25 11:05 MCV 85.1 fl (85-98) 05/05/25 11:05 MCH 26.8 pg (27-33) L 05/05/25 11:05 MCHC 31.5 g/dL (30-55) 05/05/25 11:05 RDW 13.4 % (12.1-15.1) 05/05/25 11:05 Plt Count 240 10^3/cmm (157-399) 05/05/25 11:05 MPV 11.0 fL (7.4-10.4) H 05/05/25 11:05 Neut % (Auto) 86.2 % 05/05/25 11:05 Lymph % (Auto) 9.9 % 05/05/25 11:05 [place] % (Auto) 2.4 % 05/05/25 11:05 Eos % (Auto) 0.5 % 05/05/25 11:05 Baso % (Auto) 0.5 % 05/05/25 11:05 Neut # (Auto) 14.20 10^3/uL (1.8-7.7) H 05/05/25 11:05 Lymph # (Auto) 1.6 10^3/uL (0.8-4.8) 05/05/25 11:05 [place] # (Auto) 0.4 10^3/uL (0.2-0.9) 05/05/25 11:05 Eos # (Auto) 0.1 10^3/uL (0.0-0.8) 05/05/25 11:05 Baso # (Auto) 0.1 10^3/uL (0.0-0.1) 05/05/25 11:05 Nucleated RBC % (auto) 0 % 05/05/25 11:05 Nucleated RBCs # 0.0 /100WBC 05/05/25 11:05 ESR 51 mm/hr (0-15) H 05/05/25 11:05 Specimen Type Arterial 05/05/25 11:25 Sample Site Radial, right 05/05/25 11:25 ABG pH 7.23 (7.35-7.45) L 05/05/25 11:25 ABG pCO2 37.2 mmHg (35-45) 05/05/25 11:25 ABG pO2 89.2 mmHg (80.0-100.0) 05/05/25 11:25 ABG PO2/FiO2 Ratio 424 05/05/25 11:25 ABG HCO3 15.6 mmol/L (22-26) L 05/05/25 11:25 ABG O2 Saturation 95.9 05/05/25 11:25 ABG Base Excess -11.1 mmol/L (-2.0-2.0) L 05/05/25 11:25 Genaro Test Pos 05/05/25 11:25 A-a O2 Gradient 2.0 mmHg (5-10) L 05/05/25 11:25 Hematocrit 35.5 % (37-47) L 05/05/25 11:25 Hgb O2 Saturation 94.6 % (95-100) L 05/05/25 11:25 Carboxyhemoglobin 0.6 %THgb (0.4-20.1) 05/05/25 11:25 Methemoglobin 0.8 % (0.4-1.5) 05/05/25 11:25 Total Hemoglobin 11.6 g/dL (12-16) L 05/05/25 11:25 Sodium 131.0 mmol/L (131-143) 05/05/25 11:25 Potassium 5.4 mmol/L (3.5-5.0) H 05/05/25 11:25 Glucose 632.0 mg/dL (70-115) H 05/05/25 11:25 Ionized Calcium 1.2 mmol/L (1.1-1.4) 05/05/25 11:25 O2 Delivery Device Room air 05/05/25 11:25 FiO2 21.0 % 05/05/25 11:25 Rand Cementer ID Gd 05/05/25 11:25 Sodium 128 mmol/L (136-145) L 05/05/25 11:05 Potassium 5.7 mmol/L (3.5-5.1) H 05/05/25 11:05 Chloride 88 mmol/L (98-107) L 05/05/25 11:05 Carbon Dioxide 16 mmol/L (22-29) L 05/05/25 11:05 Anion Gap 29.7 (5-19) H 05/05/25 11:05 BUN 38 mg/dL (6-20) H 05/05/25 11:05 Creatinine 1.2 mg/dL (0.5-0.9) H 05/05/25 11:05 GFR Calculation 47.2 mL/min (90-130) L 05/05/25 11:05 Glucose 656 mg/dL (65-115) H* 05/05/25 11:05 POC Glucose 582 mg/dL (70-110) H* 05/05/25 11:38 Calculated Osmolality 306 mOsm/kg (285-295) H 05/05/25 11:05 Calcium 9.7 mg/dL (8.5-10.5) 05/05/25 11:05 Magnesium 2.1 mg/dL (1.7-2.3) 05/05/25 11:05 Total Bilirubin 0.5 mg/dL (0.15-1.2) 05/05/25 11:05 AST 34 U/L (0-32) H 05/05/25 11:05 ALT 32 U/L (0-33) 05/05/25 11:05 Alkaline Phosphatase 144 U/L (35-105) H 05/05/25 11:05 C-Reactive Protein 20.1 mg/L (0.0-4.9) H 05/05/25 11:05 Total Protein 7.4 g/dL (6.6-8.7) 05/05/25 11:05 Albumin 4.1 g/dL (3.5-5.2) 05/05/25 11:05 Globulin 3.3 g/dL (1.3-4.6) 05/05/25 11:05 Procalcitonin 0.32 ng/mL (0-0.5) 05/05/25 11:05 Urine Color Yellow (Yellow) 05/05/25 10:45 Urine Appearance Cloudy (CLEAR) A 05/05/25 10:45 Urine pH 5.0 (5-7) 05/05/25 10:45 Ur Specific Festus 1.028 (1.005-1.030) 05/05/25 10:45 Urine Protein Negative (Negative) 05/05/25 10:45 Urine Glucose (UA) 3+ (Normal) H 05/05/25 10:45 Urine Ketones 2+ (Negative) H 05/05/25 10:45 Urine Blood Negative (Negative) 05/05/25 10:45 Urine Nitrate Negative (Negative) 05/05/25 10:45 Urine Bilirubin Negative (Negative) 05/05/25 10:45 Urine Urobilinogen 0.2 mg/dL (Negative) 05/05/25 10:45 Ur Leukocyte Esterase Negative (Negative) 05/05/25 10:45 Urine RBC 0-2 /hpf (0-2) 05/05/25 10:45 Urine WBC 0-5 /hpf (0-5) 05/05/25 10:45 Ur Squamous Epith Cells 11-20 /hpf (0-5) H 05/05/25 10:45 Amorphous Sediment Not Reportable 05/05/25 10:45 Urine Bacteria 1+ /hpf (NONE) H 05/05/25 10:45 Hyaline Casts 17.37 /lpf 05/05/25 10:45 Urine Yeast 1+ /hpf H 05/05/25 10:45 Serum Ketones Positive (Negative) H 05/05/25 11:05 No radiology studies performed this visit Discharge Plan Discharge Patient Disposition: Admitted As Inpatient Admit Provider: Ethan Oh Clinical Impression: DKA (diabetic ketoacidoses) Condition: Stable Coding Level of Care Code 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 [employer] Documented by User: Dom Smith MD 05/05/25 12:26 HPI - General Adult General: Chief complaint: General Medical Stated complaint: high BS Time Seen by Provider: 05/05/25 10:26 Related Data Home Medications ?Medication ?Instructions ?Recorded ?Confirmed venlafaxine 75 mg tablet 75 mg PO BID 06/11/24 05/05/25 pregabalin 150 mg capsule 150 mg PO BID 11/21/24 05/05/25 celecoxib 200 mg capsule 200 mg PO BID 05/05/25 05/05/25 Previous Rx's ?Medication ?Instructions ?Recorded 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,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,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 ea 11/24/20 (Dexcom G6 Master Certified Rv Technician) Cam boot to right #1 ea 12/31/22 Wheelchair with elevated right #1 ea 12/31/22 foot rest rizatriptan 10 mg tablet See Rx Instructions PO .COMPLEX 01/06/23 #14 tabs ROSEBUD Boot to right #1 ea 05/04/23 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 transmitter (Dexcom #1 ea 05/04/23 G6 Transmitter device) Humalog U-100 Insulin 100 unit/mL See Rx Instructions .Route 05/16/23 subcutaneous solution (insulin .COMPLEX #140 mL lispro) 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 sensor (Dexcom G6 #6 ea 03/19/24 Sensor device) Articulating AFO to the left #1 ea 06/11/24 Custom insoles 1 to right #1 ea 06/11/24 Diabetic Shoes with Custom Molded #1 ea 06/29/24 Orthotics mupirocin 2 % topical ointment 1 applic topical TID #15 grams 09/10/24 Allergies Allergy/AdvReac Type Severity Reaction Status Date / Time morphine Allergy ALGY-Hives Verified 05/05/25 10:38 PFSH ED PFSH: Medical History Major depression Frequent headaches Uncontrolled type 1 diabetes mellitus 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 COVID-24 Jun 2020 Hyperlipidemia FH: cholecystectomy Surgical History History of partial hysterectomy Family History Father Stroke Mother Diabetes Social History Smoking and tobacco/nicotine status: never used tobacco/nicotine Second hand smoke exposure: No Alcohol intake: never Substance/Drug Use: never Adopted: No Caregiver/support person: No Lives independently: Yes Household members: spouse Housing: House Marital status: Number of children: 3 Highest education level completed: Associate Degree: Occupational, Technical, Vocational Program service: No Current occupational status: employed Pets and animals: Yes Sexually active: Yes Do you think of yourself as: Straight/Heterosexual Current gender identity: Female Course Vital Signs: Vital signs: Vital Signs Temperature 97.4 F L 05/05/25 10:29 Pulse Rate 107 H 05/05/25 10:29 Respiratory Rate 22 H 05/05/25 10:29 Blood Pressure 135/71 05/05/25 10:29 Pulse Oximetry 98 05/05/25 10:29 Oxygen Delivery Me thod Room Air 05/05/25 10:29 MDM - General Adult Medical Decision Making Patient presented with nausea vomiting, history of type 1 diabetes stating that she think she is in DKA. Her Dexcom has been malfunctioning for a week, states that she is currently trying to have a transmitter replaced but essentially thinks that she has not been getting insulin over this timeframe. Tachycardic here and tired appearing but otherwise nontoxic, appearing slightly dehydrated. ABG is showing that there is evidence of metabolic acidosis with anion gap of 29.7. Serum ketones are positive, leukocytosis with left shift and ketonuria all indicating that this patient is in DKA. Mild hyperkalemia as well with sodium of 128. Her EKG unable to be obtained as patient denied this due to cost purposes, she also denied chest x-ray. DKA protocol indicated and she is on insulin titratable drip after being given bolus of fluids. Spoke to hospitalist, Dr. Oh, who is accepting patient to the ICU. Patient also agrees with this plan. Dr. Smith had been briefed on this patient previously and agrees with disposition, will place admit orders. I saw patient with above midlevel agree with the history and physical she is currently in DKA and insulin drip was started and fluids will admit to the ICU to Dr. Mcfarlane critical care time 40 minutes The high probability of a clinically significant, sudden or life threatening deterioration of the patient's endocrine system(s) required my full and direct attention, intervention and personal management. The critical care time is as shown. This time is in addition to time spent performing any reported procedures but includes the following: [x] Data and vital sign review and interpretation [x] Patient assessment, examination and intervention [x] Documentation [x] Medication orders and management Lab Data 05/05/25 11:05 05/05/25 11:05 Laboratory Results WBC 16.51 10^3/uL (3.29-11.43) H 05/05/25 11:05 RBC 4.55 10^6/uL (3.85-5.65) 05/05/25 11:05 Hgb 12.20 g/dL (11.27-16.99) 05/05/25 11:05 Hct 38.7 % (36-47) 05/05/25 11:05 MCV 85.1 fl (85-98) 05/05/25 11:05 MCH 26.8 pg (27-33) L 05/05/25 11:05 MCHC 31.5 g/dL (30-55) 05/05/25 11:05 RDW 13.4 % (12.1-15.1) 05/05/25 11:05 Plt Count 240 10^3/cmm (157-399) 05/05/25 11:05 MPV 11.0 fL (7.4-10.4) H 05/05/25 11:05 Neut % (Auto) 86.2 % 05/05/25 11:05 Lymph % (Auto) 9.9 % 05/05/25 11:05 [place] % (Auto) 2.4 % 05/05/25 11:05 Eos % (Auto) 0.5 % 05/05/25 11:05 Baso % (Auto) 0.5 % 05/05/25 11:05 Neut # (Auto) 14.20 10^3/uL (1.8-7.7) H 05/05/25 11:05 Lymph # (Auto) 1.6 10^3/uL (0.8-4.8) 05/05/25 11:05 [place] # (Auto) 0.4 10^3/uL (0.2-0.9) 05/05/25 11:05 Eos # (Auto) 0.1 10^3/uL (0.0-0.8) 05/05/25 11:05 Baso # (Auto) 0.1 10^3/uL (0.0-0.1) 05/05/25 11:05 Nucleated RBC % (auto) 0 % 05/05/25 11:05 Nucleated RBCs # 0.0 /100WBC 05/05/25 11:05 ESR 51 mm/hr (0-15) H 05/05/25 11:05 Specimen Type Arterial 05/05/25 11:25 Sample Site Radial, right 05/05/25 11:25 ABG pH 7.23 (7.35-7.45) L 05/05/25 11:25 ABG pCO2 37.2 mmHg (35-45) 05/05/25 11:25 ABG pO2 89.2 mmHg (80.0-100.0) 05/05/25 11:25 ABG PO2/FiO2 Ratio 424 05/05/25 11:25 ABG HCO3 15.6 mmol/L (22-26) L 05/05/25 11:25 ABG O2 Saturation 95.9 05/05/25 11:25 ABG Base Excess -11.1 mmol/L (-2.0-2.0) L 05/05/25 11:25 Genaro Test Pos 05/05/25 11:25 A-a O2 Gradient 2.0 mmHg (5-10) L 05/05/25 11:25 Hematocrit 35.5 % (37-47) L 05/05/25 11:25 Hgb O2 Saturation 94.6 % (95-100) L 05/05/25 11:25 Carboxyhemoglobin 0.6 %THgb (0.4-20.1) 05/05/25 11:25 Methemoglobin 0.8 % (0.4-1.5) 05/05/25 11:25 Total Hemoglobin 11.6 g/dL (12-16) L 05/05/25 11:25 Sodium 131.0 mmol/L (131-143) 05/05/25 11:25 Potassium 5.4 mmol/L (3.5-5.0) H 05/05/25 11:25 Glucose 632.0 mg/dL (70-115) H 05/05/25 11:25 Ionized Calcium 1.2 mmol/L (1.1-1.4) 05/05/25 11:25 O2 Delivery Device Room air 05/05/25 11:25 FiO2 21.0 % 05/05/25 11:25 Rand Cementer ID Gd 05/05/25 11:25 Sodium 128 mmol/L (136-145) L 05/05/25 11:05 Potassium 5.7 mmol/L (3.5-5.1) H 05/05/25 11:05 Chloride 88 mmol/L (98-107) L 05/05/25 11:05 Carbon Dioxide 16 mmol/L (22-29) L 05/05/25 11:05 Anion Gap 29.7 (5-19) H 05/05/25 11:05 BUN 38 mg/dL (6-20) H 05/05/25 11:05 Creatinine 1.2 mg/dL (0.5-0.9) H 05/05/25 11:05 GFR Calculation 47.2 mL/min (90-130) L 05/05/25 11:05 Glucose 656 mg/dL (65-115) H* 05/05/25 11:05 POC Glucose 582 mg/dL (70-110) H* 05/05/25 11:38 Calculated Osmolality 306 mOsm/kg (285-295) H 05/05/25 11:05 Calcium 9.7 mg/dL (8.5-10.5) 05/05/25 11:05 Magnesium 2.1 mg/dL (1.7-2.3) 05/05/25 11:05 Total Bilirubin 0.5 mg/dL (0.15-1.2) 05/05/25 11:05 AST 34 U/L (0-32) H 05/05/25 11:05 ALT 32 U/L (0-33) 05/05/25 11:05 Alkaline Phosphatase 144 U/L (35-105) H 05/05/25 11:05 C-Reactive Protein 20.1 mg/L (0.0-4.9) H 05/05/25 11:05 Total Protein 7.4 g/dL (6.6-8.7) 05/05/25 11:05 Albumin 4.1 g/dL (3.5-5.2) 05/05/25 11:05 Globulin 3.3 g/dL (1.3-4.6) 05/05/25 11:05 Procalcitonin 0.32 ng/mL (0-0.5) 05/05/25 11:05 Urine Color Yellow (Yellow) 05/05/25 10:45 Urine Appearance Cloudy (CLEAR) A 05/05/25 10:45 Urine pH 5.0 (5-7) 05/05/25 10:45 Ur Specific Fest[place] 1.028 (1.005-1.030) 05/05/25 10:45 Urine Protein Negative (Negative) 05/05/25 10:45 Urine Glucose (UA) 3+ (Normal) H 05/05/25 10:45 Urine Ketones 2+ (Negative) H 05/05/25 10:45 Urine Blood Negative (Negative) 05/05/25 10:45 Urine Nitrate Negative (Negative) 05/05/25 10:45 Urine Bilirubin Negative (Negative) 05/05/25 10:45 Urine Urobilinogen 0.2 mg/dL (Negative) 05/05/25 10:45 Ur Leukocyte Esterase Negative (Negative) 05/05/25 10:45 Urine RBC 0-2 /hpf (0-2) 05/05/25 10:45 Urine WBC 0-5 /hpf (0-5) 05/05/25 10:45 Ur Squamous Epith Cells 11-20 /hpf (0-5) H 05/05/25 10:45 Amorphous Sediment Not Reportable 05/05/25 10:45 Urine Bacteria 1+ /hpf (NONE) H 05/05/25 10:45 Hyaline Casts 17.37 /lpf 05/05/25 10:45 Urine Yeast 1+ /hpf H 05/05/25 10:45 Serum Ketones Positive (Negative) H 05/05/25 11:05 Critical Care Time Critical Care Time: Critical Care Time: Yes Total Critical Care Time: 40 Attestation: The high probability of a clinically significant, sudden or life threatening deterioration of the patient's endocrine system(s) required my full and direct attention, intervention and personal management. The critical care time is as shown. 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
[2025-05-05 10:54] LABS: Glucose Urine UA 3+ (Normal); Nitrate Urine Negative (Negative); Specific Gravity, Urine 1.028 (1.005-1.030)
[2025-05-05 10:59] LABS: Add Urine Microscopic? YES
[2025-05-05] MEDS: ondansetron 2 mg/ML SDV 2 mL 4 MG IVP (11:11)
[2025-05-05 11:13] LABS: Hematocrit 38.7 % (36-47); Hemoglobin 12.20 g/dL (11.27-16.99); Mean Corpuscular HGB Conc 31.5 g/dL (30-55); Mean Corpuscular Hemoglobin 26.8 pg (27-33); Mean Corpuscular Volume 85.1 fl (85-98); Nucleated Red Blood Cells % 0 %; Platelet Count 240 10^3/cmm (157-399); Red Blood Count 4.55 10^6/uL (3.85-5.65); White Blood Count 16.51 10^3/uL (3.29-11.43)
[2025-05-05 11:18] LABS: UA Slide Review UA Slide Review Perf
--- NOTE | 2025-05-05 11:19 | PC.NURSE ---
pt refused EKG d/t cost issues. pt educated on the need for EKG, pt still declined. CHER Duenas notified.
[2025-05-05 11:23] LABS: Ketone (Acetest) Serum Positive (Negative)
[2025-05-05 11:29] LABS: Alanine Aminotransferase 32 U/L (0-33); Albumin Level 4.1 g/dL (3.5-5.2); Alkaline Phosphatase 144 U/L (35-105); Anion Gap 29.7 (5-19); Aspartate Amino Transferase 34 U/L (0-32); Blood Urea Nitrogen 38 mg/dL (6-20); Calcium 9.7 mg/dL (8.5-10.5); Carbon Dioxide 16 mmol/L (22-29); Chloride 88 mmol/L (98-107); Creatinine Clr Calc Pharmacy 69.7295; Globulin 3.3 g/dL (1.3-4.6); Magnesium 2.1 mg/dL (1.7-2.3); Osmolality Calculated 306 mOsm/kg (285-295); Potassium 5.7 mmol/L (3.5-5.1); Sodium 128 mmol/L (136-145); Total Protein 7.4 g/dL (6.6-8.7)
[2025-05-05 11:31] LABS: Glucose 656 mg/dL (65-115)
[2025-05-05 11:43] LABS: ABG PCO2 37.2 mmHg (35-45); ABG PH Result 7.23 (7.35-7.45); Alveolar-Arterial Oxygen Gradi 2.0 mmHg (5-10); Arterial Blood Gas Hematocrit 35.5 % (37-47); Blood Gas Allen Test Pos; Blood Gas Operator Identificat GD; Blood Gas Sample Site Radial, right; Blood Gas Sample Type Arterial; Carboxyhemoglobin 0.6 %THgb (0.4-20.1); Glucose Level-ABG 632.0 mg/dL (70-115); HCO3 ABG 15.6 mmol/L (22-26); Ionized Calcium Level - ABG 1.2 mmol/L (1.1-1.4); Methemoglobin 0.8 % (0.4-1.5); Oxygen Saturation ABG 95.9; PO2 ABG 89.2 mmHg (80.0-100.0); PO2 FiO2 Ratio Arterial Blood 424; Potassium Level - ABG 5.4 mmol/L (3.5-5.0); Sodium Level - ABG 131.0 mmol/L (131-143)
[2025-05-05] MEDS: INSULIN REGULAR IN 0.9 % NACL 100 UNIT/100 ML BAG 10 UNIT IV (11:53)
[2025-05-05 12:23] LABS: Procalcitonin 0.32 ng/mL (0-0.5)
--- NOTE | 2025-05-05 12:58 | P.HP_ITS ---
Providers/Chief Complaint 2 Admitting Physician: Ethan Oh MD Primary Care Provider: Steve Lerma MD Chief Complaint: high BS History of Present Illness Latosha Hammonds is a 54 year old female with a past medical history of type 1 diabetes who presents to [facility] due to nausea, vomiting, fatigue, malaise, with elevated blood sugars. Patient tells me that she has been having issues with her Dexcom and her insurance company covering her Dexcom, so she has not been able to check her blood sugar for the last week, she has been having nausea, vomiting, fatigue, malaise, no history of diabetic ulcers, no current diabetic ulcers, no chest pain, no palpitations, no fevers, no cough, no dysuria, no hematuria Review of Systems 2 Const: Reports: fatigue and malaise Card: Denies: chest pain Resp: Denies: dyspnea GI: Reports: abdominal pain, nausea and vomiting Medications/Allergies Home Medications ?Medication ?Instructions ?Recorded ?Confirmed ?Last Taken ?Type 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,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,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 #1 ea 11/24/20 05/05/25 Un known Rx (Dexcom G6 Conference Director) Cam boot to right #1 ea 12/31/22 05/05/25 Unkn own Rx Wheelchair with elevated right #1 ea 12/31/22 05/05/25 Unknown Rx foot rest rizatriptan 10 mg tablet See Rx Instructions PO .COMP PADILLA 01/06/23 05/05/25 01/06/23 Rx #14 tabs OUZINKIE Boot to right #1 ea 05/04/23 05/05/25 Unkn own Rx 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 transmitter (Dexcom #1 ea 05/04/2305/05 Unknown Rx G6 Transmitter device) Humalog U-100 Insulin 100 unit/mL See Rx Instructions .Route 05/16/23 05/05/25 05/04/25 Rx subcutaneous solution (insulin .COMPLEX #140 mL lispro) 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 sensor (Dexcom G6 #6 ea 03/19/24 5 Unknown Rx Sensor device) Articulating AFO to the left #1 ea 06/11/24 05/05/25 U nknown Rx Custom insoles 1 to right #1 ea 06/11/24 05/05/25 Unkn own Rx venlafaxine 75 mg tablet 75 mg PO BID 06/11/2405/04/25 History Diabetic Shoes with Custom Molded #1 ea 06/29/2405/05 Unknown Rx Orthotics mupirocin 2 % topical ointment 1 applic topical TID #1 5 grams 09/10/24 05/05/25 Unknown Rx pregabalin 150 mg capsule 150 mg PO BID 11/21/2405/0505/04/25 History celecoxib 200 mg capsule 200 mg PO BID 05/05/2505/0505/04/25 History Allergies Allergy/AdvReac Type Severity Reaction Status Date / Time morphine Allergy ALGY-Hives Verified 05/05/25 10:38 PFSH Acute 2 PFSH: Medical History Major depression Frequent headaches Uncontrolled type 1 diabetes mellitus 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 COVID-24 Jun 2020 Hyperlipidemia FH: cholecystectomy Surgical History History of partial hysterectomy Family History Father Stroke Mother Diabetes Social History Smoking and tobacco/nicotine status: never used tobacco/nicotine Second hand smoke exposure: No Alcohol intake: never Substance/Drug Use: never Adopted: No Caregiver/support person: No Lives independently: Yes Household members: spouse Housing: House Marital status: Number of children: 3 Highest education level completed: Associate Degree: Occupational, Technical, Vocational Program service: No Current occupational status: employed Pets and animals: Yes Sexually active: Yes Do you think of yourself as: Straight/Heterosexual Current gender identity: Female Vitals/I&O/Wt Last Vital Signs Temp 97.4 F L 05/05/25 10:29 Pulse 107 H 05/05/25 10:29 Resp 22 H 05/05/25 10:29 BP 135/71 05/05/25 10:29 Pulse Ox 98 05/05/25 10:29 O2 Del Method Room Air 05/05/25 10:29 05/04/25 05/05/25 05/05/25 22:59 06:59 14:59 Intake Total 1000 / 1000 Balance 1000 / 1000 Weight last 48 hrs Weight 102.058 kg Physical Exam 2 Const: COMMON NORMALS: no acute distress and patient oriented x3 Eye: COMMON NORMALS: Equal, round and reactive pupils present and EOMs intact bilaterally Resp: COMMON NORMALS: normal respiratory effort, No retractions, No use of accessory muscles and clear to auscultation bilaterally AUSCULTATION: clear to auscultation bilaterally Cardio: COMMON NORMALS: regular rate, regular rhythm, S1 normal heart sound present and S2 normal heart sound present RATE: regular rate RHYTHM: r egular rhythm HEART SOUNDS: S1 normal heart sound present and S2 normal heart sound present GI: COMMON NORMALS: Normal to inspection, nondistended, normoactive bowel sounds present, Soft to palpation and non-tender Extremity: COMMON NORMALS: no pedal edema Neuro: COMMON NORMALS: patient oriented x3, CN's II-XII intact bilaterally and moves all extremities Psych: COMMON NORMALS: mental status grossly normal Skin: NARRATIVE SKIN EXAM: Bilateral feet, no diabetic foot infections, ulcers there is right about the Data 05/05/25 11:05 05/05/25 11:05 Micro: Microbiology 05/05/25 12:13 Blood Culture - Preliminary Blood SPECIMEN COLLECTED 05/05/25 12:11 Blood Culture - Preliminary Blood SPECIMEN COLLECTED A&P Assessment and plan 1. DKA, type 1: 2. Uncontrolled type 1 diabetes mellitus: Plan: Diabetic ketoacidosis Plan - DKA protocol - Normal saline at 150 cc an hour - Once blood sugar is less than 200 switch to D5 half-normal saline with 20 KCl - Monitor blood sugars hourly - BMP every 4 hours - Insulin drip protocol - Once anion gap closes, switch to subcu insulin, Lantus - She has her insulin pump, currently off, will likely resume on discharge - Will have to discuss with case management about patient's Dexcom Full code Lovenox for DVT prophylaxis PDMP PDMP Reviewed: Not Reviewed Attestations 2 Medical Necessity Statement*: Patient requires hospitalization for diabetic ketoacidosis, inpatient, greater than 2 midnights Coding Level of Care Code Critical Care >/= 30 minutes Critical care time (in minutes): 35 The high probability of a clinically significant, sudden or life threatening deterioration, as referenced in this documentation, required my full and direct attention, intervention and personal management. The critical care time shown is in addition to time spent performing any reported separately billable procedures and includes the following: [x] Data and vital sign review and interpretation [x ] Patient assessment, examination and intervention [x] Medication orders and management [x] Patient/Family updates as able [x] Care Coordination and Documentation. Diagnoses DKA, type 1 E10.10 Uncontrolled type 1 diabetes mellitus
[2025-05-05 13:13] LABS: Estmated Average Glucose 278; Hemoglobin A1C 11.3 % (4.0-6.0)
[2025-05-05] MEDS: pantoprazole 40 mg SDV IVP (13:19)
[2025-05-05] MEDS: cefTRIAXone 1,000 mg SDV 1000 MG IVP (13:21)
[2025-05-05 13:22] LABS: Cholesterol 196 mg/dL (0-200); Thyroid Stimulating Hormone 1.14 uIU/mL (0.27-4.20)
[2025-05-05 13:32] LABS: HDL Cholesterol 51 mg/dL (60-100); Triglycerides 170 mg/dL (0-150)
[2025-05-05 13:35] LABS: Respiratory Syncytial Virus Ce NEGATIVE (Negative); SARS-CoV-2 PCR NEGATIVE (Negative)
[2025-05-05 13:53] LABS: Lactic Sepsis W/Reflex 2.8 mmol/L (0.5-2.2)
[2025-05-05 13:56] LABS: Reflex Lactate Order REFLEX LACTIC ORDERD
[2025-05-05 14:06] LABS: Anion Gap 28.7 (5-19); Blood Urea Nitrogen 35 mg/dL (6-20); Calcium 8.8 mg/dL (8.5-10.5); Carbon Dioxide 11 mmol/L (22-29); Chloride 97 mmol/L (98-107); Glucose 444 mg/dL (65-115); Osmolality Calculated 301 mOsm/kg (285-295); Potassium 4.7 mmol/L (3.5-5.1); Sodium 132 mmol/L (136-145)
[2025-05-05 14:50] LABS: Lactic Acid level (Lactate) 2.5 mmol/L (0.5-2.2)
[2025-05-05] MEDS: D5-NS 0.45% + KCL 20 mEq 20 MEQ/1,000 ML BAG 150 MEQ IV ×2 (16:27→23:11)
[2025-05-05] MEDS: INSULIN REGULAR IN 0.9 % NACL 100 UNIT/100 ML BAG 7 UNIT IV (17:46)
--- NOTE | 2025-05-05 18:17 | PC.NURSE ---
chem drawn and pending at this time accucheck with sliding scale insulin down to 1 per protocol, pm home meds taken as per doctor order them med placed in icu bin for am med pass
[2025-05-05 18:49] LABS: Anion Gap 15.5 (5-19); Blood Urea Nitrogen 34 mg/dL (6-20); Calcium 8.9 mg/dL (8.5-10.5); Carbon Dioxide 22 mmol/L (22-29); Chloride 107 mmol/L (98-107); Glucose 150 mg/dL (65-115); Osmolality Calculated 300 mOsm/kg (285-295); Potassium 4.5 mmol/L (3.5-5.1); Sodium 140 mmol/L (136-145)
--- NOTE | 2025-05-05 19:00 | PC.NURSE ---
NPO with sips, chips, meds Order received from Dr. Oh to allow sips, chips, and meds while NPO.
[2025-05-05 22:13] LABS: Anion Gap 14.6 (5-19); Blood Urea Nitrogen 33 mg/dL (6-20); Calcium 8.7 mg/dL (8.5-10.5); Carbon Dioxide 22 mmol/L (22-29); Chloride 104 mmol/L (98-107); Glucose 191 mg/dL (65-115); Osmolality Calculated 294 mOsm/kg (285-295); Potassium 4.6 mmol/L (3.5-5.1); Sodium 136 mmol/L (136-145)
--- NOTE | 2025-05-05 22:47 | PC.NURSE ---
Anion Gap Dr. Ring notified of patient's recent anion gap and CO2 on her bmp. Physician to review chart and place orders.
[2025-05-06] VITALS (23 sets, daily range): BP systolic 105–141; BP diastolic 47–91; PULSE 86–104; RESP 14–20; TEMP 36.7–36.8; O2SAT 88–100
[2025-05-06] MEDS: insulin glargine 100 units/1 mL 20 UNIT SUBCUT (00:26)
--- NOTE | 2025-05-06 00:36 | PC.NURSE ---
Diet/nasal cannula Patient transitioning from IV insulin to subq insulin, no diet ordered; Dr. Ring contacted and order received for carb consist diet. Furthermore, patient's oxygen saturation decreasing to 75% while sleeping. When asked if patient had sleep apnea, patient stated that she had never been diagnosed but that she was pretty sure she had it. 2L NC placed on patient for sleeping. Dr. Ring notified.
--- NOTE | 2025-05-06 01:27 | PC.NURSE ---
Insulin Transition Order received from Dr. Ring to turn off insulin and dextrose drips at 0130, 1 hour after long-acting insulin was administered.
[2025-05-06 02:21] LABS: Blood Urea Nitrogen 31 mg/dL (6-20); Calcium 8.8 mg/dL (8.5-10.5); Carbon Dioxide 22 mmol/L (22-29); Chloride 104 mmol/L (98-107); Glucose 223 mg/dL (65-115); Osmolality Calculated 295 mOsm/kg (285-295); Sodium 136 mmol/L (136-145)
[2025-05-06 02:28] LABS: Anion Gap 14.6 (5-19); Potassium 4.6 mmol/L (3.5-5.1)
[2025-05-06 04:32] LABS: Hematocrit 37.1 % (36-47); Hemoglobin 11.50 g/dL (11.27-16.99); Mean Corpuscular HGB Conc 31.0 g/dL (30-55); Mean Corpuscular Hemoglobin 26.6 pg (27-33); Mean Corpuscular Volume 85.9 fl (85-98); Nucleated Red Blood Cells % 0 %; Platelet Count 205 10^3/cmm (157-399); Red Blood Count 4.32 10^6/uL (3.85-5.65); White Blood Count 9.20 10^3/uL (3.29-11.43)
[2025-05-06 04:57] LABS: Alanine Aminotransferase 23 U/L (0-33); Albumin Level 3.6 g/dL (3.5-5.2); Alkaline Phosphatase 110 U/L (35-105); Anion Gap 16.6 (5-19); Aspartate Amino Transferase 21 U/L (0-32); Blood Urea Nitrogen 29 mg/dL (6-20); Calcium 8.5 mg/dL (8.5-10.5); Carbon Dioxide 21 mmol/L (22-29); Chloride 103 mmol/L (98-107); Globulin 2.4 g/dL (1.3-4.6); Glucose 264 mg/dL (65-115); Magnesium 1.8 mg/dL (1.7-2.3); Osmolality Calculated 297 mOsm/kg (285-295); Potassium 4.6 mmol/L (3.5-5.1); Sodium 136 mmol/L (136-145); Total Protein 6.0 g/dL (6.6-8.7)
[2025-05-06 08:24] LABS: Anion Gap 16.7 (5-19); Blood Urea Nitrogen 28 mg/dL (6-20); Calcium 8.7 mg/dL (8.5-10.5); Carbon Dioxide 20 mmol/L (22-29); Chloride 102 mmol/L (98-107); Glucose 290 mg/dL (65-115); Osmolality Calculated 294 mOsm/kg (285-295); Potassium 4.7 mmol/L (3.5-5.1); Sodium 134 mmol/L (136-145)
[2025-05-06 12:31] LABS: Anion Gap 12.2 (5-19); Blood Urea Nitrogen 26 mg/dL (6-20); Calcium 8.7 mg/dL (8.5-10.5); Carbon Dioxide 24 mmol/L (22-29); Chloride 103 mmol/L (98-107); Glucose 302 mg/dL (65-115); Osmolality Calculated 296 mOsm/kg (285-295); Potassium 4.2 mmol/L (3.5-5.1); Sodium 135 mmol/L (136-145)
[2025-05-06] MEDS: cefTRIAXone 1,000 mg SDV 1000 MG IVP (13:17)
[2025-05-06] MEDS: water for injection-sterile 10 ML 100 ML (13:18)
--- NOTE | 2025-05-06 15:54 | P.PN_ITS ---
Subjective 2 Subjective: blood glucose was elevated wants to go home denies nausea Vitals/I&O/Wt Last Vital Signs Temp 98.1 F 05/06/25 04:00 Pulse 88 05/06/25 15:00 Resp 20 H 05/06/25 00:20 BP 130/74 05/06/25 15:00 Pulse Ox 95 05/06/25 15:00 O2 Del Method Room Air 05/06/25 10:07 O2 Flow Rate 2 05/06/25 06:00 05/06/25 05/06/25 05/06/25 06:59 14:59 22:59 Intake Total 1718.316 / 3798.199 480 / 480 Output Total 650 / 650 Balance 1068.316 / 3148.199 480 / 480 Weight last 48 hrs Weight 109 kg Weight 102.058 kg Weight 102.058 kg Physical Exam 2 Const: COMMON NORMALS: no acute distress and patient oriented x3 Eye: COMMON NORMALS: Equal, round and reactive pupils present and EOMs intact bilaterally PUPIL: Yes Equal, round and reactive pupils present Resp: COMMON NORMALS: normal respiratory effort, No retractions, No use of accessory muscles and clear to auscultation bilaterally AUSCULTATION: clear to auscultation bilaterally Cardio: COMMON NORMALS: regular rate, regular rhythm, S1 normal heart sound present and S2 normal heart sound present RATE: regular rate RHYTHM: r egular rhythm HEART SOUNDS: S1 normal heart sound present and S2 normal heart sound present GI: COMMON NORMALS: Normal to inspection, nondistended, normoactive bowel sounds present, Soft to palpation and non-tender PALPATION: Yes Soft to palpation Extremity: COMMON NORMALS: no pedal edema Neuro: COMMON NORMALS: patient oriented x3, CN's II-XII intact bilaterally and moves all extremities Psych: COMMON NORMALS: mental status grossly normal Skin: NARRATIVE SKIN EXAM: Bilateral feet, no diabetic foot infections, ulcers there is right about the Data 05/06/25 03:43 05/06/25 11:41 Micro: Microbiology 05/05/25 12:13 Blood Culture - Preliminary Blood NEGATIVE TO DATE 05/05/25 12:11 Blood Culture - Preliminary Blood NEGATIVE TO DATE A&P Assessment and plan 1. DKA (diabetic ketoacidoses): 2. Insulin long-term use: Plan: 1. pharmacy consult 2. fsbs, ssi, restart lantus 3. continue abx for possible UTI PDMP PDMP Reviewed: Not Reviewed Attestations 2 Medical Necessity Statement*: insulin Coding Level of Care Code Acute Code for Chg Fwd Diagnoses DKA (diabetic ketoacidoses) E11.10 Insulin long-term use Z79.4
[2025-05-06 16:37] LABS: Anion Gap 13.3 (5-19); Blood Urea Nitrogen 22 mg/dL (6-20); Calcium 8.7 mg/dL (8.5-10.5); Carbon Dioxide 22 mmol/L (22-29); Chloride 104 mmol/L (98-107); Glucose 216 mg/dL (65-115); Osmolality Calculated 290 mOsm/kg (285-295); Potassium 4.3 mmol/L (3.5-5.1); Sodium 135 mmol/L (136-145)
--- NOTE | 2025-05-06 18:18 | P.DS_ITS ---
Discharge Providers Date of Admission: 05/05/25 11:58 Date of Discharge: May 06, 2025 Attending Provider at Admission: Ethan Oh MD Attending Provider at Discharge: Winifred Schulte MD Primary Care Provider: Steve Lerma MD Diagnoses at Discharge Discharge Diagnosis 1. DKA (diabetic ketoacidoses): 2. Insulin long-term use: Reason for Visit Reason for Visit: high Hospital Course Hospital Course H&P: Latosha Hammonds is a 54 year old female with a past medical history of type 1 diabetes who presents to [facility] due to nausea, vomiting, fatigue, malaise, with elevated blood sugars. Patient tells me that she has been having issues with her Dexcom and her insurance company covering her Dexcom, so she has not been able to check her blood sugar for the last week, she has been having nausea, vomiting, fatigue, malaise, no history of diabetic ulcers, no current diabetic ulcers, no chest pain, no palpitations, no fevers, no cough, no dysuria, no hematuria Course: Patient was placed on DKA protocol. Insulin drip and fluids. Her labs improved. Blood sugars better. Transition to subcutaneous insulin. Diet was advanced. Discharged in stable condition Physical Exam Const: COMMON NORMALS: no acute distress and patient oriented x3 Eye: COMMON NORMALS: Equal, round and reactive pupils present and EOMs intact bilaterally PUPIL: Yes Equal, round and reactive pupils present Resp: COMMON NORMALS: normal respiratory effort, No retractions, No use of accessory muscles and clear to auscultation bilaterally AUSCULTATION: clear to auscultation bilaterally Cardio: COMMON NORMALS: regular rate, regular rhythm, S1 normal heart sound present and S2 normal heart sound present RATE: regular rate RHYTHM: regular rhythm HEART SOUNDS: S1 normal heart sound present and S2 normal heart sound present GI: COMMON NORMALS: Normal to inspection, nondistended, normoactive bowel sounds present, Soft to palpation and non-tender PALPATION: Yes Soft to palpation Extremity: COMMON NORMALS: no pedal edema Neuro: COMMON NORMALS: patient oriented x3, CN's II-XII intact bilaterally and moves all extremities Psych: COMMON NORMALS: mental status grossly normal Skin: NARRATIVE SKIN EXAM: Bilateral feet, no diabetic foot infections, ulcers there is right about the Discharge Data Studies Completed and Pending Pending at discharge Category Date Time Status BMP [Basic Metabolic Panel] Q4H Lab 05/06/25 19:43 Ordered Blood Culture Stat Lab 05/05/25 12:13 Results Complete Blood Count w/Auto AM LABS Lab 05/07/25 04:00 Ordered Complete Blood Count w/Auto AM LABS Lab 05/08/25 04:00 Ordered Comprehensive Metabolic Panel AM LABS Lab 05/07/25 04:00 Ordered Comprehensive Metabolic Panel AM LABS Lab 05/08/25 04:00 Ordered Magnesium AM LABS Lab 05/07/25 04:00 Ordered Magnesium AM LABS Lab 05/08/25 04:00 Ordered Phosphorus AM LABS Lab 05/07/25 04:00 Ordered Phosphorus AM LABS Lab 05/08/25 04:00 Ordered Laboratory Results WBC 9.20 10^3/uL (3.29-11.43) 05/06/25 03:43 RBC 4.32 10^6/uL (3.85-5.65) 05/06/25 03:43 Hgb 11.50 g/dL (11.27-16.99) 05/06/25 03:43 Hct 37.1 % (36-47) 05/06/25 03:43 MCV 85.9 fl (85-98) 05/06/25 03:43 MCH 26.6 pg (27-33) L 05/06/25 03:43 MCHC 31.0 g/dL (30-55) 05/06/25 03:43 RDW 13.6 % (12.1-15.1) 05/06/25 03:43 Plt Count 205 10^3/cmm (157-399) 05/06/25 03:43 MPV 10.8 fL (7.4-10.4) H 05/06/25 03:43 Neut % (Auto) 72.7 % 05/06/25 03:43 Lymph % (Auto) 19.0 % 05/06/25 03:43 Union % (Auto) 6.2 % 05/06/25 03:43 Eos % (Auto) 1.2 % 05/06/25 03:43 Baso % (Auto) 0.5 % 05/06/25 03:43 Neut # (Auto) 6.68 10^3/uL (1.8-7.7) 05/06/25 03:43 Lymph # (Auto) 1.8 10^3/uL (0.8-4.8) 05/06/25 03:43 Union # (Auto) 0.6 10^3/uL (0.2-0.9) 05/06/25 03:43 Eos # (Auto) 0.1 10^3/uL (0.0-0.8) 05/06/25 03:43 Baso # (Auto) 0.1 10^3/uL (0.0-0.1) 05/06/25 03:43 Nucleated RBC % (auto) 0 % 05/06/25 03:43 Nucleated RBCs # 0.0 /100WBC 05/06/25 03:43 ESR 51 mm/hr (0-15) H 05/05/25 11:05 Specimen Type Arterial 05/05/25 11:25 Sample Site Radial, right 05/05/25 11:25 ABG pH 7.23 (7.35-7.45) L 05/05/25 11:25 ABG pCO2 37.2 mmHg (35-45) 05/05/25 11:25 ABG pO2 89.2 mmHg (80.0-100.0) 05/05/25 11:25 ABG PO2/FiO2 Ratio 424 05/05/25 11:25 ABG HCO3 15.6 mmol/L (22-26) L 05/05/25 11:25 ABG O2 Saturation 95.9 05/05/25 11:25 ABG Base Excess -11.1 mmol/L (-2.0-2.0) L 05/05/25 11:25 Genaro Test Pos 05/05/25 11:25 A-a O2 Gradient 2.0 mmHg (5-10) L 05/05/25 11:25 Hematocrit 35.5 % (37-47) L 05/05/25 11:25 Hgb O2 Saturation 94.6 % (95-100) L 05/05/25 11:25 Carboxyhemoglobin 0.6 %THgb (0.4-20.1) 05/05/25 11:25 Methemoglobin 0.8 % (0.4-1.5) 05/05/25 11:25 Total Hemoglobin 11.6 g/dL (12-16) L 05/05/25 11:25 Sodium 131.0 mmol/L (131-143) 05/05/25 11:25 Potassium 5.4 mmol/L (3.5-5.0) H 05/05/25 11:25 Glucose 632.0 mg/dL (70-115) H 05/05/25 11:25 Ionized Calcium 1.2 mmol/L (1.1-1.4) 05/05/25 11:25 O2 Delivery Device Room air 05/05/25 11:25 FiO2 21.0 % 05/05/25 11:25 Technical Solutions Consultant ID Gd 05/05/25 11:25 Sodium 135 mmol/L (136-145) L 05/06/25 15:54 Potassium 4.3 mmol/L (3.5-5.1) 05/06/25 15:54 Chloride 104 mmol/L (98-107) 05/06/25 15:54 Carbon Dioxide 22 mmol/L (22-29) 05/06/25 15:54 Anion Gap 13.3 (5-19) 05/06/25 15:54 BUN 22 mg/dL (6-20) H 05/06/25 15:54 Creatinine 0.8 mg/dL (0.5-0.9) 05/06/25 15:54 GFR Calculation 75.3 mL/min (90-130) L 05/06/25 15:54 Glucose 216 mg/dL (65-115) H 05/06/25 15:54 POC Glucose 208 mg/dL (70-110) H 05/06/25 17:32 Estimat Average Glucose 278 05/05/25 11:05 Hemoglobin A1c 11.3 % (4.0-6.0) H 05/05/25 11:05 Calculated Osmolality 290 mOsm/kg (285-295) 05/06/25 15:54 Lactic Acid 2.8 mmol/L (0.5-2.2) H 05/05/25 11:05 Lactic Acid (Sepsis) 2.5 mmol/L (0.5-2.2) H 05/05/25 14:12 Calcium 8.7 mg/dL (8.5-10.5) 05/06/25 15:54 Phosphorus 2.8 mg/dL (2.5-4.5) 05/06/25 03:43 Magnesium 1.8 mg/dL (1.7-2.3) 05/06/25 03:43 Total Bilirubin 0.4 mg/dL (0.15-1.2) 05/06/25 03:43 AST 21 U/L (0-32) 05/06/25 03:43 ALT 23 U/L (0-33) 05/06/25 03:43 Alkaline Phosphatase 110 U/L (35-105) H 05/06/25 03:43 C-Reactive Protein 20.1 mg/L (0.0-4.9) H 05/05/25 11:05 Total Protein 6.0 g/dL (6.6-8.7) L 05/06/25 03:43 Albumin 3.6 g/dL (3.5-5.2) 05/06/25 03:43 Globulin 2.4 g/dL (1.3-4.6) 05/06/25 03:43 Triglycerides 170 mg/dL (0-150) H 05/05/25 11:05 Cholesterol 196 mg/dL (0-200) 05/05/25 11:05 LDL Cholesterol, Calc 111 mg/dL (50-129) 05/05/25 11:05 HDL Cholesterol 51 mg/dL (60-100) L 05/05/25 11:05 LDL/HDL Ratio 2.18 RATIO (0.00-3.22) 05/05/25 11:05 Cholesterol/HDL Ratio 3.84 mg/dL (0.0-4.40) 05/05/25 11:05 Procalcitonin 0.32 ng/mL (0-0.5) 05/05/25 11:05 TSH 1.14 uIU/mL (0.27-4.20) 05/05/25 11:05 Urine Color Yellow (Yellow) 05/05/25 10:45 Urine Appearance Cloudy (CLEAR) A 05/05/25 10:45 Urine pH 5.0 (5-7) 05/05/25 10:45 Ur Specific [place] 1.028 (1.005-1.030) 05/05/25 10:45 Urine Protein Negative (Negative) 05/05/25 10:45 Urine Glucose (UA) 3+ (Normal) H 05/05/25 10:45 Urine Ketones 2+ (Negative) H 05/05/25 10:45 Urine Blood Negative (Negative) 05/05/25 10:45 Urine Nitrate Negative (Negative) 05/05/25 10:45 Urine Bilirubin Negative (Negative) 05/05/25 10:45 Urine Urobilinogen 0.2 mg/dL (Negative) 05/05/25 10:45 Ur Leukocyte Esterase Negative (Negative) 05/05/25 10:45 Urine RBC 0-2 /hpf (0-2) 05/05/25 10:45 Urine WBC 0-5 /hpf (0-5) 05/05/25 10:45 Ur Squamous Epith Cells 11-20 /hpf (0-5) H 05/05/25 10:45 Amorphous Sediment Not Reportable 05/05/25 10:45 Urine Bacteria 1+ /hpf (NONE) H 05/05/25 10:45 Hyaline Casts 17.37 /lpf 05/05/25 10:45 Urine Yeast 1+ /hpf H 05/05/25 10:45 Serum Ketones Positive (Negative) H 05/05/25 11:05 Influenza A (PCR) Negative (Negative) 05/05/25 12:27 Influenza Type B (PCR) Negative (Negative) 05/05/25 12:27 RSV (PCR) Negative (Negative) 05/05/25 12:27 SARS-CoV-2 (PCR) Negative (Negative) 05/05/25 12:27 Vitals Last Vital Signs Temp 98.1 F 05/06/25 04:00 Pulse 94 05/06/25 18:00 Resp 16 05/06/25 18:00 BP 137/91 05/06/25 18:00 Pulse Ox 88 L 05/06/25 18:00 O2 Del Method Room Air 05/06/25 10:07 O2 Flow Rate 2 05/06/25 06:00 Discharge Plan Discharge Patient Disposition: Home Condition: Stable Prescriptions: Continued mupirocin 2 % ointment 1 applic topical TID Qty: 15 2RF Rx Instructions: apply to wound TID and as needed with dressing changes, cover with band-aid (DME) Cam boot to right See Rx Instructions .Route .MEDSUPPLY Qty: 1 0RF Rx Instructions: As directed (DME) Wheelchair with elevated right foot rest See Rx Instructions .Route .MEDSUPPLY Qty: 1 0RF Rx Instructions: As directed by HOME (DME) KOTLIK Boot to right See Rx Instructions .Route .MEDSUPPLY Qty: 1 0RF Rx Instructions: As directed by [facility] venlafaxine 75 mg tablet 75 mg PO BID (DME) Articulating AFO to the left See Rx Instructions .Route .MEDSUPPLY Qty: 1 0RF Rx Instructions: As directed by the rach loera ([facility]) Custom insoles 1 to right See Rx Instructions .Route .MEDSUPPLY Qty: 1 0RF Rx Instructions: As directed pregabalin 150 mg capsule 150 mg PO BID (DME) Dexcom G6 Registered Nurse Obstetrics Misc See Rx Instructions .Route Qty: 1 3RF Rx Instructions: check blood sugar rizatriptan 10 mg tablet See Rx Instructions PO .COMPLEX Qty: 14 2RF Rx Instructions: take 1 tablet at onset of headache; if no relief, may repeat 1 tablet after at least 2 hrs (DME) Dexcom G6 Transmitter Device See Rx Instructions .ROUTE .COMPLEX Qty: 1 0RF Dose Instruction: USE EVERY 90 DAYS Rx Instructions: USE EVERY 90 DAYS insulin lispro [Humalog U-100 Insulin] 100 unit/mL solution See Rx Instructions .ROUTE .COMPLEX Qty: 140 0RF Dose Instruction: INJECT INSULIN SUB-Q PER PUMP DIRECTED, MAX DOSE IS 150 UNITS PER DAY. Rx Instructions: INJECT INSULIN SUB-Q PER PUMP DIRECTED, MAX DOSE IS 150 UNITS PER DAY. ([facility]) Dexcom G6 Sensor Device See Rx Instructions .ROUTE .COMPLEX Qty: 6 0RF Dose Instruction: USE DIRECTED CHANGE EVERY 10 DAYS Rx Instructions: USE DIRECTED CHANGE EVERY 10 DAYS (DME) Diabetic Shoes with Custom Molded Orthotics See Rx Instructions .ROUTE .MEDSUPPLY Qty: 1 0RF Rx Instructions: Made by the [facility] loera celecoxib 200 mg capsule 200 mg PO BID Discharge Order = DC NOW: Discharge Order (Routine); Ordered 05/06/25 Ordered By: Winifred Schulte Other Ambulatory Orders: DME: Miscellaneous (Order) Location: None Selected Ordered By: Winifred Schulte Referrals: Steve Lerma MD [Primary Care Provider, Internal Medicine] Discharge Diet: Diabetic Patient Instructions: Opioid Safety, Patient Portal & Buck Instructions Plan of Treatment: followup with pcp in 4 -7 days. use glucometer Discharge Attestations Time Spent in Discharge Care*: less than 30 min Status at Discharge: Cognitive status at discharge: cognitively intact , Behavioral status at discharge: cooperative , Quality Metrics Clinical Quality Measures [ No reported AMI, CVA or VTE this stay] Coding Level of Care Code 20887 Diagnoses DKA (diabetic ketoacidoses) E10.10 Diabetes mellitus complication detail: without coma Diabetes mellitus type: type 1 Insulin long-term use Z79.4
== END 2025-05-06 18:55 | disposition home or self-care (01) | DRG 639 ==
LOC: ER 11:45 → ICU 12:07
PROVIDERS: Emergency Medicine; Admitting Provider Family Medicine; Emergency Provider Physician Assistant; PCP Internal Medicine; Visit Provider Internal Medicine
DX: E10.10 Type 1 diabetes mellitus with ketoacidosis without coma (principal); Z79.4 Long term (current) use of insulin; F32.9 Major depressive disorder, single episode, unspecified; Z86.16 Personal history of COVID-19; E78.5 Hyperlipidemia, unspecified
CPT/HCPCS: 36415; 36416; 36600; 80048; 80051; 80053; 80061; 81001; 82009; 82330; 82805; 82962; 83036; 83605; 83735; 84100; 84145; 84443; 85025; 85651; 86140; 87040; 87637; 94664; 96365; 96366; 96367; 96372; 96375; 99285; J0696; J1650; J1815; J2405; J2470; J7030; J9999